=== PATIENT | male | born 1955 | race African-American/Black ===

== ENCOUNTER 2018-08-20 15:08 | Inpatient (IN) | payer OTHER ==
[~2018-08-20] VITALS: Ht 167.6 cm; Wt 71.7 kg
--- NOTE | 2018-08-20 15:10 | NUR ---
BIBRA 860 FROM HOME C/O LEFT HIP PAIN S/P FELL OFF HIS WHEELCHAIR 06/17 [facility] , ATTACHED TO MONITOR , VSS , WILL CONTINUE TO MONITOR
[2018-08-20] MEDS ORDERED: ONDANSETRON 4 MG TAB.RAPDIS ONE (15:22)
[2018-08-20] MEDS ORDERED: HYDROCODONE/APAP 10/325MG 1 EA TABLET ONE (15:22)
[2018-08-20] MEDS ORDERED: ONDANSETRON 4 MG TAB.RAPDIS SL ONE (15:30)
[2018-08-20] MEDS ORDERED: HYDROCODONE/APAP 10/325MG 1 EA TABLET PO ONE (15:30)
--- NOTE | 2018-08-20 16:20 | NUR ---
TRANSFERED PT TO CT DEPARTMENT VIA ACLS PROTOCOL , VSS ,
[2018-08-20] MEDS ORDERED: MORPHINE SULFATE INJ 4 MG/ML DISP.SYRIN ONE (17:15)
[2018-08-20] MEDS ORDERED: CIPR-262 PO (17:26)
[2018-08-20] MEDS ORDERED: FERR325T23 PO (17:26)
[2018-08-20] MEDS ORDERED: METF-440 PO (17:26)
[2018-08-20] MEDS ORDERED: IV NS 0.9% 500 ML BAG IV ONE (17:30)
[2018-08-20] MEDS ORDERED: MORPHINE SULFATE INJ 2 MG/ML DISP.SYRIN IM ONE (17:30)
--- NOTE | 2018-08-20 17:30 | NUR ---
IV STARTED @ RIGHT FA # 18 , BLOOD COLLECTED
--- NOTE | 2018-08-20 17:33 | NUR ---
CALLED NURSING SUP REQUESTED MED SURG BED FOR THIS PT
[2018-08-20 17:38] LABS: BASOPHILS # (AUTO) 0.1 /CMM (0.0-0.2); BASOPHILS % (AUTO) 0.7 % (0.0-2.0); EOSINOPHILS % (AUTO) 0.9 % (0.0-6.0); HEMATOCRIT 32 % (39-51); HEMOGLOBIN 10.4 g/dL (13.5-17.5); LYMPHOCYTES # (AUTO) 1.1 /CMM (0.8-4.8); LYMPHOCYTES % (AUTO) 15.4 % (20.0-44.0); MEAN CORPUSCULAR HGB CONC 33 g/dl (31.0-36.0); MEAN CORPUSCULAR VOLUME 78 fL (80-96); MONOCYTES # (AUTO) 0.2 /CMM (0.1-1.30); MONOCYTES % (AUTO) 3.4 % (2.0-12.0); NEUTROPHILS # (AUTO) 5.8 /CMM (1.8-8.9); NEUTROPHILS % (AUTO) 79.6 % (43.0-81.0); PLATELET COUNT (AUTO) 462 /CMM (150-450); RDW COEFFICIENT OF VARIATION 12.7 (11.5-15.0); RED BLOOD CELL COUNT(AUTO) 4.05 MIL/uL (4.5-6.0); WHITE BLOOD COUNT (AUTO) 7.3 K/uL (4.3-11.0)
[2018-08-20 17:53] LABS: CALCIUM, SERUM 8.7 mg/dL (8.5-10.1); CREATININE 1.2 mg/dL (0.6-1.3); INR 1.09 (0.85-1.15); POTASSIUM 4.1 mmol/L (3.5-5.1)
--- NOTE | 2018-08-20 18:20 | NUR ---
ADMIT 327-2
--- NOTE | 2018-08-20 18:55 | NUR ---
TEXT MESSAGED DR MCCAIN FOR THIS PATIENT
--- NOTE | 2018-08-20 19:26 | NUR ---
REPORT GIVEN TO LESLIE JERNIGAN FOR CONTINUITY OF CARE
--- NOTE | 2018-08-20 19:47 | NUR ---
Patient is resting comfortably in bed with eyes closed. Easily aroused. VSS
--- NOTE | 2018-08-20 21:32 | NUR ---
DR. SEVILLA FROM [facility] SPEAKING TO DR. MONAE REGARDING POC.
--- NOTE | 2018-08-20 22:13 | NUR ---
NO ORTHO ACCEPTING AT [facility] SO PT CAN STAY AT [place] PER [facility] [phone]
--- NOTE | 2018-08-20 22:20 | NUR ---
CALLED DR. BUSH FOR ORTHO CONSULT, PAGED.
--- NOTE | 2018-08-20 22:31 | NUR ---
DR. SMITH SPEAKING TO DR. SMITH REGARDING ORTHO CONSULT.
--- NOTE | 2018-08-20 22:32 | NUR ---
ADMIT TO [facility]-2 MED SURG
--- NOTE | 2018-08-20 22:55 | NUR ---
PT TRANSPORTED TO M/S UNIT STABLE CONDITION. HOLLIE. BENIGNO.
[2018-08-20] MEDS ORDERED: INSULIN REGULAR, HUMAN 100 UNIT/ML 3 ML VIAL SQ PRN (23:00)
[2018-08-20] MEDS ORDERED: HYDROMORPHONE INJ 0.5 MG/0.5 ML SYRINGE IV PRN (23:00)
[2018-08-20] MEDS ORDERED: ONDANSETRON HCL/PF 4 MG/2 ML VIAL IV PRN (23:00)
[2018-08-20] MEDS ORDERED: DEXTROSE 50%-WATER 50 ML DISP.SYRIN IV PRN (23:00)
[2018-08-20 23:20] VITALS: BP 163/91
[2018-08-20 23:30] VITALS: BP 163/91
--- NOTE | 2018-08-20 23:30 | NUR ---
NEW ADMISSION RN NOTES RECEIVED PATIENT FROM ER TO ROOM 327-2 VIA GURNEY ACCOMPANIED BY STAFF, A & O X 4, NO ACUTE DISTRESS NOTED. NO SOB, RESP EVEN & UNLABORED. AT RA, SATTING 97%. PT HAS C/O PAIN TO LEFT HIP WHEN MOVES HIS LEFT LEG. INSTRUCTED HIM TO KEEP HIS LEG STRAIGHT MUCH POSSIBLE, VERBALIZED UNDERSTANDING. SUPPORTED LEFT LEG WITH EXTRA PILLOWS, PT VERBALIZED THAT IT IS COMFORTABLE FOR HIM. HAS MALONE CATH IN PLACE WITH LEG BAG, NOTED WITH CLEAR YELLOW COLOR URINE. PT IS NPO EXCEPT MEDS. VS CHECKED. IV ACCESS TO RIGHT FA, INTACT PATENT. WILL START IVF ORDERED. BODY CHECK DONE, PHOTOS TAKEN, PLACED IN THE CHART. ALL NEW ORDERS VERIFIED WITH MD. ALL BELONGINGS ACCOUNTED FOR & DOCUMENTED BY STEAM CRANE OPERATOR. SAFETY MEASURES IN PLACE. BED ALARM ON. BED IN LOW LOCKED POSITION. CALL LIGHT WITHIN REACH. WILL MONITOR CLOSELY.
[2018-08-21] MEDS: IV 1/2NS 1000 ML 1,000 ML IV PRN ×2 (00:22→11:57)
[2018-08-21] MEDS: BLOOD SUGAR DIAGNOSTIC 1 EACH STRIP IN SCH ×5 (00:22→23:48)
[2018-08-21 00:25] VITALS: BP 145/88
--- NOTE | 2018-08-21 00:45 | NUR ---
HELD SLIDING SCALE INSULIN PATIENT'S BS IS 190MG/DL, PT IS NPO EXCEPT MEDS PER MD ORDER. SLIDING SCALE INSULIN HELD TO PREVENT HYPOGLYCEMIA. WILL RECHECK BS LEVEL IN AM ORDERED BY MD.
--- NOTE | 2018-08-21 02:00 | NUR ---
MS RN NOTE PATIENT NOTED TO BE SLEEPING COMFORTABLY. ASKED THE PATIENT EARLIER IF HE NEEDS PAIN MEDICINE, PT STATED THAT HE ONLY FEELS THE PAIN IF HE MOVES HIS LEG BUT OTHERWISE HE IS OK & DOES NOT NEED ANY MEDICINE AT THIS TIME. WILL MONITOR CLOSELY FOR SAFETY & TO MANAGE PAIN.
[2018-08-21] MEDS ORDERED: HYDROMORPHONE 1 MG/1 ML DISP.SYRIN ONE (05:31)
--- NOTE | 2018-08-21 05:44 | NUR ---
PRN DILAUDID GIVEN PATIENT HAS C/O LEFT HIP PAIN 06/17, 0.5MG DILAUDID IS OUT OF STOCK ON [facility] 3 [facility] & CLOT[facility]DE [facility], 1MG/ML DILAUDID IS ONLY AVAILABLE IN ER AT THIS TIME. DELON SIMS DID OVERRIDE THE ORDER, 0.5MG DOSE WAS WASTED WITH DELON SIMS & DELON COOL & 0.5 MG DOSE WAS ADMINISTERED TO THE PATIENT ORDERED BY MD. WILL REASSESS THE PT FOR EFFECTIVENESS.
--- NOTE | 2018-08-21 06:56 | NUR ---
MS RN CLOSING NOTES PATIENT SLEPT WELL @ NIGHT. A & O X 4, NO ACUTE DISTRESS NOTED. NO SOB, RESP EVEN & UNLABORED. AT RA, SATTING 96%. PT HAD C/O PAIN TO LEFT HIP, PRN DILAUDID GIVEN & WAS EFFECTIVE. SUPPORTED LEFT LEG WITH EXTRA PILLOWS, PT VERBALIZED THAT IT IS COMFORTABLE FOR HIM. HAS MALONE CATH IN PLACE WITH LEG BAG, NOTED WITH CLEAR DARK YELLOW COLOR URINE. PT IS NPO EXCEPT MEDS. IV ACCESS TO RIGHT FA, INTACT PATENT, RUNNING WITH IVF ORDERED. ALL NEEDS MET. SAFETY MEASURES IN PLACE. BED IN LOW LOCKED POSITION. CALL LIGHT WITHIN REACH. WILL ENDORSE TO AM RN FOR CONTINUITY OF CARE.
--- NOTE | 2018-08-21 07:35 | NUR ---
MS RN OPENING NOTES RECEIVED PT FROM NIGHTSHIFT NURSE IN STABLE CONDITION. PT IS A/O X3. NO SOB OR ACUTE SIGNS OF DISTRESS NOTED. BREATHING IS EVEN AND UNLABORED. PT ON RA AND SATING WELL. HE DENIES ANY PAIN AT THIS TIME. IV TO RIGHT FA NOTED TO BE PATENT NAD INTACT. NO REDNESS OR SIGNS OF INFILTRATION NOTED. PT TOLERATING IV INFUSION WELL. MALONE CATHETER NOTED TO BE DRAINING CLEAR, KENYA COLORED URINE INTO PT'S PERSONAL COLLECTION BAG. NPO STATUS MAINTAINED FOR POSSIBLE OR PROCEDURE ONCE PT IS EVALUATED BY ORTHO. PT VERBALIZED UNDERSTANDING OF DIETARY STATUS. BED IN LOW LOCKED POSITION, SIDE RAILS UP X2, CALL LIGHT WITHIN REACH. WILL CONTINUE TO MONITOR
[2018-08-21 08:00] VITALS: BP 137/73
[2018-08-21 08:44] LABS: BASOPHILS % (AUTO) 0.7 % (0.0-2.0); EOSINOPHILS % (AUTO) 2.5 % (0.0-6.0); HEMATOCRIT 28 % (39-51); HEMOGLOBIN 8.8 g/dL (13.5-17.5); LYMPHOCYTES # (AUTO) 0.9 /CMM (0.8-4.8); LYMPHOCYTES % (AUTO) 15.9 % (20.0-44.0); MEAN CORPUSCULAR HGB CONC 32 g/dl (31.0-36.0); MEAN CORPUSCULAR VOLUME 81 fL (80-96); MONOCYTES # (AUTO) 0.4 /CMM (0.1-1.30); MONOCYTES % (AUTO) 6.7 % (2.0-12.0); NEUTROPHILS # (AUTO) 4.4 /CMM (1.8-8.9); NEUTROPHILS % (AUTO) 74.2 % (43.0-81.0); PLATELET COUNT (AUTO) 357 /CMM (150-450); RDW COEFFICIENT OF VARIATION 14.6 (11.5-15.0); RED BLOOD CELL COUNT(AUTO) 3.42 MIL/uL (4.5-6.0); WHITE BLOOD COUNT (AUTO) 5.9 K/uL (4.3-11.0)
[2018-08-21 08:53] LABS: CALCIUM, SERUM 7.9 mg/dL (8.5-10.1); CREATININE 1.1 mg/dL (0.6-1.3); POTASSIUM 3.9 mmol/L (3.5-5.1)
[2018-08-21 09:45] LABS: THYROID STIMULATING HORMONE 1.007 uIU/mL (0.358-3.74)
[2018-08-21] MEDS: CEFAZOLIN 1 GM in IV NS 0.9% 50 ML IV SCH ×2 (09:56→18:08)
[2018-08-21] MEDS ORDERED: CEPHALEXIN MONOHYDRATE 250 MG CAPSULE PO SCH (12:00)
[2018-08-21 16:00] VITALS: BP 164/92
--- NOTE | 2018-08-21 18:58 | NUR ---
MS RN CLOSING NOTES PT REMAIN STABLE ALL NEEDS MET DURING SHIFT AND ORDERS CARRIED OUT ACCORDINGLY. ALL DUE MEDS GIVEN. PRN AND WOUND CARE RENDERED. PT EDUCATED ON NPO STATUS POST MIDNIGHT FOR OR PROCEDURE. CONSENTS SIGNED BY PT. CHECKLIST TO BE COMPLETED BY NIGHTSHIFT AND AM RN. IV REMAINS PATENT AND INTACT. HE WAS REPOSITIONED AND TURNED PER HOSPITAL PROTOCOL. MALONE REMAINS PATENT AND INTACT.
--- NOTE | 2018-08-21 19:34 | NUR ---
MS RN NOTES RECEIVE PT IN BED AWAKE A/OX3, NO COMPLAIN OF PAIN. IN STABLE CONDITION, NOT IN DISTRESS, SAFETY MEASURES IN PLACE WILL CONTINUE TO MONITOR.
[2018-08-21 20:00] VITALS: BP_SYST 154; BP_SYST 164; BP_DIAS 72; BP_DIAS 88
[2018-08-21] MEDS: HYDROMORPHONE 1 MG/1 ML DISP.SYRIN IV PRN (23:45)
[2018-08-22] MEDS: CEFAZOLIN 1 GM in IV NS 0.9% 50 ML IV SCH ×2 (02:53→10:18)
[2018-08-22] MEDS: IV 1/2NS 1000 ML 1,000 ML IV PRN (03:54)
--- NOTE | 2018-08-22 05:23 | NUR ---
MS RN NOTES PATIENT REFUSED PICTURE TO BE RE TAKEN AT HIS WOUNDS PER PATIENT "THEY JUST TOOK IT YESTERDAY AND THEY DON'T DO ANYTHING YET" DESPITE EXPLAINING RISKS AND BENEFITS OFFERED 3 TIMES STRONGLY REFUSAL OF PICTURES TO BE RE TAKEN.
[2018-08-22] MEDS: BLOOD SUGAR DIAGNOSTIC 1 EACH STRIP IN SCH ×4 (05:55→21:52)
[2018-08-22 06:32] LABS: BASOPHILS # (AUTO) 0.1 /CMM (0.0-0.2); BASOPHILS % (AUTO) 0.9 % (0.0-2.0); EOSINOPHILS % (AUTO) 3.2 % (0.0-6.0); HEMATOCRIT 29 % (39-51); HEMOGLOBIN 9.3 g/dL (13.5-17.5); LYMPHOCYTES # (AUTO) 1.1 /CMM (0.8-4.8); LYMPHOCYTES % (AUTO) 15.1 % (20.0-44.0); MEAN CORPUSCULAR HGB CONC 33 g/dl (31.0-36.0); MEAN CORPUSCULAR VOLUME 81 fL (80-96); MONOCYTES # (AUTO) 0.4 /CMM (0.1-1.30); MONOCYTES % (AUTO) 6.1 % (2.0-12.0); NEUTROPHILS # (AUTO) 5.4 /CMM (1.8-8.9); NEUTROPHILS % (AUTO) 74.7 % (43.0-81.0); PLATELET COUNT (AUTO) 319 /CMM (150-450); RDW COEFFICIENT OF VARIATION 14.4 (11.5-15.0); RED BLOOD CELL COUNT(AUTO) 3.55 MIL/uL (4.5-6.0); WHITE BLOOD COUNT (AUTO) 7.2 K/uL (4.3-11.0)
--- NOTE | 2018-08-22 06:33 | NUR ---
MS RN CLOSING NOTES ASLEEP AND EASILY AWAKEN, A/O X 3. MAINTAINS NPO AT MIDNIGHT. NO COMPLAIN OF PAIN AT THIS TIME. TOLERATING ROOM AIR 99%. NOT IN DISTRESS. RESPIRATION EVEN AND UNLABORED. KEPT CLEAN AND DRY AND COMFORTABLE, ALL NURSING CARE RENDERED. NEEDS ATTENDED AND ANTICIPATED. ON LOW BED AT ALL TIMES TO ENSURE SAFETY. SAFE HAZARD FREE ENVIRONMENT PROVIDED. CALL LIGHT WITHIN EASY TO REACH. WILL ENDORSE NEXT SHIFT CONTINUITY OF CARE.
[2018-08-22 06:48] LABS: ALANINE AMINOTRANSFERASE 12 U/L (12-78); ALBUMIN 2.3 g/dL (3.4-5.0); ALKALINE PHOSPHATASE 73 U/L (46-116); ASPARTATE AMINOTRANSFERASE 16 U/L (15-37); BILIRUBIN,TOTAL 0.9 mg/dL (0.2-1.0); CALCIUM, SERUM 8.3 mg/dL (8.5-10.1); CARBON DIOXIDE 23 mmol/L (21-32); CHLORIDE 104 mmol/L (98-107); CREATININE 1.1 mg/dL (0.6-1.3); GLUCOSE 111 mg/dL (74-106); MAGNESIUM 1.6 mg/dL (1.8-2.4); PHOSPHORUS 3.2 mg/dL (2.5-4.9); POTASSIUM 3.5 mmol/L (3.5-5.1); SODIUM SERUM 139 mmol/L (136-145); TOTAL PROTEIN, SERUM 6.5 g/dL (6.4-8.2); UREA NITROGEN, BLOOD 18 mg/dL (7-18)
[2018-08-22 06:51] LABS: TROPONIN I < 0.017 ng/mL (0.00-0.056)
[2018-08-22 08:35] VITALS: BP 166/92
[2018-08-22] MEDS: LISINOPRIL (20MG) 20 MG TABLET PO SCH (09:14)
[2018-08-22] MEDS: HYDROMORPHONE 1 MG/1 ML DISP.SYRIN IV PRN ×2 (09:18→16:06)
--- NOTE | 2018-08-22 09:20 | NUR ---
MS RN INITIAL NOTES Patient in bed, on room air, denies shortness of breath. Was endorsed NPO since midnight, patient reported he had a bite of sandwich this morning but not drink fluids. Instructed patient not to eat or drink for possible surgery this morning, verbalized understanding, place patient on NPO as per prior ordered. Complaint of left hip pain 8, medicated with IV Dilaudid, will reassess. Changed urinary bee bag to drain by gravity, bag off the floor. Call light within reach.
[2018-08-22] MEDS: hydrALAZINE HCL 50 MG TABLET PO SCH ×3 (09:21→16:23)
[2018-08-22] MEDS: ISOSORBIDE DINITRATE (20MG) 20 MG TABLET PO SCH ×2 (09:23→16:23)
[2018-08-22] MEDS: Magnesium 1GM/D5W 100ML PREMIX 100 ML IV SCH ×2 (10:58→12:00)
[2018-08-22] MEDS ORDERED: DEXTROSE 50%-WATER 50 ML DISP.SYRIN IV PRN (11:30)
[2018-08-22] MEDS: INSULIN REGULAR, HUMAN 100 UNIT/ML 3 ML VIAL SQ PRN ×2 (11:32→16:42)
[2018-08-22 13:00] VITALS: BP 150/84
[2018-08-22] MEDS ORDERED: ANESTHESIA TRAY IN PYXIS 1 EA TRAY MC ONE (14:06)
[2018-08-22] MEDS ORDERED: BUPIVACAINE 0.5 % PF 150 MG/30 ML VIAL ONE (14:32)
[2018-08-22] MEDS ORDERED: BUPIVACAINE MPF 0.5% W/EPI INJ 30 ML VIAL ONE (14:32)
[2018-08-22] MEDS ORDERED: BACITRACIN 50000 UNITS/VIAL ONE (14:32)
[2018-08-22] MEDS ORDERED: FENTANYL PF 100MCG/2ML AMPUL ONE (14:50)
[2018-08-22] MEDS ORDERED: MIDAZOLAM HCL 2 MG/2ML VIAL ONE (14:51)
[2018-08-22] MEDS ORDERED: BUPIVACAINE 0.75% DEXT-PF 2 ML AMPUL ONE (14:51)
[2018-08-22] MEDS: SOD FERRIC GLUC 125 MG in IV NS 0.9% 100 ML IV SCH (16:07)
--- NOTE | 2018-08-22 18:29 | NUR ---
MS RN Closing notes Patient off unit, surgery today ORIF Left femoral neck fracture by Dr. Turcios. Will endorse to oncoming RN.
[2018-08-22] MEDS ORDERED: HYDROCODONE/APAP 10/325MG 1 EA TABLET PO PRN (19:00)
[2018-08-22 19:03] VITALS: BP 109/59
--- NOTE | 2018-08-22 19:15 | NUR ---
Patient is back from surgery, s/p ORIF left hip by Dr. Turcios. Left hip dressing intact, clean and dry. Resumed pre op orders per Dr. Turcios. Endorsed to night RN.
--- NOTE | 2018-08-22 19:30 | NUR ---
RN NOTE; RECEIVED PT IN BED AWAKE AND RESPONSIVE, BREATHING EVENLY,. NO SOB. NAD. SKIN WARM AND DRY. DRESSING ON L HIP/ LATERAL THIGH C/D/I . DENIED ANY PAIN OR DISCOMFORT AT THIS TIME. F/C IN PLACE. NEEDS ATTENDED. BED LOW LOCKED. CALL LIGHT WITHIN REACH, WILL CONT TO MONITOR ,
[2018-08-22 20:00] VITALS: BP_SYST 109; BP_DIAS 48; BP_DIAS 49
[2018-08-22] MEDS ORDERED: IV PREMIX D5 1/2NS + KCL 1,000 ML IV PRN (20:00)
[2018-08-23] MEDS: ANCEF 1 GM/50 ML D5W IV SCH ×4 (01:08→08:59)
[2018-08-23] MEDS: MORPHINE SULFATE INJ 4 MG/ML DISP.SYRIN IV PRN ×2 (03:12→07:21)
--- NOTE | 2018-08-23 03:12 | NUR ---
MORPHINE GIVEN ORDERED FOR C/O SEVERE L HIP PAIN .WILL CONT TO MONITOR ,
[2018-08-23] MEDS: BLOOD SUGAR DIAGNOSTIC 1 EACH STRIP IN SCH ×2 (06:34→12:18)
[2018-08-23] MEDS: INSULIN REGULAR, HUMAN 100 UNIT/ML 3 ML VIAL SQ PRN ×2 (06:37→12:33)
--- NOTE | 2018-08-23 06:43 | NUR ---
RN NOTE; PT IN BED AWAKE AND ALERT. BREATHING EVENLY. NO SOB. NO ACUTE EVENT DURING THE NIGHT. L HIP SX DRESSING C/D/I. PAIN MED GIVEN ORDERED PER PT'S REQUEST. NEEDS ATTENDED. BED LOW LOCKED .CALL LIGHT WITHIN REACH. WILL CONT TO MONITOR,
[2018-08-23 07:07] LABS: BASOPHILS % (AUTO) 0.4 % (0.0-2.0); EOSINOPHILS % (AUTO) 2.7 % (0.0-6.0); HEMATOCRIT 25 % (39-51); HEMOGLOBIN 7.9 g/dL (13.5-17.5); LYMPHOCYTES # (AUTO) 0.8 /CMM (0.8-4.8); LYMPHOCYTES % (AUTO) 10.8 % (20.0-44.0); MEAN CORPUSCULAR HGB CONC 32 g/dl (31.0-36.0); MEAN CORPUSCULAR VOLUME 81 fL (80-96); MONOCYTES # (AUTO) 0.6 /CMM (0.1-1.30); MONOCYTES % (AUTO) 8.5 % (2.0-12.0); NEUTROPHILS # (AUTO) 5.7 /CMM (1.8-8.9); NEUTROPHILS % (AUTO) 77.6 % (43.0-81.0); PLATELET COUNT (AUTO) 314 /CMM (150-450); RDW COEFFICIENT OF VARIATION 14.3 (11.5-15.0); RED BLOOD CELL COUNT(AUTO) 3.09 MIL/uL (4.5-6.0); WHITE BLOOD COUNT (AUTO) 7.3 K/uL (4.3-11.0)
--- NOTE | 2018-08-23 07:15 | NUR ---
MS RN OPENING NOTE RECEIVED PATIENT IN BED. ALERT ORIENTED X4. ON ROOM AIR TOLERATING WELL. IN NO APPARENT DISTRESS OR DISCOMFORT AT THIS TIME. RESPIRATION EVEN AND UNLABORED. DENIES PAIN AND SOB AT THIS TIME. PATIENT WITH MALONE CATH DRAINING CLEAR YELLOW URINE. PATIENT WITH BILATERAL LOWER EXTREMITY WOUNDS DRESSING INTACT AND CLEAN. RIGHT FA 18G IVC WITH FLUIDS RUNNING AT 70ML/HR. ALL NEEDS ATTENDED. KEPT CLEAN AND COMFORTABLE. SAFETY MEASURES IN PLACE, BED IN LOW LOCKED POSITION, SIDE RAILS UP X2, CALL LIGHT WITHIN EASY REACH. WILL CONTINUE TO MONITOR.
[2018-08-23 07:19] LABS: CALCIUM, SERUM 7.9 mg/dL (8.5-10.1); CREATININE 1.3 mg/dL (0.6-1.3); POTASSIUM 3.6 mmol/L (3.5-5.1)
--- NOTE | 2018-08-23 07:23 | NUR ---
MORPHINE GIVEN ORDERED FOR C/O SEVERE L HIP PAIN .WILL CONT TO MONITOR ,
[2018-08-23 08:00] VITALS: BP 149/74
[2018-08-23] MEDS ORDERED: ENOX40DI SQ (08:23)
[2018-08-23] MEDS ORDERED: Hydrocodone/Apap 10/325MG PO (08:23)
[2018-08-23] MEDS ORDERED: LISI20TA61 PO (08:23)
[2018-08-23] MEDS ORDERED: CEPH-570 PO (08:23)
[2018-08-23] MEDS: ISOSORBIDE DINITRATE (20MG) 20 MG TABLET PO SCH ×2 (09:00→16:27)
[2018-08-23] MEDS: hydrALAZINE HCL 50 MG TABLET PO SCH ×3 (09:00→16:28)
[2018-08-23] MEDS ORDERED: ENOXAPARIN SODIUM 40 MG/0.4 ML DISP.SYRIN SQ SCH (09:00)
[2018-08-23] MEDS: LISINOPRIL (20MG) 20 MG TABLET PO SCH (09:00)
[2018-08-23] MEDS: FERROUS SULFATE (325 MG) 325 MG/TAB TABLET PO SCH ×2 (09:02→16:27)
--- NOTE | 2018-08-23 14:00 | NUR ---
PATIENT WITH BILATERAL EXTREMITY WOUNDS. DRESSING IS SOILED. CALLED DR. MCCAIN TO OBTAIN SPECIFIC INSTRUCTIONS FOR WOUND CARE. WAS TOLD WOUND CARE CONSULT WILL BE PERFORMED AT THE SNF. CHANGED THE SOILED DRESSING BY CLEANING WITH NS PATTED DRY COVERED WITH MEPILEX AND SECURED WITH KERLIX. WILL CONTINUE TO MONITOR.
--- NOTE | 2018-08-23 14:10 | NUR ---
REQUESTED SCHEDULED FERRLECT FROM PHARMACY. AWAITING DELIVERY TO ADMINISTER. WILL CONTINUE TO MONITOR.
--- NOTE | 2018-08-23 15:00 | NUR ---
REMOVED MALONE CATHETER PER DR. MCCAIN'S ORDER. TIP INTACT. WILL CONTINUE TO MONITOR FOR VOIDING.
[2018-08-23 16:00] VITALS: BP 134/62
[2018-08-23 16:28] VITALS: BP 134/62
[2018-08-23] MEDS: SOD FERRIC GLUC 125 MG in IV NS 0.9% 100 ML IV SCH (16:28)
--- NOTE | 2018-08-23 17:20 | NUR ---
MS AGENCY SERVICE COORDINATOR NOTE. RECEIVED ORDER FOR DISCHARGE PATIENT TO [facility]. REPORT GIVEN TO DELON KENNEY. PATIENT IS STABLE. ALERT ORIENTED X4. VITAL SIGNS STABLE. IN NO APPARENT DISTRESS OR DISCOMFORT. EXITCARE PREPARED AND DISCUSSED WITH PATIENT. SIGNED DISCHARGE PAPERWORK, BELONGINGS CHECKED AND ACCOUNTED FOR. FORM SIGNED ALL COPIES PLACED IN CHART. MEDICATIONS LIST ATTACHED TO PATIENT'S FOLDER. PATIENT REFUSED PICTURES OF SKIN IMPAIRMENTS. REFUSED FLU VACCINE. ALL DUE MEDICATIONS GIVEN. ORDERS CARRIED OUT. IV CATHETER REMOVED TIP INTACT. ID BAND REMOVED. PATIENT LEFT THE UNIT VIA AMBULANCE AT 1720.
== END 2018-08-23 17:45 | DRG 308 ==
LOC: ER 15:10 → MED 22:51
PROVIDERS: ADMIT Internal Medicine; ATTEND Internal Medicine
PROC: 0QS704Z Reposition Left Upper Femur with Internal Fixation Device, Open Approach (ICD-10-PCS; principal; 2018-08-22 15:00)
DX: S72.032A Displaced midcervical fracture of left femur, initial encounter for closed fracture (principal); E11.621 Type 2 diabetes mellitus with foot ulcer; L97.509 Non-pressure chronic ulcer of other part of unspecified foot with unspecified severity; Z99.3 Dependence on wheelchair; Y92.89 Other specified places as the place of occurrence of the external cause; D50.9 Iron deficiency anemia, unspecified; I10 Essential (primary) hypertension; W05.0XXA Fall from non-moving wheelchair, initial encounter; E44.1 Mild protein-calorie malnutrition; Z68.25 Body mass index [BMI] 25.0-25.9, adult
CPT/HCPCS: 36415; 71045-TC; 72192-TC; 73020; 80048-TC; 80053-TC; 80061-TC; 82728-TC; 82962-TC; 83540-TC; 83735-TC; 84100-TC; 84439-TC; 84443-TC; 84484-TC; 85025-TC; 85730-TC; 87081-TC; 93307-TC; A4216; A4606; A6402; C1713; C1769; G0378; J0690; J1170; J1650; J1815; J2250; J2270; J2405; J2704; J2916; J3010; J3475; J3490; J7030; J7040; J7050; J7060; Q0162; Z7610

== ENCOUNTER 2018-11-11 14:41 | Emergency (ER) | payer OTHER ==
[~2018-11-11] VITALS: Ht 172.7 cm; Wt 74.8 kg
[~2018-11-11 14:41] MED LIST: CEPH-570 PO; ENOX40DI SQ; FERR325T23 PO; Hydrocodone/Apap 10/325MG PO; LISI20TA61 PO; METF-440 PO
--- NOTE | 2018-11-11 15:00 | NUR ---
[id number] FROM BOARD AND CARE FOR SOB X LAST NIGHT. 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 PT AAOX4, VSS. DENIES CP, DIZZINESS, N/V @ THIS TIME. RR EVEN & UNLABORED. O2 SAT 99% RA. RENZO BOYD @ BS FOR EVAL & WILL CONT TO MONITOR.
[2018-11-11 15:29] LABS: BASOPHILS # (AUTO) 0.1 /CMM (0.0-0.2); BASOPHILS % (AUTO) 1.2 % (0.0-2.0); EOSINOPHILS % (AUTO) 0.9 % (0.0-6.0); HEMATOCRIT 26 % (39-51); HEMOGLOBIN 8.3 g/dL (13.5-17.5); LYMPHOCYTES # (AUTO) 1.5 /CMM (0.8-4.8); LYMPHOCYTES % (AUTO) 23.7 % (20.0-44.0); MEAN CORPUSCULAR HGB CONC 32 g/dl (31.0-36.0); MEAN CORPUSCULAR VOLUME 79 fL (80-96); MONOCYTES # (AUTO) 0.4 /CMM (0.1-1.30); MONOCYTES % (AUTO) 6.8 % (2.0-12.0); NEUTROPHILS # (AUTO) 4.4 /CMM (1.8-8.9); NEUTROPHILS % (AUTO) 67.4 % (43.0-81.0); PLATELET COUNT (AUTO) 459 /CMM (150-450); RED BLOOD CELL COUNT(AUTO) 3.29 MIL/uL (4.5-6.0); WHITE BLOOD COUNT (AUTO) 6.5 K/uL (4.3-11.0)
[2018-11-11 15:43] LABS: ALBUMIN 2.4 g/dL (3.4-5.0); BILIRUBIN,TOTAL 0.4 mg/dL (0.2-1.0); CALCIUM, SERUM 8.3 mg/dL (8.5-10.1); CREATININE 0.8 mg/dL (0.6-1.3); POTASSIUM 3.4 mmol/L (3.5-5.1); TOTAL PROTEIN, SERUM 6.6 g/dL (6.4-8.2)
[2018-11-11] MEDS ORDERED: HYDROCODONE/APAP 5/325MG 1 EACH TABLET ONE (15:44)
--- NOTE | 2018-11-11 15:47 | NUR ---
PT C/O LT FOOT PAIN, MEDICATED PER RENZO BOYD ORDER, PT AMRIT WELL.
[2018-11-11] MEDS ORDERED: HYDROCODONE/APAP 5/325MG 1 EACH TABLET PO ONE (16:00)
--- NOTE | 2018-11-11 16:54 | NUR ---
PT STABLE, LT FOOT PAIN IS BETTER 5/10 & AMRIT WELL. DENIES SOB, CP, DIZZINESS, N/V, WEAKNESS @ THIS TIME. WILL CONT TO MONITOR.
[2018-11-11] MEDS ORDERED: HYDR-4354 PO (16:55)
[2018-11-11] MEDS ORDERED: LISI-603 PO (16:55)
--- NOTE | 2018-11-11 18:34 | NUR ---
PT RESTING EYES CLOSED, EASILY AWAKEN BY VERBAL STIMULI. DENIES CP, SOB, DIZZINESS, N/V, WEAKNESS OR ANY OTHER DISCOMFORT @ THIS TIME. AWAITING BED ASSIGNMENT & WILL CONT TO MONITOR.
--- NOTE | 2018-11-11 19:19 | NUR ---
RECEIVED REPORT FROM CÉSAR JERNIGAN FOR IVELISSE
--- NOTE | 2018-11-11 19:20 | NUR ---
REPORT GIVEN TO DELON CASTELLANOS FOR CONT OF CARE.
--- NOTE | 2018-11-11 20:35 | NUR ---
PT RESTING COMFORTABLY IN BED. EASILY AROUSABLE. STILL ON CONTINUOUS MONITOR. WILL CONTINUE TO MONITOR
--- NOTE | 2018-11-11 21:57 | NUR ---
Patient does not wish to proceed with medical care recommended by Dr. Schofield. Patient given information related to possible complications, up to and including , which could occur as a result of leaving the hospital at this time. Patient verbalizes understanding of risks involved due to leaving against medical advice. Patient has signed AMA form. PT TRANSFERRED BACK TO FACILITY WITH [facility], GAVE REPORT TO ABDIAZIZ FOR IVELISSE
[2018-11-11 21:58] VITALS: BP 156/83
== END 2018-11-11 21:59 | disposition left against medical advice (07) ==
LOC: ER 14:42
DX: R06.02 Shortness of breath (principal); E11.9 Type 2 diabetes mellitus without complications; I10 Essential (primary) hypertension; G82.20 Paraplegia, unspecified; Z59.0 Homelessness
CPT/HCPCS: 36415; 71045-TC; 80053-TC; 83880; 84484-TC; 85025-TC; 87081-TC

== ENCOUNTER 2019-02-14 11:34 | Inpatient (IN) | payer OTHER ==
[~2019-02-14] VITALS: Ht 172.7 cm; Wt 63.5 kg
[~2019-02-14 11:34] MED LIST changes: -CEPH-570 PO; -ENOX40DI SQ; +HYDR-4354 PO; -Hydrocodone/Apap 10/325MG PO; +LISI-603 PO; -LISI20TA61 PO
[2019-02-14] MEDS ORDERED: PIPERACILLIN /TAZOBACTAM 3.375 G in IV D5W 50 ML IV ONE (12:00)
[2019-02-14] MEDS ORDERED: VANCOMYCIN 1 GM in IV D5W 250 ML IV ONE (12:00)
[2019-02-14 12:09] LABS: BASOPHILS # (AUTO) 0.1 /CMM (0.0-0.2); BASOPHILS % (AUTO) 1.1 % (0.0-2.0); EOSINOPHILS % (AUTO) 0.8 % (0.0-6.0); HEMATOCRIT 28 % (39-51); HEMOGLOBIN 9.2 g/dL (13.5-17.5); LYMPHOCYTES # (AUTO) 1.1 /CMM (0.8-4.8); LYMPHOCYTES % (AUTO) 19.8 % (20.0-44.0); MEAN CORPUSCULAR HGB CONC 33 g/dl (31.0-36.0); MEAN CORPUSCULAR VOLUME 80 fL (80-96); MONOCYTES # (AUTO) 0.4 /CMM (0.1-1.30); MONOCYTES % (AUTO) 7.7 % (2.0-12.0); NEUTROPHILS # (AUTO) 3.9 /CMM (1.8-8.9); NEUTROPHILS % (AUTO) 70.6 % (43.0-81.0); PLATELET COUNT (AUTO) 398 /CMM (150-450); RED BLOOD CELL COUNT(AUTO) 3.49 MIL/uL (4.5-6.0); WHITE BLOOD COUNT (AUTO) 5.6 K/uL (4.3-11.0)
[2019-02-14 12:19] LABS: CALCIUM, SERUM 8.9 mg/dL (8.5-10.1); CARBON DIOXIDE 25 mmol/L (21-32); CHLORIDE 103 mmol/L (98-107); CREATININE 1.2 mg/dL (0.6-1.3); GLUCOSE 135 mg/dL (74-106); POTASSIUM 3.4 mmol/L (3.5-5.1); SODIUM SERUM 140 mmol/L (136-145); UREA NITROGEN, BLOOD 28 mg/dL (7-18)
[2019-02-14] MEDS ORDERED: HYDROCODONE/APAP 10/325MG 1 EA TABLET ONE (12:22)
[2019-02-14 12:25] LABS: ALANINE AMINOTRANSFERASE 14 U/L (12-78); ALBUMIN 2.7 g/dL (3.4-5.0); ALKALINE PHOSPHATASE 109 U/L (46-116); ASPARTATE AMINOTRANSFERASE 13 U/L (15-37); BILIRUBIN,DIRECT 0.1 mg/dL (0.0-0.2); BILIRUBIN,TOTAL 0.5 mg/dL (0.2-1.0); TOTAL PROTEIN, SERUM 7.7 g/dL (6.4-8.2)
[2019-02-14] MEDS ORDERED: HYDROCODONE/APAP 10/325MG 1 EA TABLET PO ONE (12:30)
--- NOTE | 2019-02-14 13:00 | NUR ---
report given to nabil figueroa. pt awaiting transfer to floor.
--- NOTE | 2019-02-14 13:01 | NUR ---
[facility] [id number]
--- NOTE | 2019-02-14 13:05 | NUR ---
called [facility] x 2
[2019-02-14] MEDS ORDERED: HYDROCODONE/APAP 5/325MG 1 EACH TABLET PO PRN (13:30)
[2019-02-14] MEDS ORDERED: ZOLPIDEM TARTRATE 5 MG TABLET PO PRN (13:30)
[2019-02-14] MEDS ORDERED: ACETAMINOPHEN 325 MG TABLET PO PRN (13:30)
[2019-02-14] MEDS ORDERED: MAG HYDROX/AL HYDROX/SIMETH 30 ML UDC PO PRN (13:30)
[2019-02-14] MEDS ORDERED: MAGNESIUM HYDROXIDE 30 ML UDC PO PRN (13:30)
[2019-02-14] MEDS ORDERED: ONDANSETRON HCL/PF 4 MG/2 ML VIAL IVP PRN (13:30)
[2019-02-14] MEDS ORDERED: Z GUARD REMEDY 2 OZ OINT TP PRN (13:30)
--- NOTE | 2019-02-14 13:30 | NUR ---
ADMISSION NOTE PT WAS BROUGHT UP AT THIS TIME FROM THE ER. NOTED TO BE A/OX4, BREATHING EVEN AND UNLABORED ON RA, NO CURRENT COMPLAINTS OF ANY PAIN OR DISTRESS, IV IS PATENT AND INTACT, SAFETY PRECAUTIONS IN PLACE, CALL LIGHT WITHIN REACH, WILL MONITOR ACCORDINGLY.
[2019-02-14] MEDS ORDERED: FEE PK DOSING 1 MIN EA MC ONE (13:46)
[2019-02-14] MEDS: METFORMIN 500 MG TABLET PO SCH (16:58)
[2019-02-14] MEDS ORDERED: PIPERACILLIN /TAZOBACTAM 3.375 G in IV D5W 50 ML IV SCH (18:00)
[2019-02-14] MEDS: PIPERACILLIN /TAZOBACTAM 3.375 G in IV D5W 100 ML IV SCH (18:03)
--- NOTE | 2019-02-14 18:19 | NUR ---
RN CLOSING NOTE PT RESTING COMFORTABLY IN BED AT THIS TIME, A/O X4 BREATHING EVEN AND UNLABORED WITH NO COMPLAINTS OF ANY PAIN OR DISTRESS, IV ARE PATENT AND INTACT WITH ANTIBIOTIC CURRENTLY INFUSING, SAFETY PRECAUTIONS IN PLACE, CALL LIGHT WITHIN REACH, ALL NEEDS ATTENDED TO, WILL ENDORSE TO ONCOMING GUNCOTTON PACKER RN FOR IVELISSE.
--- NOTE | 2019-02-14 19:20 | NUR ---
MS/RN OPENING NOTES PT RECEIVED RESTING COMFORTABLY IN BED. OPENS EYES TO NAME. ON ROOM AIR, BREATHING EVEN AND UNLABORED. DENIES SOB AND PAIN AT THIS TIME. IV TO LFA PATENT AND INTACT AND SALINE LOCKED. IV TO RFA PATENT AND INTACT IV ABX. DRESSINGS TO BLE C/D/I. BED IN LOW/LOCKED POSITION WITH CALL LIGHT IN REACH. BILATERAL UPPER SIDE RAILS IN PLACE. HOB ELEVATED. WILL CONTINUE TO MONITOR
[2019-02-14 20:00] VITALS: BP 156/81
[2019-02-14] MEDS: HYDROCODONE/APAP 10/325MG 1 EA TABLET PO PRN (21:42)
--- NOTE | 2019-02-15 | NUR ---
MS/RN NOTES PT ROUNDING PERFORMED. PT ASLEEP, IN NO ACUTE DISTRESS.
[2019-02-15] MEDS: VANCOMYCIN 1 GM in IV D5W 250 ML IV SCH ×2 (01:36→13:29)
[2019-02-15 02:04] LABS: APPEARANCE,URINE CLEAR (CLEAR); BILIRUBIN,URINE NEGATIVE (NEGATIVE); BLOOD, URINE TRACE-INTA Ery/uL (NEGATIVE); COLOR,URINE YELLOW (YELLOW); KETONES,URINE NEGATIVE (NEGATIVE); LEUKOCYTE ESTERASE ,URINE NEGATIVE (NEGATIVE); NITRITE, URINE NEGATIVE (NEGATIVE); PROTEIN,URINE 2+ mg/dl (NEGATIVE); UGLUCOSE NEGATIVE (NEGATIVE)
--- NOTE | 2019-02-15 02:30 | NUR ---
MS/RN NOTES ROUNDING COMPLETED. PT ASLEEP, BREATHING EVEN AND UNLABORED. IN NO ACUTE DISTRESS. WILL CONTINUE TO MONITOR
[2019-02-15] MEDS: PIPERACILLIN /TAZOBACTAM 3.375 G in IV D5W 100 ML IV SCH ×3 (02:48→18:00)
[2019-02-15 03:07] LABS: BACTERIA,URINE Rare /HPF (None Seen); SQUAMOUS EPITHELIAL CELL,UR Rare /HPF (None Seen); WBC,URINE 0-2 /HPF (0-3)
--- NOTE | 2019-02-15 04:00 | NUR ---
MS/RN NOTES PT ROUNDING PERFORMED. PT SLEEPING, IN NO ACUTE DSITRESS
[2019-02-15] MEDS: HYDROCODONE/APAP 10/325MG 1 EA TABLET PO PRN ×3 (06:51→23:45)
--- NOTE | 2019-02-15 07:20 | NUR ---
MS/RN CLOSING NOTES PT AWAKE, RESTING COMFORTABLY IN BED. WATCHING TV. ON ROOM AIR, BREATHING EVEN AND UNLABORED. DENIES SOB, NOTES PAIN TO BLE, ADMINISTERED NORCO 10/325 ORDERED. IV TO RFA AND LFA PATENT AND INTACT. NO SIGNIFICANT CHANGES OVERNIGHT. ALL NEEDS MET. SLEPT WELL. BED IN LOW/LOCKED POSITION WITH CALL LIGHT IN REACH, BILAT. UPPER SIDE RAILS IN PLACE. WILL ENDORSE TO DAY SHIFT RN IVELISSE.
--- NOTE | 2019-02-15 07:30 | NUR ---
MS RN INITIAL NOTES Report received at bedside. Patient received in bed, sleeping, easily aroused. Denies any pain at the moment. Not in any type of distress. Safety measures in place. Will continue to monitor and assess patient
[2019-02-15 07:32] LABS: BASOPHILS % (AUTO) 0.8 % (0.0-2.0); EOSINOPHILS % (AUTO) 1.8 % (0.0-6.0); HEMATOCRIT 27 % (39-51); HEMOGLOBIN 8.8 g/dL (13.5-17.5); LYMPHOCYTES # (AUTO) 1.2 /CMM (0.8-4.8); LYMPHOCYTES % (AUTO) 25.5 % (20.0-44.0); MEAN CORPUSCULAR HGB CONC 33 g/dl (31.0-36.0); MEAN CORPUSCULAR VOLUME 80 fL (80-96); MONOCYTES # (AUTO) 0.4 /CMM (0.1-1.30); MONOCYTES % (AUTO) 8.1 % (2.0-12.0); NEUTROPHILS % (AUTO) 63.8 % (43.0-81.0); PLATELET COUNT (AUTO) 411 /CMM (150-450); RED BLOOD CELL COUNT(AUTO) 3.34 MIL/uL (4.5-6.0); WHITE BLOOD COUNT (AUTO) 4.7 K/uL (4.3-11.0)
[2019-02-15 07:41] LABS: CALCIUM, SERUM 8.7 mg/dL (8.5-10.1); MAGNESIUM 1.7 mg/dL (1.8-2.4); PHOSPHORUS 3.7 mg/dL (2.5-4.9); POTASSIUM 3.8 mmol/L (3.5-5.1)
[2019-02-15 08:00] VITALS: BP 144/81
--- NOTE | 2019-02-15 09:31 | NUR ---
WOUND CARE CONSULT: PT BEING SEEN BY PODIATRY AND PLASTIC SURGERY TEAM FOR MULTIPLE WOUNDS, PRESENT ON ADMISSION. DEFER TO SURGICAL TEAM FOR WOUND TREATMENT PLAN. ALL SKIN PROTECTION RECOMMENDATIONS DISCUSSED WITH NURSING STAFF. WILL SEE PRN.
[2019-02-15] MEDS: LISINOPRIL (20MG) 20 MG TABLET PO SCH (09:42)
[2019-02-15] MEDS: METFORMIN 500 MG TABLET PO SCH ×2 (09:42→16:31)
[2019-02-15] MEDS: FERROUS SULFATE (325 MG) 325 MG/TAB TABLET PO SCH (09:42)
[2019-02-15] MEDS: Magnesium 1GM/D5W 100ML PREMIX 100 ML IV SCH ×2 (10:06→11:36)
--- NOTE | 2019-02-15 11:45 | NUR ---
MS RN POST-DEBRIDEMENT NOTES Patient refused to have post-debridement photos taken including DTI on upper back and ulcer on both left and right buttocks. Witnessed by TEAM CDL DRIVER (NAEEM). Made Sylvia WOOD aware of refusal.
--- NOTE | 2019-02-15 14:12 | NUR ---
Social service consult requested by Dr. Richards for homelessness. Pt. is a 63 year old -[place] male who was admitted to [facility] for foot ulcer. SW met with pt. bedside. Pt's wheelchair and belongings were bedside. Pt. is alert and oriented x 4. Pt. was cooperative with SW during the entire assessment. Pt. is wheelchair bound. Pt. states he has been homeless for the past 19 years. SW inquired with pt. if he has worked with any caseworkers in the community. Pt. stated, " Yes, but they didn't do anything for me." Pt. states, he lives in a tent in the [place] area. Pt. receives [employer] and food stamps monthly. Pt. denies drug use and states he has a beer three months ago. Pt. occasionally smokes cigarettes. SW inquired with pt. if he has been linked to [facility] agency. Pt. stated, " I did go there but they referred me to [facility]." SW offered pt. homeless [facility] placement, however pt. declined. SW to offer pt. homeless resources upon discharge and TAP card. Pt. denies any psychiatric diagnoses. No other social service needs are requested at this time. SW is available when/ if needed.
[2019-02-15 16:00] VITALS: BP 159/83
[2019-02-15] MEDS: LACTOBACILLUS RHAMNOSUS GG 1 EACH CAP.SPRINK PO SCH (16:31)
--- NOTE | 2019-02-15 17:55 | NUR ---
MS RN CLOSING NOTES Patient remained in bed, awake, and comfortable. Alert and oriented x4, verbally responsive. All due meds given and tolerated. Complained of pain with help of pain mgmt. Wound consult done with new orders. Debridement done by Dr. Pierre and Sylvia WOOD. No SOB/labored breathing noted. Not in any type of distress. Safety measures in place. Bed in locked and lowest position with call light within reach. Patient kept clean, dry and comfortable. All anticipated needs provided and met. Continue hospitalization to continue empiric antibiotic treatment. Will endorse to oncoming shift nurse.
[2019-02-15] MEDS: GLUCERNA SHAKE 237 ML CAN PO SCH (18:00)
[2019-02-15 20:00] VITALS: BP 159/72
[2019-02-16] MEDS: VANCOMYCIN 1 GM in IV D5W 250 ML IV SCH ×2 (01:03→13:28)
[2019-02-16] MEDS: PIPERACILLIN /TAZOBACTAM 3.375 G in IV D5W 100 ML IV SCH ×3 (02:05→17:45)
--- NOTE | 2019-02-16 06:26 | NUR ---
MS RN NOTES AWAKE & RESPONSIVE. NOT IN ANY DISTRESS. NO SOB NOTED. DENIES ANY PAIN OR DISCOMFORT AT THIS TIME. WITH IV-HL PATENT & INTACT. AM CARE DONE. MONITORED ACCORDINGLY. CALL LIGHT WITHIN REACH. BED IN LOWEST POSITION. SR UP X 3 WITH BED ALARM ON FOR SAFETY. WILL ENDORSE TO NEXT SHIFT.
[2019-02-16 08:00] VITALS: BP 166/85
[2019-02-16 08:12] LABS: BASOPHILS % (AUTO) 0.8 % (0.0-2.0); CALCIUM, SERUM 8.5 mg/dL (8.5-10.1); CREATININE 1.1 mg/dL (0.6-1.3); EOSINOPHILS % (AUTO) 1.9 % (0.0-6.0); HEMATOCRIT 27 % (39-51); LYMPHOCYTES % (AUTO) 23.7 % (20.0-44.0); MEAN CORPUSCULAR HGB CONC 33 g/dl (31.0-36.0); MEAN CORPUSCULAR VOLUME 80 fL (80-96); MONOCYTES # (AUTO) 0.3 /CMM (0.1-1.30); MONOCYTES % (AUTO) 7.6 % (2.0-12.0); NEUTROPHILS # (AUTO) 2.9 /CMM (1.8-8.9); PLATELET COUNT (AUTO) 425 /CMM (150-450); POTASSIUM 3.7 mmol/L (3.5-5.1); RED BLOOD CELL COUNT(AUTO) 3.42 MIL/uL (4.5-6.0); WHITE BLOOD COUNT (AUTO) 4.4 K/uL (4.3-11.0)
[2019-02-16] MEDS: METFORMIN 500 MG TABLET PO SCH ×2 (08:51→16:38)
[2019-02-16] MEDS: FERROUS SULFATE (325 MG) 325 MG/TAB TABLET PO SCH (08:51)
[2019-02-16] MEDS: LACTOBACILLUS RHAMNOSUS GG 1 EACH CAP.SPRINK PO SCH ×2 (08:51→16:38)
[2019-02-16] MEDS: LISINOPRIL (20MG) 20 MG TABLET PO SCH (08:52)
[2019-02-16] MEDS: GLUCERNA SHAKE 237 ML CAN PO SCH ×3 (08:54→16:38)
--- NOTE | 2019-02-16 09:48 | NUR ---
RN NOTES RECEIVED REPORT FROM NURSE FROM ANTOLIN SERRANO FOR CONTINUITY OF CARE. PT IN BED AWAKE AND IN NO ACUTE SIGNS OF DISTRESS. WILL CONTINUE TO MONITOR ACCORDINGLY
[2019-02-16 16:00] VITALS: BP 162/89
[2019-02-16] MEDS: HYDROCODONE/APAP 10/325MG 1 EA TABLET PO PRN (16:20)
--- NOTE | 2019-02-16 16:21 | NUR ---
RN NOTES/PAIN MANAGEMENT PT COMPLAINED OF PAIN TO BOTH FEET WITH SCALE OF 10/10. PRN NORCO 10/325 GIVEN AT 1620. WILL CONTINUE TO MONITOR AND REASSESS PT.
--- NOTE | 2019-02-16 18:51 | NUR ---
MS RN CLOSING NOTES PT AWAKE AND RESTING COMFORTABLY IN BED. A/O X4. ABLE TO MAKE NEEDS KNOWN. ON ROOM AIR, BREATHING EVEN AND UNLABORED, NO ACUTE RESPIRATORY DISTRESS NOTED. PIV'S ON RFA AND LFA PATENT AND INTACT, BOTH FLUSHES WELL WITH NS. ALL NEEDS NAD CARE ATTENDED WELL. MAINTAINED BED IN LOW/LOCKED POSITION WITH CALL LIGHT IN REACH. BILATERAL UPPER SIDE RAILS IN PLACE. WILL ENDORSE TO DIRECTOR PAYMENT NURSE FOR IVELISSE.
[2019-02-16 20:00] VITALS: BP 146/76
[2019-02-17] MEDS: VANCOMYCIN 1 GM in IV D5W 250 ML IV SCH (01:00)
[2019-02-17] MEDS: PIPERACILLIN /TAZOBACTAM 3.375 G in IV D5W 100 ML IV SCH ×3 (02:00→17:44)
--- NOTE | 2019-02-17 07:35 | NUR ---
RN MS OPENING NOTES Received patient on room air with no sob noted. Patient has 2 IV lines, RFA 18 gauge, and LFA 22 gauge, both flushing with saline at this time. bed at the lowest setting, call light within reach. Patient's vanco trough was 29.
[2019-02-17 07:39] LABS: BASOPHILS % (AUTO) 0.8 % (0.0-2.0); HEMATOCRIT 27 % (39-51); LYMPHOCYTES # (AUTO) 1.2 /CMM (0.8-4.8); LYMPHOCYTES % (AUTO) 22.8 % (20.0-44.0); MEAN CORPUSCULAR HGB CONC 33 g/dl (31.0-36.0); MEAN CORPUSCULAR VOLUME 80 fL (80-96); MONOCYTES # (AUTO) 0.4 /CMM (0.1-1.30); MONOCYTES % (AUTO) 7.6 % (2.0-12.0); NEUTROPHILS # (AUTO) 3.4 /CMM (1.8-8.9); NEUTROPHILS % (AUTO) 66.8 % (43.0-81.0); PLATELET COUNT (AUTO) 457 /CMM (150-450); WHITE BLOOD COUNT (AUTO) 5.1 K/uL (4.3-11.0)
[2019-02-17 07:47] LABS: POTASSIUM 4.3 mmol/L (3.5-5.1)
[2019-02-17 08:00] VITALS: BP 167/79
[2019-02-17] MEDS: GLUCERNA SHAKE 237 ML CAN PO SCH ×3 (08:00→17:00)
[2019-02-17] MEDS: METFORMIN 500 MG TABLET PO SCH ×2 (08:21→17:00)
[2019-02-17] MEDS: LACTOBACILLUS RHAMNOSUS GG 1 EACH CAP.SPRINK PO SCH ×2 (08:21→17:00)
[2019-02-17] MEDS: FERROUS SULFATE (325 MG) 325 MG/TAB TABLET PO SCH (08:21)
[2019-02-17] MEDS: LISINOPRIL (20MG) 20 MG TABLET PO SCH (08:21)
[2019-02-17] MEDS: HYDROCODONE/APAP 10/325MG 1 EA TABLET PO PRN ×3 (08:29→22:02)
[2019-02-17 16:00] VITALS: BP 169/91
--- NOTE | 2019-02-17 17:23 | NUR ---
RN MS NOTES Patient refused lactobacillus, ensure, and his metformin. patient is adamant that he takes his metformin around 0711-0647.
--- NOTE | 2019-02-17 17:54 | NUR ---
RN CLOSING NOTES Patient remains on room air, no sob noted. patient is a/o x4 blind. Patient refused to have his wounds cleaned today. Olar 10/325 given twice. Patient prefers the metformin to be given at [id number]. Patient's bed at the lowest setting, call light within reach.
--- NOTE | 2019-02-17 19:25 | NUR ---
MS RN NOTES Patient in bed, awake. Stable oxygen saturation on RA, denies shortness of breath. Both foot wound, per report patient refused wound dressing today. Education provided, risk and benefits explained to patient, verbalized understanding, patient still declined treatment, denies pain. Maintained safety, will cont to monitor.
[2019-02-17 20:00] VITALS: BP 166/82
--- NOTE | 2019-02-17 21:30 | NUR ---
Elevated BP 166/82 notified . Spoke with ISRAEL Badillo, order place.
[2019-02-17] MEDS: VANCOMYCIN 0.75 GM in IV D5W 250 ML IV SCH (21:37)
[2019-02-17] MEDS: LOSARTAN POTASSIUM 25 MG TABLET PO SCH (21:41)
--- NOTE | 2019-02-17 22:06 | NUR ---
Wound dressing changed done to both feet, buttocks area.
[2019-02-18] MEDS: PIPERACILLIN /TAZOBACTAM 3.375 G in IV D5W 100 ML IV SCH ×3 (01:01→17:06)
--- NOTE | 2019-02-18 06:26 | NUR ---
MS RN CLOSING NOTES Patient in bed, A/O X2 irritable behavior. Stable oxygen saturation on RA. On IV antibiotic as scheduled, afebrile. PRN [place] given for bilateral foot pain with relief. No BM this shift, voiding diaper and urinal, adequate urine output. Repositioned every 2 hours. Planned discharge to SNF, for placement. Maintained safety, will endorse to oncoming RN.
[2019-02-18 07:16] LABS: EOSINOPHILS % (AUTO) 1.4 % (0.0-6.0); HEMATOCRIT 26 % (39-51); HEMOGLOBIN 8.7 g/dL (13.5-17.5); LYMPHOCYTES # (AUTO) 1.3 /CMM (0.8-4.8); LYMPHOCYTES % (AUTO) 27.9 % (20.0-44.0); MEAN CORPUSCULAR HGB CONC 33 g/dl (31.0-36.0); MEAN CORPUSCULAR VOLUME 79 fL (80-96); MONOCYTES # (AUTO) 0.4 /CMM (0.1-1.30); NEUTROPHILS # (AUTO) 2.9 /CMM (1.8-8.9); NEUTROPHILS % (AUTO) 61.7 % (43.0-81.0); PLATELET COUNT (AUTO) 456 /CMM (150-450); WHITE BLOOD COUNT (AUTO) 4.7 K/uL (4.3-11.0)
[2019-02-18 07:24] LABS: CALCIUM, SERUM 8.6 mg/dL (8.5-10.1); CREATININE 1.1 mg/dL (0.6-1.3); POTASSIUM 4.9 mmol/L (3.5-5.1)
--- NOTE | 2019-02-18 07:42 | NUR ---
MS RN OPENING NOTE RECEIVED PT IN BED, ALERT AND ORIENTED X2 AND BLIND IN BOTH EYES PER PT REPORT. PT DENIES CHEST PAIN, SOB, N/V. BREATHING IS EVEN AND UNLABORED ON ROOM AIR. NO ACUTE DISTRESS NOTED AT THIS TIME. RIGHT FA #18G AND LEFT FA #18G ARE SALINE LOCKED WITHOUT REDNESS OR SWELLING. ALL NEEDS ATTENDED TO. BED IS LOCKED AND IN LOWEST POSITION, SIDE RAILS UP X2, BED ALARM ON, CALL LIGHT AND POSSESSIONS WITHIN REACH.
[2019-02-18 08:00] VITALS: BP 140/85
[2019-02-18] MEDS: LISINOPRIL (20MG) 20 MG TABLET PO SCH (08:56)
[2019-02-18] MEDS: VANCOMYCIN 0.75 GM in IV D5W 250 ML IV SCH ×2 (08:56→20:56)
[2019-02-18] MEDS: FERROUS SULFATE (325 MG) 325 MG/TAB TABLET PO SCH (08:56)
[2019-02-18] MEDS: LACTOBACILLUS RHAMNOSUS GG 1 EACH CAP.SPRINK PO SCH ×2 (08:56→17:06)
[2019-02-18] MEDS: LOSARTAN POTASSIUM 25 MG TABLET PO SCH (08:57)
[2019-02-18] MEDS: METFORMIN 500 MG TABLET PO SCH ×2 (08:57→17:06)
[2019-02-18] MEDS: GLUCERNA SHAKE 237 ML CAN PO SCH ×3 (08:57→17:06)
[2019-02-18 10:05] VITALS: BP 184/93
[2019-02-18] MEDS: HYDROCODONE/APAP 10/325MG 1 EA TABLET PO PRN ×2 (10:05→15:49)
--- NOTE | 2019-02-18 10:05 | NUR ---
MS RN NOTE NORCO 10-325MG ADMINISTERED ORDERED FOR PAIN, BP: 184/93, HR 81, SP02 95% ON ROOM AIR.
[2019-02-18 16:00] VITALS: BP 160/93
--- NOTE | 2019-02-18 18:45 | NUR ---
MS RN CLOSING NOTE PT IN BED, ALERT AND ORIENTED X2 AND BLIND IN BOTH EYES. PT DENIES CHEST PAIN, SOB, N/V. BREATHING IS EVEN AND UNLABORED ON ROOM AIR. NO ACUTE DISTRESS NOTED AT THIS TIME. RIGHT FA #18G IS INFUSING ORDERED AND LEFT FA #18G IS SALINE LOCKED WITHOUT REDNESS OR SWELLING. ADLS AND WOUND CARE PROVIDED ORDERED. PT ASSISTED TO TURN AND REPOSITIONED Q2H FOR THE DURATION OF THE SHIFT. ALL NEEDS ATTENDED TO. BED IS LOCKED AND IN LOWEST POSITION, SIDE RAILS UP X2, BED ALARM ON, CALL LIGHT AND POSSESSIONS WITHIN REACH. WILL ENDORSE TO THE IN STORE REPRESENTATIVE NURSE FOR CONTINUITY OF CARE.
--- NOTE | 2019-02-18 19:20 | NUR ---
MS RN OPENING NOTES Received patient sleeping in bed, easily arousable. Breathing even and unlabored. Not in any distress. IV access on RFA infusing IV Zosyn @ 25mL/hr. No complaints as of this time. Patient stable as endorsed by the AM RN. Will continue to monitor accordingly
[2019-02-18 20:00] VITALS: BP 158/84
--- NOTE | 2019-02-18 20:58 | NUR ---
RN NOTES Vancomycin IV not given, trough level is 25
--- NOTE | 2019-02-19 05:00 | NUR ---
RN NOTES Wound dressing changed done to both feet and buttocks area.
--- NOTE | 2019-02-19 06:38 | NUR ---
MS RN CLOSING NOTES Patient still sleeping in bed, but easily arousable. Breathing even and unlabored. Not in any distress. Stable oxygen saturation on RA. No BM this shift, voiding diaper and urinal with adequate urine output. Repositioned every 2 hours. All needs attended to. Maintained safety, call light within easy reach, bed in low, locked position. Will endorse IVELISSE to oncoming RN.
--- NOTE | 2019-02-19 07:14 | NUR ---
MS RN OPENING NOTE RECEIVED PT IN BED, ALERT AND ORIENTED X2 AND BLIND IN BOTH EYES. PT DENIES CHEST PAIN, SOB, N/V. BREATHING IS EVEN AND UNLABORED ON ROOM AIR. NO ACUTE DISTRESS NOTED AT THIS TIME. RIGHT FA #18G AND LEFT FA #18G ARE SALINE LOCKED WITHOUT REDNESS OR SWELLING. ALL NEEDS ATTENDED TO. BED IS LOCKED AND IN LOWEST POSITION, SIDE RAILS UP X2, BED ALARM ON, CALL LIGHT AND POSSESSIONS WITHIN REACH.
[2019-02-19 08:00] VITALS: BP 175/85
--- NOTE | 2019-02-19 08:00 | NUR ---
MS RN NOTE PT STILL REFUSING AM LABS AT THIS TIME. STATES HE IS "SICK OF BEING POKED" AND "THIS IS WHY I NEED A BLOOD TRANSFUSION". INFORMED THE PT THAT THERE IS NO ORDER FOR BLOOD TRANSFUSION AT THIS TIME AND PROVIDED EDUCATION REGARDING RISKS AND BENEFITS OF LABS. PT STILL DECLINED AT THIS TIME.
[2019-02-19] MEDS: FERROUS SULFATE (325 MG) 325 MG/TAB TABLET PO SCH (08:17)
[2019-02-19] MEDS: LACTOBACILLUS RHAMNOSUS GG 1 EACH CAP.SPRINK PO SCH ×2 (08:17→16:07)
[2019-02-19] MEDS: METFORMIN 500 MG TABLET PO SCH ×2 (08:17→16:07)
[2019-02-19] MEDS: GLUCERNA SHAKE 237 ML CAN PO SCH ×3 (08:17→16:06)
[2019-02-19] MEDS: LISINOPRIL (20MG) 20 MG TABLET PO SCH (08:17)
[2019-02-19] MEDS: LOSARTAN POTASSIUM 25 MG TABLET PO SCH (08:18)
--- NOTE | 2019-02-19 08:55 | NUR ---
MS RN NOTE AT THE BEDSIDE FOR ASSESSMENT. PER DR. SIMON PT IS MEDICALLY CLEARED TO D/C TO SNF WITHOUT ABX. PER CASE MANAGEMENT PT IS STILL PENDING PLACEMENT.
[2019-02-19] MEDS: HYDROCODONE/APAP 10/325MG 1 EA TABLET PO PRN ×3 (08:58→20:42)
[2019-02-19 13:30] LABS: CALCIUM, SERUM 8.4 mg/dL (8.5-10.1); POTASSIUM 3.9 mmol/L (3.5-5.1)
[2019-02-19 16:00] VITALS: BP 177/88
--- NOTE | 2019-02-19 18:13 | NUR ---
MS RN CLOSING NOTE PT IN BED, ALERT AND ORIENTED X2 AND BLIND IN BOTH EYES. PT DENIES CHEST PAIN, SOB, N/V. BREATHING IS EVEN AND UNLABORED ON ROOM AIR. NO ACUTE DISTRESS NOTED AT THIS TIME. RIGHT FA #18G AND LEFT FA #18G ARE SALINE LOCKED WITHOUT REDNESS OR SWELLING. ADLS AND WOUND CARE PROVIDED ORDERED. PT ASSISTED TO TURN AND REPOSITIONED Q2H FOR THE DURATION OF THE SHIFT. ALL NEEDS ATTENDED TO. BED IS LOCKED AND IN LOWEST POSITION, SIDE RAILS UP X2, BED ALARM ON, CALL LIGHT AND POSSESSIONS WITHIN REACH. WILL ENDORSE TO THE BOTTLING LINE ATTENDANT NURSE FOR CONTINUITY OF CARE.
--- NOTE | 2019-02-19 19:20 | NUR ---
MS RN RECEIVE PT IN BED A/O X 3 BLIND, IRRITABLE. RESPIRATIONS EVEN AND UNLABORED, NO SOB NOTED, NO DISTRESS, SAFETY MEASURES IN PLACE. WILL CONTINUE TO MONITOR.
[2019-02-19 20:00] VITALS: BP 158/80
--- NOTE | 2019-02-20 06:04 | NUR ---
MS RN CLOSING PT ASLEEP AND EASILY AWAKEN, RESPIRATION EVEN AND UNLABORED, STABLE AND NOT IN DISTRESS, AM CARE RENDERED, AFEBRILE. NEEDS ATTENDED AND ANTICIPATED, KEPT CLEAN AND DRY AND COMFORTABLE. TREATMENT ORDERED, GOOD SKIN CARE. REPOSITION EVERY 2 HOURS. NO COMPLAIN OF PAIN. SAFETY MEASURES AT ALL TIMES. ENDORSE TO THE NEXT SHIFT POC.
--- NOTE | 2019-02-20 06:55 | NUR ---
PT REFUSED BLOOD LAB DRAW PER PT LATER MORNING WILL ENDORSE NEXT SHIFT.
--- NOTE | 2019-02-20 07:40 | NUR ---
MS RN NOTES PATIENT RECEIVED RESTING INSIDE ROOM. AWAKE, ALERT AND ORIENTED X 3, VERBALLY RESPONSIVE AND RESPONDS TO VERBAL AND TACTILE STIMULI. BREATHING EVEN AND UNLABORED. NO ACUTE DISTRESS AT THIS TIME. IV INTACT AND FLUSHING WELL. PATIENT BLIND. SAFETY PRECAUTIONS IN PLACE. WILL CONTINUE TO MONITOR. BED LOCKED AND IN LOW POSITION. BILATERAL UPPER SIDE RAILS UP AND LOCKED. CALL LIGHT WITHIN EASY REACH
[2019-02-20 08:00] VITALS: BP 161/81
[2019-02-20] MEDS: LISINOPRIL (20MG) 20 MG TABLET PO SCH (08:57)
[2019-02-20] MEDS: METFORMIN 500 MG TABLET PO SCH ×2 (08:57→17:11)
[2019-02-20] MEDS: LACTOBACILLUS RHAMNOSUS GG 1 EACH CAP.SPRINK PO SCH ×2 (08:57→16:16)
[2019-02-20] MEDS: GLUCERNA SHAKE 237 ML CAN PO SCH ×3 (08:57→16:17)
[2019-02-20] MEDS: FERROUS SULFATE (325 MG) 325 MG/TAB TABLET PO SCH (08:57)
[2019-02-20] MEDS: LOSARTAN POTASSIUM 25 MG TABLET PO SCH (08:58)
[2019-02-20] MEDS: HYDROCODONE/APAP 10/325MG 1 EA TABLET PO PRN (12:03)
[2019-02-20 12:59] LABS: CALCIUM, SERUM 8.8 mg/dL (8.5-10.1); POTASSIUM 4.6 mmol/L (3.5-5.1)
[2019-02-20 16:00] VITALS: BP 166/90
[2019-02-20] MEDS ORDERED: DEXTROSE 50%-WATER 50 ML DISP.SYRIN IV PRN (16:30)
--- NOTE | 2019-02-20 16:45 | NUR ---
MS RN NOTES PLACED CALL TO DR. SIMON REGARDING METFORMIN AND REQUESTED FOR FSBS MONITORING. WITH NEW ORDER FOR FSBS ACHS, NO INSULIN PER SLIDING SCALE AT THIS TIME. MD TO RE-EVAL FSBS RESULTS. PATIENT MADE AWARE AND VERBALIZED UNDERSTANDING. WILL CONTINUE TO MONITOR
[2019-02-20] MEDS: BLOOD SUGAR DIAGNOSTIC 1 EACH STRIP IN SCH ×2 (17:10→22:19)
--- NOTE | 2019-02-20 18:29 | NUR ---
MS RN NOTES PATIENT RESTING INSIDE ROOM. AWAKE, ALERT AND ORIENTED, VERBALLY RESPONSIVE AND RESPONDS TO VERBAL AND TACTILE STIMULI. BREATHING EVEN AND UNLABORED. NO ACUTE DISTRESS AT THIS TIME. PATIENT KEPT CLEAN, DRY AND COMFORTABLE. WILL ENDORSE TO INCOMING SHIFT FOR IVELISSE. BED LOCKED AND IN LOW POSITION. BILATERAL UPPER SIDE RAILS UP AND LOCKED. CALL LIGHT WITHIN EASY REACH
--- NOTE | 2019-02-20 19:20 | NUR ---
MS/RN NOTES RECEIVED PT. LYING IN BED. PT. IS AWAKE, ALERT AND ORIENTED X2-3. BREATHING EVEN AND UNLABORED ON ROOM AIR. NO SOB, RESPIRATORY DISTRESS OR COMPLAINTS OF PAIN NOTED AT THIS TIME. PT. WITH RIGHT FOREARM 18 GAUGE IV SALINE LOCK PRESENT, PATENT AND INTACT. PT. WITH LEFT FOREARM 18 GAUGE IV SALINE LOCK PRESENT, PATENT AND INTACT. BED LOCKED AND IN LOWEST POSITION, SIDE RAILS UP X2, CALL LIGHT WITHIN REACH, WILL CONTINUE TO MONITOR.
[2019-02-20 20:00] VITALS: BP 168/82
[2019-02-21] MEDS: BLOOD SUGAR DIAGNOSTIC 1 EACH STRIP IN SCH ×4 (06:33→21:45)
--- NOTE | 2019-02-21 06:40 | NUR ---
MS/RN NOTES PT. IS LYING IN BED RESTING. BREATHING EVEN AND UNLABORED ON ROOM AIR. NO SOB, RESPIRATORY DISTRESS OR COMPLAINTS OF PAIN NOTED AT THIS TIME. PT. WITH RIGHT FOREARM 18 GAUGE IV SALINE LOCK PRESENT, PATENT AND INTACT. PT. WITH LEFT FOREARM 18 GAUGE IV SALINE LOCK PRESENT, PATENT AND INTACT. ALL PT. NEEDS MET. BED LOCKED AND IN LOWEST POSITION, SIDE RAILS UP X2, CALL LIGHT WITHIN REACH, WILL ENDORSE TO DAYSHIFT NURSE FOR CONTINUITY OF CARE.
[2019-02-21 08:00] VITALS: BP 168/82
[2019-02-21] MEDS: GLUCERNA SHAKE 237 ML CAN PO SCH ×3 (08:00→17:00)
--- NOTE | 2019-02-21 08:00 | NUR ---
MS RN OPENING NOTES Received Patient comfortable in bed, eating breakfast and watching TV. A/O x 3. VS stable with acute distress. Breathing even and unlabored on room air with no signs and symptoms of respiratory distress. Patient stated pain level of 8/10 on BILATERAL FEET AND LEGS. Will intervene as ordered. 18g PIV on RFA and LFA saline lock. No redness, swelling, nor pain on IV sites. IV sites flushes well. Urinal at bedside. Dressings intact. Bed locked and in lowest position with side rails x 2 up. Call light within reach. Will continue to monitor.
[2019-02-21] MEDS: LISINOPRIL (20MG) 20 MG TABLET PO SCH (09:15)
[2019-02-21] MEDS: LACTOBACILLUS RHAMNOSUS GG 1 EACH CAP.SPRINK PO SCH ×2 (09:15→18:29)
[2019-02-21] MEDS: LOSARTAN POTASSIUM 25 MG TABLET PO SCH (09:15)
[2019-02-21] MEDS: METFORMIN 500 MG TABLET PO SCH ×2 (09:16→21:45)
[2019-02-21] MEDS: FERROUS SULFATE (325 MG) 325 MG/TAB TABLET PO SCH (09:16)
[2019-02-21] MEDS: HYDROCODONE/APAP 10/325MG 1 EA TABLET PO PRN ×2 (09:22→15:20)
--- NOTE | 2019-02-21 16:30 | NUR ---
MS RN NOTES PATIENT WITH NEW ORDER FROM DR ZAMARRIPA TO INCREASE METFORMIN TO 1000MG PO Q12. ORDER NOTED AND CARRIED OUT. PATIENT MADE AWARE AND VERBALIZED UNDERSTANDING.
--- NOTE | 2019-02-21 16:45 | NUR ---
MS RN NOTES WOUND TX DONE ORDERED. PATIENT TOLERATED WELL. WILL CONTINUE TO MONITOR
--- NOTE | 2019-02-21 18:55 | NUR ---
MS RN CLOSING NOTES Patient comfortable in bed, and watching TV. A/O x 3. VS stable with acute distress. Breathing even and unlabored on room air with no signs and symptoms of respiratory distress. Denies pain. 18g PIV on RFA and LFA saline lock. No redness, swelling, nor pain on IV sites. IV sites flushes well. Urinal at bedside. Patient kept, clean and dry. Wound dressing on BILATERAL HEELS and SACRAL AREA clean, dry and intact. All needs rendered. Bed locked and in lowest position with side rails x 2 up. Call light within reach. Will endorse plan of care to oncoming shift.
--- NOTE | 2019-02-21 19:10 | NUR ---
MS RN NOTES RECEIVED PT IN BED AWAKE AND ABLE TO MAKE NEEDS KNOWN. PT A/O X3. BREATHING EVEN AND UNLABORED WITH NO S/S OF ACUTE DISTRESS OR SOB NOTED. PT DENIES PAIN AT THIS TIME. PT WITH WITH RFA AND LFA #18G SL, PATENT AND INTACT. SAFETY MEASURES IN PLACE WITH BED IN LOWEST LOCK POSITION WITH SIDE RAILS UP X2. CALL LIGHT WITHIN REACH. WILL CONTINUE TO MONITOR.
[2019-02-21 20:00] VITALS: BP 154/83
[2019-02-22] MEDS: BLOOD SUGAR DIAGNOSTIC 1 EACH STRIP IN SCH ×4 (06:42→21:12)
--- NOTE | 2019-02-22 07:28 | NUR ---
MS RN NOTES PT IN BED SLEEPING BUT EASILY AWOKEN VERBALLY OR BY TOUCH, AND ABLE TO MAKE NEEDS KNOWN. PT A/O X3. BREATHING EVEN AND UNLABORED WITH NO S/S OF ACUTE DISTRESS OR SOB NOTED THROUGHOUT SHIFT. PT DENIES PAIN AT THIS TIME. PT WITH WITH RFA AND LFA #18G SL, PATENT AND INTACT. SAFETY MEASURES IN PLACE WITH BED IN LOWEST LOCK POSITION WITH SIDE RAILS UP X2. PT STILL AWAITING PLACEMENT. CALL LIGHT WITHIN REACH. WILL ENDORSE TO ONCOMING NURSE FOR IVELISSE.
--- NOTE | 2019-02-22 07:53 | NUR ---
MS RN OPENING NOTES RECEIVED PT IN BED. AWAKE. A/O X 3-4. TOLERATING RA, WITH NO ACUTE RESPIRATORY DISTRESS NOTED. PT DENIES PAIN AT THIS MOMENT. PT DENIES ANY CONCERNS OR QUESTIONS AT THIS TIME WELL. PIV TO RFA AND LFA G18 SL, FLUSHED WITH NS, INTACT AND OPERATIONAL. PT KEPT COMFORTABLE. PT'S BED IN LOWEST, LOCKED POSITION WITH SR X2. CALL LIGHT KEPT WITHIN REACH. WILL CONTINUE PLAN OF CARE.
[2019-02-22 08:00] VITALS: BP 168/85
[2019-02-22] MEDS: GLUCERNA SHAKE 237 ML CAN PO SCH ×3 (08:00→16:54)
[2019-02-22] MEDS: FERROUS SULFATE (325 MG) 325 MG/TAB TABLET PO SCH (08:23)
[2019-02-22] MEDS: LISINOPRIL (20MG) 20 MG TABLET PO SCH (08:24)
[2019-02-22] MEDS: LACTOBACILLUS RHAMNOSUS GG 1 EACH CAP.SPRINK PO SCH ×2 (08:24→16:54)
[2019-02-22] MEDS: METFORMIN 500 MG TABLET PO SCH ×2 (08:24→21:07)
[2019-02-22] MEDS: LOSARTAN POTASSIUM 25 MG TABLET PO SCH (08:27)
[2019-02-22 10:00] VITALS: BP 149/69
[2019-02-22 16:00] VITALS: BP 160/79
--- NOTE | 2019-02-22 16:07 | NUR ---
MS RN NOTES ALL DRESSINGS FOR WOUND WERE CHANGED. PT AWARE. WILL CONTINUE TO MONITOR.
[2019-02-22] MEDS: HYDROCODONE/APAP 10/325MG 1 EA TABLET PO PRN (18:17)
--- NOTE | 2019-02-22 18:50 | NUR ---
MS RN CLOSING NOTES PT REMAINS IN BED. AWAKE. A/O X 3-4. TOLERATING RA, WITH NO ACUTE RESPIRATORY DISTRESS NOTED. PT DENIES PAIN AT THIS MOMENT. PIV TO RFA AND LFA G18 SL, FLUSHED WITH NS, INTACT AND OPERATIONAL. ALL NEEDS AND CARE PROVIDED. DISCHARGE ON HOLD PER CM, WILL NOTIFY MD ED. PT KEPT COMFORTABLE. PT'S BED IN LOWEST, LOCKED POSITION WITH SR X2. CALL LIGHT KEPT WITHIN REACH. WILL ENDORSE TO AGRONOMY PROFESSOR NURSE FOR IVELISSE.
--- NOTE | 2019-02-22 19:10 | NUR ---
MS RN NOTES RECEIVED PT IN BED AWAKE AND ABLE TO MAKE NEEDS KNOWN. PT A/O X3. BREATHING EVEN AND UNLABORED WITH NO S/S OF ACUTE DISTRESS OR SOB NOTED. PT DENIES PAIN AT THIS TIME. PT WITH WITH RFA AND LFA #18G SL, PATENT AND INTACT. SNACKS GIVEN TO PT. CLEAN PT AND CHANGED LINEN. SAFETY MEASURES IN PLACE WITH BED IN LOWEST LOCK POSITION WITH SIDE RAILS UP X2. CALL LIGHT WITHIN REACH. WILL CONTINUE TO MONITOR.
[2019-02-22 20:27] VITALS: BP 165/86
[2019-02-23] MEDS: BLOOD SUGAR DIAGNOSTIC 1 EACH STRIP IN SCH ×4 (07:35→21:30)
--- NOTE | 2019-02-23 07:42 | NUR ---
MS RN NOTES RECEIVED PT IN BED AWAKE AND ABLE TO MAKE NEEDS KNOWN. PT A/O X3. BREATHING EVEN AND UNLABORED WITH NO S/S OF ACUTE DISTRESS OR SOB NOTED THROUGHOUT SHIFT. PT KEPT CLEAN, DRY, AND COMFORTABLE. PT DENIES PAIN AT THIS TIME. PT WITH WITH RFA AND LFA #18G SL, PATENT AND INTACT. CLEAN PT AND CHANGED LINEN. SAFETY MEASURES IN PLACE WITH BED IN LOWEST LOCK POSITION WITH SIDE RAILS UP X2. CALL LIGHT WITHIN REACH. WILL ENDORSE TO ONCOMING NURSE FOR IVELISSE.
--- NOTE | 2019-02-23 07:48 | NUR ---
MS RN OPENING NOTES RECEIVED PT IN BED, ASLEEP, EASILY AROUSED. A/O X 3-4. TOLERATING RA, WITH NO ACUTE RESPIRATORY DISTRESS NOTED. PT DENIES PAIN AT THIS MOMENT. PT DENIES ANY CONCERNS OR QUESTIONS AT THIS TIME WELL. PIV TO RFA 18G AND LFA G22 SL, FLUSHED WITH NS, INTACT AND OPERATIONAL. PT KEPT COMFORTABLE. PT'S BED IN LOWEST, LOCKED POSITION WITH SR X2. CALL LIGHT KEPT WITHIN REACH. WILL CONTINUE PLAN OF CARE.
[2019-02-23 08:00] VITALS: BP 162/92
[2019-02-23] MEDS: GLUCERNA SHAKE 237 ML CAN PO SCH ×3 (08:00→17:00)
[2019-02-23] MEDS: METFORMIN 500 MG TABLET PO SCH ×2 (08:31→21:23)
[2019-02-23] MEDS: LACTOBACILLUS RHAMNOSUS GG 1 EACH CAP.SPRINK PO SCH ×2 (08:31→16:05)
[2019-02-23] MEDS: FERROUS SULFATE (325 MG) 325 MG/TAB TABLET PO SCH (08:31)
[2019-02-23] MEDS: LISINOPRIL (20MG) 20 MG TABLET PO SCH (08:32)
[2019-02-23] MEDS: LOSARTAN POTASSIUM 25 MG TABLET PO SCH (08:32)
[2019-02-23] MEDS: HYDROCODONE/APAP 10/325MG 1 EA TABLET PO PRN ×2 (11:47→18:58)
[2019-02-23 16:00] VITALS: BP_SYST 174; BP_DIAS 77; BP_DIAS 87
[2019-02-23] MEDS: CLONIDINE HCL 0.1 MG TABLET PO PRN (16:06)
--- NOTE | 2019-02-23 16:51 | NUR ---
MS RN NOTES PT AGREED TO HAVE WOUND CARE DONE. STILL ON GOING PLAN FOR DISCHARGE, JUST WAITING FOR CM. PT REFUSED FOR PICTURES OF WOUND TO BE TAKEN AT THIS MOMENT. RN EXPLAINED FACILITY PROTOCOL, PT STILL REFUSED. WILL ENDORSE TO SENIOR SALES COMPENSATION ANALYST NURSE.
[2019-02-23 18:02] VITALS: BP 159/85
--- NOTE | 2019-02-23 19:02 | NUR ---
MS RN CLOSING NOTES PT REMAINS IN BED, ASLEEP, EASILY AROUSED. A/O X 3-4. TOLERATING RA, WITH NO ACUTE RESPIRATORY DISTRESS NOTED. PT DENIES PAIN AT THIS MOMENT. PT DENIES ANY CONCERNS OR QUESTIONS AT THIS TIME WELL. PIV TO RFA 18G AND LFA G22 SL, BOTH FLUSHED WITH NS, INTACT AND OPERATIONAL. PT KEPT COMFORTABLE. PT'S BED IN LOWEST, LOCKED POSITION WITH SR X2. CALL LIGHT KEPT WITHIN REACH. WILL CONTINUE PLAN OF CARE.
--- NOTE | 2019-02-23 19:30 | NUR ---
MS RN RECEIVE PT IN BED A/O X 3 LEGALLY BLIND, NO PAIN, RESPIRATIONS EVEN AND UNLABORED, NO SOB NOTED, NO DISTRESS, SAFETY MEASURES IN PLACE. WILL CONTINUE TO MONITOR.
[2019-02-23 20:00] VITALS: BP 154/82
[2019-02-24] MEDS: BLOOD SUGAR DIAGNOSTIC 1 EACH STRIP IN SCH ×4 (05:57→21:08)
--- NOTE | 2019-02-24 06:09 | NUR ---
MS RN CLOSING ASLEEP AND EASILY AWAKEN, TOLERATING ROOM AIR 98%. RESPIRATION EVEN AND UNLABORED, NOT IN DISTRESS, KEPT CLEAN AND DRY AND COMFORTABLE. NEEDS ATTENDED AND ANTICIPATED, GOOD SKIN CARE. SLEPT WELL DURING THE NIGHT 10 HOURS. NO COMPLAIN OF PAIN. SAFETY MEASURES AT ALL TIMES. ENDORSE TO THE NEXT SHIFT POC.
--- NOTE | 2019-02-24 07:24 | NUR ---
MS RN OPENING NOTES RECEIVED PT ASLEEP IN BED, EASILY AROUSABLE. A/O X 3-4. ABLE TO MAKE NEEDS KNOWN. TOLERATING ROOM AIR, WITH NO ACUTE RESPIRATORY DISTRESS NOTED. PIV'S TO RFA 18G AND LFA G22 BOTH INTACT AND PATENT, FLUSHED WITH NS. PT'S BED IN LOWEST, LOCKED POSITION WITH SR X2. CALL LIGHT WITHIN REACH. WILL CONTINUE PLAN OF CARE.
[2019-02-24] MEDS: GLUCERNA SHAKE 237 ML CAN PO SCH ×3 (08:00→17:30)
[2019-02-24 08:08] VITALS: BP 155/82
[2019-02-24] MEDS: METFORMIN 500 MG TABLET PO SCH ×2 (09:15→21:07)
[2019-02-24] MEDS: FERROUS SULFATE (325 MG) 325 MG/TAB TABLET PO SCH (09:15)
[2019-02-24] MEDS: LACTOBACILLUS RHAMNOSUS GG 1 EACH CAP.SPRINK PO SCH ×2 (09:15→17:34)
[2019-02-24] MEDS: LOSARTAN POTASSIUM 50 MG TABLET PO SCH (09:16)
[2019-02-24] MEDS: LISINOPRIL (20MG) 20 MG TABLET PO SCH ×2 (09:17→17:35)
--- NOTE | 2019-02-24 12:53 | NUR ---
RN NOTES WOUND TREATMENTS AND DRESSINGS CHANGED DONE ORDERED. WILL CONTINUE TO MONITOR.
[2019-02-24] MEDS: HYDROCODONE/APAP 10/325MG 1 EA TABLET PO PRN (14:58)
[2019-02-24 16:30] VITALS: BP 169/85
--- NOTE | 2019-02-24 18:57 | NUR ---
MS RN CLOSING NOTES: PATIENT'S DRESSINGS ARE CLEAN, DRY AND INTACT. RESTING COMFORTABLY IN BED. CALL LIGHT WITHIN REACH. NO ACUTE EVENTS DURING THE SHIFT.
--- NOTE | 2019-02-24 19:45 | NUR ---
MS RN OPENING NOTES: RECEIVED PT ON ROOM AIR AND IS TOLERATING WELL. PT WATCHING TELEVISION AT THIS TIME. NO SOB NOTED. NO S/S OF DISTRESS. PT HAS IV ON R FOREARM#18G AND IS PATENT AND INTACT. PT ALSO HAS ANOTHER IV ON L FOREARM #22G AND IS PATENT AND INTACT. BOTH CURRENTLY H/L. BED ALARM ACTIVATED. BED KEPT IN LOW, LOCKED POSITION, AND SIDE RAILS X 2UP. WILL CONTINUE TO MONITOR PT.
[2019-02-24 20:00] VITALS: BP 161/88
[2019-02-24] MEDS: CLONIDINE HCL 0.1 MG TABLET PO PRN ×2 (21:42→21:45)
--- NOTE | 2019-02-24 21:46 | NUR ---
RN NOTES: BP ELEVATED SHOWN ON VITALS. CLONIDINE 0.1MG PO WAS ADMINISTERED. WILL CONTINUE TO REASSESS BP.
--- NOTE | 2019-02-25 03:22 | NUR ---
MS RN NOTES: PT REFUSING TO HAVE BLOOD PRESSURE RECHECKED. EXPLAINED TO PT RISKS OF NOT HAVING IT RECHECKED HIS BP WAS ELEVATED EARLIER AND PT GOT ANGRY. "JUST LEAVE IT ALONE." INFORMED HIM THAT WILL TRY AGAIN LATER AND RECHECK IN THE MORNING.
[2019-02-25 06:10] VITALS: BP 150/77
[2019-02-25] MEDS: BLOOD SUGAR DIAGNOSTIC 1 EACH STRIP IN SCH ×4 (06:36→21:02)
--- NOTE | 2019-02-25 06:46 | NUR ---
MS RN CLOSING NOTES: ALL NEEDS WERE ATTENDED AND ANTICIPATED FOR. DRESSINGS REMAINS INTACT AND ARE KEPT CLEAN AND DRY. PT ON ROOM AIR AND TOLERATING WELL. NO SOB NOTED. NO S/S OF DISTRESS. IVS REMAIN INTACT. BOTH ARE CURRENTLY H/L. BLOOD SUGAR THIS AM WAS 104. BED ALARM ACTIVATED. BED KEPT IN LOW, LOCKED POSITION, AND SIDE RAILS X 2UP. WILL ENDORSE TO AM NURSE FOR IVELISSE. Addendum: 02/25/19 at 0711 by CEDRICK MARTIN RN ENDORSED TO AM NURSE FOR IVELISSE.
[2019-02-25 08:00] VITALS: BP 136/71
--- NOTE | 2019-02-25 08:02 | NUR ---
MS RN NOTES PATIENT RECEIVED RESTING INSIDE ROOM. AWAKE, ALERT AND ORIENTED X 4, VERBALLY RESPONSIVE AND RESPONDS TO VERBAL AND TACTILE STIMULI. BREATHING EVEN AND UNLABORED. NO ACUTE DISTRESS AT THIS TIME. DENIES ANY PAIN OR DISCOMFORT. PATIENT REFUSED TO HAVE BLOOD PRESSURE CHECKED AT THIS TIME. VERBALIZING, "I'M OKAY, LEAVE ME ALONE" RISKS AND BENEFITS EXPLAINED BUT TO NO AVAIL. PATIENT STRONGLY REFUSED AND REPEATED, "LEAVE ME ALONE". WILL CONTINUE TO MONITOR. BED LOCKED AND IN LOW POSITION. BILATERAL UPPER SIDE RAILS UP AND LOCKED. CALL LIGHT WITHIN EASY REACH
[2019-02-25] MEDS ORDERED: AMLODIPINE BESYLATE 10 MG TABLET PO SCH (09:00)
[2019-02-25] MEDS: LISINOPRIL (20MG) 20 MG TABLET PO SCH ×2 (09:37→16:40)
[2019-02-25] MEDS: LOSARTAN POTASSIUM 50 MG TABLET PO SCH (09:37)
[2019-02-25] MEDS: GLUCERNA SHAKE 237 ML CAN PO SCH ×3 (09:37→16:40)
[2019-02-25] MEDS: FERROUS SULFATE (325 MG) 325 MG/TAB TABLET PO SCH (09:38)
[2019-02-25] MEDS: METFORMIN 500 MG TABLET PO SCH ×2 (09:38→21:02)
[2019-02-25] MEDS: LACTOBACILLUS RHAMNOSUS GG 1 EACH CAP.SPRINK PO SCH ×2 (09:38→16:40)
[2019-02-25] MEDS: HYDROCODONE/APAP 10/325MG 1 EA TABLET PO PRN (09:38)
[2019-02-25] MEDS: AMLODIPINE BESYLATE 5 MG TABLET PO SCH (09:40)
--- NOTE | 2019-02-25 18:35 | NUR ---
MS RN NOTES PATIENT RESTING INSIDE ROOM. AWAKE, ALERT AND ORIENTED X 3, VERBALLY RESPONSIVE AND RESPONDS TO VERBAL AND TACTILE STIMULI. BREATHING EVEN AND UNLABORED. NO CHANGES IN LOC NOTED AT THIS TIME. PATIENT CALM AND RELAXED. WOUND TX DONE ORDERED AND PATIENT TOLERATED WELL. PATIENT KEPT CLEAR, DRY AND COMFORTABLE. WILL ENDORSE TO INCOMING SHIFT FOR IVELISSE. BED LOCKED AND IN LOW POSITION. BILATERAL UPPER SIDE RAILS UP AND LOCKED. CALL LIGHT WITHIN EASY REACH
--- NOTE | 2019-02-25 19:38 | NUR ---
MS RN OPENING NOTES: RECEIVED PT ON ROOM AIR AND IS TOLERATING WELL. PT IS IN BED AND LISTENING TO MUSIC. PT APPEARS TO BE LEGALLY BLIND. PT IS A/OX3. NO SOB NOTED. NO S/S OF DISTRESS. IVS ON R AND L FOREARM REMAIN INTACT. BOTH HAVE BEEN FLUSHED AND ARE H/L. INSTRUCTED PT TO USE CALL LIGHT FOR ASSISTANCE. BED KEPT IN LOW, LOCKED POSITION, AND SIDE RAILS X 2UP. BED ALARM ACTIVATED. WILL CONTINUE TO MONITOR PT.
[2019-02-25 20:00] VITALS: BP 168/75
[2019-02-25] MEDS: CLONIDINE HCL 0.1 MG TABLET PO PRN (21:02)
--- NOTE | 2019-02-25 21:07 | NUR ---
MS RN NOTES: NOTED ELEVATED BP OF 168/75. PT WAS ADMINISTERED CLONIDINE 0.1 MG PO. WILL CONTINUE TO MONITOR.
--- NOTE | 2019-02-25 22:30 | NUR ---
MS RN NOTES: OFFERED PT TO DO WOUND CARE BUT PT REFUSED. "THE OTHER NURSE JUST DID IT AWHILE AGO. HOW MANY TIMES DO YOU GUYS HAVE TO DO IT?" INFORMED PT THAT WILL CHECK AT A LATER TIME AND SEE IF IT IS SOILED AND CHANGE PRN. WILL TRY AGAIN AT ANOTHER TIME.
[2019-02-26 05:10] VITALS: BP 154/86
--- NOTE | 2019-02-26 05:57 | NUR ---
MS RN NOTES: WOUND TX PERFORMED ORDERED.
--- NOTE | 2019-02-26 06:19 | NUR ---
MS RN CLOSING NOTES: ALL NEEDS WERE ATTENDED AND ANTICIPATED FOR. PT KEPT CLEAN, DRY, AND COMFORTABLE. NO SOB NOTED. NO S/S OF DISTRESS. IVS REMAIN INTACT AND ARE STILL H/L. WOUND TX PERFORMED ORDERED. BLOOD SUGAR THIS AM WAS 95. BED KEPT IN LOW, LOCKED POSITION, AND SIDE RAILS X 2UP. WILL ENDORSE TO AM NURSE FOR IVELISSE.
[2019-02-26] MEDS: BLOOD SUGAR DIAGNOSTIC 1 EACH STRIP IN SCH ×4 (06:30→21:08)
--- NOTE | 2019-02-26 07:48 | NUR ---
MS RN NOTES PATIENT RECEIVED RESTING INSIDE ROOM. SLEEPING, EASILY AROUSABLE THROUGH VERBAL AND TACTILE STIMULI. BREATHING EVEN AND UNLABORED. DENIES ANY PAIN OR DISCOMFORT AT THIS TIME. NO CHANGES IN LOC NOTED AT THIS TIME. WILL CONTINUE TO MONITOR. BED LOCKED AND IN LOW POSITION. BILATERAL UPPER SIDE RAILS UP AND LOCKED. CALL LIGHT WITHIN EASY REACGH
[2019-02-26 08:00] VITALS: BP 164/74
[2019-02-26 08:56] LABS: BASOPHILS # (AUTO) 0.1 /CMM (0.0-0.2); BASOPHILS % (AUTO) 1.4 % (0.0-2.0); EOSINOPHILS % (AUTO) 1.8 % (0.0-6.0); HEMATOCRIT 32 % (39-51); HEMOGLOBIN 10.3 g/dL (13.5-17.5); LYMPHOCYTES # (AUTO) 1.3 /CMM (0.8-4.8); LYMPHOCYTES % (AUTO) 25.9 % (20.0-44.0); MEAN CORPUSCULAR HGB CONC 33 g/dl (31.0-36.0); MEAN CORPUSCULAR VOLUME 80 fL (80-96); MONOCYTES # (AUTO) 0.3 /CMM (0.1-1.30); MONOCYTES % (AUTO) 5.3 % (2.0-12.0); NEUTROPHILS # (AUTO) 3.2 /CMM (1.8-8.9); NEUTROPHILS % (AUTO) 65.6 % (43.0-81.0); PLATELET COUNT (AUTO) 464 /CMM (150-450); RED BLOOD CELL COUNT(AUTO) 3.93 MIL/uL (4.5-6.0); WHITE BLOOD COUNT (AUTO) 4.8 K/uL (4.3-11.0)
[2019-02-26] MEDS: LISINOPRIL (20MG) 20 MG TABLET PO SCH ×2 (08:59→17:34)
[2019-02-26] MEDS: FERROUS SULFATE (325 MG) 325 MG/TAB TABLET PO SCH (08:59)
[2019-02-26] MEDS: LOSARTAN POTASSIUM 50 MG TABLET PO SCH (08:59)
[2019-02-26] MEDS: GLUCERNA SHAKE 237 ML CAN PO SCH ×3 (08:59→17:34)
[2019-02-26] MEDS: LACTOBACILLUS RHAMNOSUS GG 1 EACH CAP.SPRINK PO SCH ×2 (08:59→17:34)
[2019-02-26] MEDS: AMLODIPINE BESYLATE 5 MG TABLET PO SCH (09:00)
[2019-02-26] MEDS: METFORMIN 500 MG TABLET PO SCH ×2 (09:00→21:08)
[2019-02-26] MEDS: HYDROCODONE/APAP 10/325MG 1 EA TABLET PO PRN ×2 (09:00→20:22)
[2019-02-26 09:03] LABS: CALCIUM, SERUM 9.1 mg/dL (8.5-10.1); CREATININE 0.8 mg/dL (0.6-1.3); POTASSIUM 4.3 mmol/L (3.5-5.1)
--- NOTE | 2019-02-26 11:00 | NUR ---
MS RN NOTES WOUND TX DONE ORDERED. PATIENT TOLERATED PROCEDURE WELL. WILL CONTINUE TO MONITOR
[2019-02-26 16:00] VITALS: BP 153/80
--- NOTE | 2019-02-26 18:42 | NUR ---
MS RN NOTES PATIENT RESTING INSIDE ROOM. AWAKE, ALERT AND ORIENTED, VERBALLY RESPONSIVE AND RESPONDS TO VERBAL AND TACTILE STIMULI. NO ACUTE DISTRESS NOTED AT THIS TIME. NO C/O PAIN OR DISCOMFORT. PATIENT KEPT CLEAN, DRY AND COMFORTABLE. WILL ENDORSE TO INCOMING SHIFT FOR IVELISSE. BED LOCKED AND IN LOW POSITION. BILATERAL UPPER SIDE RAILS UP AND LOCKED. CALL LIGHT WITHIN EASY REACH
--- NOTE | 2019-02-26 19:20 | NUR ---
RN Initial Notes: Received report from Jeffrey JERNIGAN. Pt resting in bed, awake, a/o x3, pleasant, on ra, denies sob, iv access patent and flushing well, on hl. pt s/p wound debridement (ble) on 02/15/19, dressing c/d/i, no active bleeding noted, contractures noted on ble. Discussed plan of care to the pt, agree, but refused to take pictures of skin issues, per pt "he does not want to take photos because he wants doctor to take a look at his wound themselves/in person", however pt agree for dressing change. urinal within reach. ble offloaded on pillows. safety precautions for fall initiated, call light in reach, will continue monitoring pt.
[2019-02-26 20:00] VITALS: BP 180/107
--- NOTE | 2019-02-26 20:22 | NUR ---
prn norco: pt c/o 08/17 pain in his bilateral legs and sacral area, requesting for norco, prn norco 10/325 mg tab po administered at this time, will continue to monitor and reassess pt
[2019-02-26 21:06] VITALS: BP 175/88
[2019-02-26] MEDS: CLONIDINE HCL 0.1 MG TABLET PO PRN (21:08)
--- NOTE | 2019-02-26 21:09 | NUR ---
accu check: blood sugar 171, no insulin coverage per md,metformin administered as ordered, prn catapres 0.1 mg tab administered for 175/88 blood pressure. will continue to monitor.
[2019-02-26 22:00] VITALS: BP 150/67
--- NOTE | 2019-02-27 04:00 | NUR ---
rn notes: pt been refusing to be reposition since midnight, education provided to pt, distance learning program coordinator made aware
--- NOTE | 2019-02-27 04:58 | NUR ---
rn notes: offered to do dressing change at this time, but pt refused, stated its too early, informed pt now is the best time to clean his wound, as later will be start of passing meds, pt refused, stated to do it later, education provided to the pt
[2019-02-27] MEDS: BLOOD SUGAR DIAGNOSTIC 1 EACH STRIP IN SCH ×4 (05:46→21:07)
--- NOTE | 2019-02-27 05:46 | NUR ---
accu check 105: no insulin coverage per md
--- NOTE | 2019-02-27 06:00 | NUR ---
rn notes: pt refused bed bath according to bed teacher, refused to be reposition, refused wound dressing, pt became irritated, education provided to pt, will offer again after breakfast
--- NOTE | 2019-02-27 06:53 | NUR ---
rn closing notes: Pt remains a/o x3 on ra denies any sob, iv access remains patent and flushing well, on hl, pt refused photos, despite providing education. dressing on ble remains c/d/i, offloaded on pillows. vs remains stable, needs attended. safety precautions for fall remains engaged, call light in reach, will endorse to day rn for continuity of care.
[2019-02-27 08:00] VITALS: BP 153/69
--- NOTE | 2019-02-27 08:00 | NUR ---
m/s certified home health aide: initial assessment received pt in bed awake, a/ox4. no c/o pain or any discomfort at this time. pt still wants the doctor see his wounds and refusing tx and photos. pt easily irritated. instructed to call for assistance. will continue to monitor.
[2019-02-27] MEDS: LISINOPRIL (20MG) 20 MG TABLET PO SCH ×2 (08:25→17:26)
[2019-02-27] MEDS: LACTOBACILLUS RHAMNOSUS GG 1 EACH CAP.SPRINK PO SCH ×2 (08:25→17:26)
[2019-02-27] MEDS: FERROUS SULFATE (325 MG) 325 MG/TAB TABLET PO SCH (08:25)
[2019-02-27] MEDS: LOSARTAN POTASSIUM 50 MG TABLET PO SCH (08:26)
[2019-02-27] MEDS: GLUCERNA SHAKE 237 ML CAN PO SCH ×3 (08:26→17:27)
[2019-02-27] MEDS: AMLODIPINE BESYLATE 5 MG TABLET PO SCH (08:26)
[2019-02-27] MEDS: METFORMIN 500 MG TABLET PO SCH ×2 (08:26→21:03)
[2019-02-27] MEDS: HYDROCODONE/APAP 10/325MG 1 EA TABLET PO PRN (08:28)
--- NOTE | 2019-02-27 09:45 | NUR ---
m/s escalator operator: plastic surgeon f/u ask pt if we can take a photo on his wound and have plastic surgeon look at them, but pt refused photos, stated, "you guys are not taking pictures again, but i want the doctor to see my wounds." tx done to right ischium wound by melvin (plastic surgeon) and left ischium healed per melvin and no need for wound tx, stated, "i will change the treatment orders."
--- NOTE | 2019-02-27 12:00 | NUR ---
m/s datastage developer: notes lunch served. instructed to call for assistance. will continue to monitor.
--- NOTE | 2019-02-27 14:00 | NUR ---
m/s commercial print salesman: notes in bed resting comfortable. pt still non-compliant with wound tx, still refusing photos, pt just wants md to see and change his dressing after the doctor sees the wound, stated, "you guys are just basing my wounds on photos, otherwise i won't get to see the doctor and see my wounds." instructed to call for assistance. will monitor.
--- NOTE | 2019-02-27 16:00 | NUR ---
m/s night shift supervisor: notes pt easily gets irritated and yelled at television news video editor not to take his blood pressure again, you guys need a new machine, this blood pressure machine is not working as stated. approach pt calmly, but pt still insisting that we are not doing our job correctly. pt refused vital signs to be taken at this time. will continue to monitor.
[2019-02-27] MEDS: CLONIDINE HCL 0.1 MG TABLET PO PRN (17:26)
--- NOTE | 2019-02-27 18:25 | NUR ---
m/s farm operations manager: notes resting quietly in bed. pt remains easily irritated. pt still refusing wound tx, wants md to look at it. instructed to call for assistance. will continue to monitor.
--- NOTE | 2019-02-27 19:15 | NUR ---
m/s burner hand: notes report given to lianet (rn) for continuity of care.
--- NOTE | 2019-02-27 19:30 | NUR ---
RN MS OPENING NOTES RECEIVED PATIENT IN BED, ALERT AND ORIENTED X3, VERBALLY RESPONSIVE, ABLE TO MAKE NEEDS KNOWN. BREATHING EVEN AND UNLABORED. NO SOB NOTED. TOLERATING ROOM AIR. CURRENTLY WITH NO COMPLAINTS OF PAIN OR DISCOMFORT. NO FACIAL GRIMACING. IV ON RIGHT AND LEFT FOREARM INTACT AND PATENT. SKIN DRY AND WARM TO TOUCH. DRESSINGS IN PLACE - CLEAN DRY AND INTACT. PATIENT STILL REFUSING TO HAVE PICTURES TAKEN OF WOUND. ALL OTHER NEEDS MET. SAFETY MEASURES IN PLACE. CALL LIGHT WITHIN REACH. WILL CONTINUE TO MONITOR.
[2019-02-27 20:00] VITALS: BP 159/82
--- NOTE | 2019-02-28 | NUR ---
RN MS NOTES PATIENT REFUSED TO BE REPOSITIONED. ALSO REFUSED TO HAVE SKIN ASSESSED. EDUCATION PROVIDED INCLUDING RISKS AND BENEFITS BUT STILL REFUSED.
--- NOTE | 2019-02-28 02:00 | NUR ---
RN MS NOTES PATIENT REFUSED TO BE REPOSITIONED. EXPLAINED RISKS AND BENEFITS. WILL CONTINUE TO MONITOR.
--- NOTE | 2019-02-28 05:00 | NUR ---
RN MS NOTES PATIENT REFUSED TO BE REPOSITIONED. EXPLAINED RISKS AND BENEFITS. WILL CONTINUE TO MONITOR.
--- NOTE | 2019-02-28 06:01 | NUR ---
RN MS NOTES PATIENT REFUSED TO HAVE GOWN AND LINEN CHANGED. PATIENT REFUSED TO BE TOUCHED AT ALL. EXPLAINED RISKS AND BENEFITS. ENCOURAGED MULTIPLE TIMES, BUT STILL REFUSED.
[2019-02-28] MEDS: BLOOD SUGAR DIAGNOSTIC 1 EACH STRIP IN SCH ×4 (06:38→21:29)
--- NOTE | 2019-02-28 06:56 | NUR ---
RN MS CLOSING NOTES PATIENT RESTING IN BED. NO ACUTE CHANGES. NO DISTRESS. BREATHING EVEN AND UNLABORED. NO SOB NOTED. TOLERATING ROOM AIR. CURRENTLY WITH NO COMPLAINTS OF PAIN OR DISCOMFORT. NO FACIAL GRIMACING. IV ON RIGHT AND LEFT FOREARM INTACT AND PATENT. PATIENT STILL REFUSING TO HAVE PICTURES TAKEN OF WOUND. PATIENT ALSO REFUSED TO BE REPOSITIONED OR HAVE SKIN ASSESSED MULTIPLE TIMES. SAFETY MEASURES IN PLACE. CALL LIGHT WITHIN REACH. WILL ENDORSE TO ONCOMING NURSE FOR IVELISSE.
[2019-02-28 08:00] VITALS: BP 155/79
[2019-02-28] MEDS: GLUCERNA SHAKE 237 ML CAN PO SCH ×3 (08:00→17:00)
--- NOTE | 2019-02-28 08:00 | NUR ---
m/s roll icer: initial assessment received pt in bed awake, a/ox4. no c/o pain or any discomfort at this time. pt remains easily irritated. at times, pt gets verbally abusive when discuss his wound care. instructed to call for assistance. will continue to monitor.
[2019-02-28] MEDS: AMLODIPINE BESYLATE 5 MG TABLET PO SCH (08:12)
[2019-02-28] MEDS: FERROUS SULFATE (325 MG) 325 MG/TAB TABLET PO SCH (08:12)
[2019-02-28] MEDS: METFORMIN 500 MG TABLET PO SCH ×2 (08:12→21:30)
[2019-02-28] MEDS: LISINOPRIL (20MG) 20 MG TABLET PO SCH ×2 (08:12→16:41)
[2019-02-28] MEDS: LACTOBACILLUS RHAMNOSUS GG 1 EACH CAP.SPRINK PO SCH ×2 (08:12→16:39)
[2019-02-28] MEDS: LOSARTAN POTASSIUM 50 MG TABLET PO SCH (08:12)
--- NOTE | 2019-02-28 10:00 | NUR ---
m/s scuba diving instructor: notes pt refusing staff to assess his all his wounds. pt easily gets irritable despite teaching provided on wound care. will continue to monitor. instructed to call for assistance.
--- NOTE | 2019-02-28 10:45 | NUR ---
m/s senior maintenance machinist: md visit seen and examined by broderick (kenrick) with order to d'c to snf. order acknowledged.
--- NOTE | 2019-02-28 11:00 | NUR ---
m/s taxi dancer: notes case management making arrangement, just awaiting for medicare per jose. pt made aware re: d'c to snf today, but pt became verbally abusive, started yelling and cursing at staff, stated, "you are not going to send me to any convalescent home, i'm done with all of you, you are fucking..." jose (case management) notified and made aware that pt is refusing to go to snf. case management will talk to pt as stated.
[2019-02-28] MEDS: HYDROCODONE/APAP 10/325MG 1 EA TABLET PO PRN ×2 (15:03→19:29)
--- NOTE | 2019-02-28 15:03 | NUR ---
m/s manufacturing planner: notes medicated with norco 10/325 1 tab po prior to wound care. tx done to kalina foot wounds, right ischium, left shoulder, and mepilex applied to sacral area for skin management, but pt still refuses photos on wounds. instructed to call for assistance. will continue to monitor.
[2019-02-28 16:00] VITALS: BP 171/84
--- NOTE | 2019-02-28 16:03 | NUR ---
m/s vascular ultrasound technologist: notes in bed awake, voiced no discomfort. instructed to call for assistance. will continue to monitor.
--- NOTE | 2019-02-28 18:12 | NUR ---
m/s relocation counselor: notes in bed awake, no c/o pain or any discomfort. needs attended. will continue to monitor. call light within reach.
--- NOTE | 2019-02-28 19:00 | NUR ---
m/s telecommunicator supervisor: notes bedside report given to giovana (rn) for continuity of care.
--- NOTE | 2019-02-28 19:10 | NUR ---
MS RN NOTE RECEIVED PT IN STABLE CONDITION A&O X3, ABLE TO MAKE NEEDS KNOWN. CURRENTLY WATCHING TV IN BED. NO SIGNS OF SOB OR DISTRESS. ALL CURRENT NEEDS ATTENDED TO. SAFETY PRECAUTIONS IN PLACE: BED LOW, LOCKED, UPPER RAILS UP, AND CALL LIGHT WITHIN REACH. WILL CONT. TO MONITOR.
--- NOTE | 2019-02-28 19:29 | NUR ---
MS RN NOTE PRN NORCO 10-325 MG GIVEN FOR PAIN IN R LOWER HIP. WILL CONT TO MONITOR.
[2019-02-28 20:00] VITALS: BP 142/70
[2019-02-28 20:03] VITALS: BP 142/70
--- NOTE | 2019-02-28 22:32 | NUR ---
MS JERNIGAN NOTE PT MOVED TO ROOM 325-1. REMAINS IN STABLE CONDITION, ALL BELONGINGS ALSO MOVED. Addendum: 03/01/19 at 0613 by FORD MAJOR RN CHARTING MADE FOR WRONG PT. PLEASE DISREGARD
--- NOTE | 2019-03-01 05:30 | NUR ---
MS RN NOTE PT REFUSED WOUND TX. STATED THAT IT WAS DONE DURING THE DAY AND WOULD RATHER SLEEP. RISKS AND BENEFITS EXPLAINED. PT VERBALIZES UNDERSTANDING.
--- NOTE | 2019-03-01 06:14 | NUR ---
MS RN NOTE PT IN STABLE CONDITION A&O X3, ABLE TO MAKE NEEDS KNOWN. CURRENTLY RESTING IN BED. NO SIGNS OF SOB OR DISTRESS. ALL CURRENT NEEDS ATTENDED TO. SAFETY PRECAUTIONS IN PLACE: BED LOW, LOCKED, UPPER RAILS UP, AND CALL LIGHT WITHIN REACH. WILL CONT. TO MONITOR AND ENDORSE TO NEXT SHIFT FOR IVELISSE.
[2019-03-01] MEDS: BLOOD SUGAR DIAGNOSTIC 1 EACH STRIP IN SCH ×2 (06:30→12:03)
--- NOTE | 2019-03-01 07:35 | NUR ---
MS RN OPENING NOTES RECEIVED PT LAYING IN BED, SLEEPING COMFORTABLY BUT EASILY AROUSABLE. PT IS A/O X4, AFEBRILE. RESPIRATIONS ARE EVEN AND UNLABORED, NOT IN ANY ACUTE DISTRESS NOTED. PT DENIES ANY PAIN AT THIS TIME, NO C/O SOB, N/V. IV SITE TO RFA/LFA INTACT, NO INFILTRATION NOTED. DRESSING KEPT CLEAN AND DRY. SAFETY MEASURES ARE IN PLACE. INSTRUCTED PT TO USE CALL LIGHT WHEN ASSISTANCE IS NEEDED, CALL LIGHT IS LEFT WITHIN REACH. WILL MONITOR THROUGHOUT SHIFT FOR CONTINUITY OF CARE.
[2019-03-01 08:00] VITALS: BP 147/78
[2019-03-01] MEDS: LISINOPRIL (20MG) 20 MG TABLET PO SCH (08:47)
[2019-03-01] MEDS: GLUCERNA SHAKE 237 ML CAN PO SCH ×2 (08:47→12:00)
[2019-03-01] MEDS: AMLODIPINE BESYLATE 5 MG TABLET PO SCH (08:48)
[2019-03-01 08:49] VITALS: BP 147/78
[2019-03-01] MEDS: FERROUS SULFATE (325 MG) 325 MG/TAB TABLET PO SCH (08:49)
[2019-03-01] MEDS: LACTOBACILLUS RHAMNOSUS GG 1 EACH CAP.SPRINK PO SCH (08:49)
[2019-03-01] MEDS: METFORMIN 500 MG TABLET PO SCH (08:49)
[2019-03-01] MEDS: LOSARTAN POTASSIUM 50 MG TABLET PO SCH (08:49)
[2019-03-01] MEDS: HYDROCODONE/APAP 10/325MG 1 EA TABLET PO PRN (08:55)
--- NOTE | 2019-03-01 09:00 | NUR ---
MS RN NOTES-- PT SEEN AND EXAMINED BY ISRAEL GONZALEZ. WOUND DRESSING CHANGE DONE.
--- NOTE | 2019-03-01 15:00 | NUR ---
MS RN NOTES-- CM NOTIFIED PT WITH RN AT BEDSIDE THAT HE GOT ACCE[facility] AT [facility] CHOICE. PER PT, HE DOESNT WANT TO GO TO [facility]. PT HAD DISCHARGE ORDER SINCE YESTERDAY. PT NOW STATES HE JUST NEEDS A BUS TOKEN.
--- NOTE | 2019-03-01 15:10 | NUR ---
MS RN NOTES-- RN AND OVERHAULER HELPER AT BEDSIDE. INFORMED PT REGARDING AMA/DISCHARGE PAPERWORK, UPON TRYING TO EXPLAIN, PT STATED THAT HE NEVER WANTED TO GO AMA AND WANTS TO GO TO [facility]. NOTIFIED CM AND STATED TRANSPORTATION WILL BE HERE AT 4PM. NOTIFIED PT AND NOW STATED "FORGET [facility], I AM NOT GOING ANYWHERE. YOU CANT TELL ME WHAT TO DO." NOTIFIED CHARGE NURSE. CHARGE NURSE EXPLAINED THE REASON WHY HE IS HERE AND THAT THE DOCTOR EXPLAINED TO HIM THAT HE WILL BE DISCHARGE TO A SNF TO CARE FOR HIM AND HIS WOUNDS. PT CONTINUES TO REFUSE. SECURITY WAS CALLED.
--- NOTE | 2019-03-01 15:15 | NUR ---
MS RN NOTES-- SECURITY CAME AND PT STATED "I DONT WANT TO GO TO THAT STUPID REHAB, JUST GIVE ME A DAMN BUS TOKEN." RN AND PROGRAMMER NUMERICAL CONTROL HELPED PT GET DRESSED. CM PROVIDED CLOTHES. IV ACCESS REMOVED, APPLIED PRESSURE AND TOLERATED WELL. ID BAND REMOVED. PT THEN STARTED TO GET AGITATED AND STATED "I AM NOT GOING ANYWHERE." SECURITY THEN REPEATED TO THE PATIENT THAT HE NEEDS TO GO TO THE REHAB CENTER SO HIM AND HIS WOUNDS CAN BE TAKEN CARED OF. PT CONTINUES TO REFUSE TO GO TO THE REHAB CENTER RECOMMENDED BY OFELIA AND BOY.
--- NOTE | 2019-03-01 15:30 | NUR ---
MS JERNIGAN NOTES-- PT REFUSES TO SIGN AMA FORM AND BELONGINGS LIST. EXPLAINED THE RISKSX3 AND PT STILL NOTED WITH REFUSAL. OFFERED SHOES TO WEAR, PT REFUSED. OFFERED SNACKS, DRINKS AND SANDWICHES WHICH PT AGREED TO TAKE. PT LEFT WITH ALL HIS BELONGINGS AND NEW CLOTHING TO WEAR, ESCORTED BY [employer]TER AND SECURITY WITH BUS TOKEN. Addendum: 03/01/19 at 1809 by IZABELLA CANALES RN PT WAS SAFELY ESCORTED DOWN WITH OWN WHEELCHAIR ACCOMPANIED BY [employer] SORTER AND SECURITY. Addendum: 03/07/19 at 1040 by IZABELLA CANALES RN LATE ENTRY-- PT REFUSED DISCHARGE PHOTOS TO HIS SKIN/WOUNDS PT WAS ADAMANT ABOUT LEAVING AMA.
== END 2019-03-01 15:30 | disposition home or self-care (01) | DRG 380 ==
LOC: ER 11:36 → MED 13:18
PROVIDERS: ADMIT Family Medicine; ATTEND Nurse Practitioner Acute Care
PROC: 0JBQ0ZZ Excision of Right Foot Subcutaneous Tissue and Fascia, Open Approach (ICD-10-PCS; principal; 2019-02-15)
PROC: 0JB90ZZ Excision of Buttock Subcutaneous Tissue and Fascia, Open Approach (ICD-10-PCS; principal; 2019-02-15)
DX: E11.621 Type 2 diabetes mellitus with foot ulcer (principal); L89.323 Pressure ulcer of left buttock, stage 3; L89.120 Pressure ulcer of left upper back, unstageable; N17.0 Acute kidney failure with tubular necrosis; E44.0 Moderate protein-calorie malnutrition; R53.2 Functional quadriplegia; D68.59 Other primary thrombophilia; E11.42 Type 2 diabetes mellitus with diabetic polyneuropathy; L89.313 Pressure ulcer of right buttock, stage 3; E11.65 Type 2 diabetes mellitus with hyperglycemia; Z99.3 Dependence on wheelchair; L97.529 Non-pressure chronic ulcer of other part of left foot with unspecified severity; L97.419 Non-pressure chronic ulcer of right heel and midfoot with unspecified severity; I10 Essential (primary) hypertension; Z59.0 Homelessness; Z79.84 Long term (current) use of oral hypoglycemic drugs; Z79.899 Other long term (current) drug therapy; D63.8 Anemia in other chronic diseases classified elsewhere; E87.6 Hypokalemia; Z83.3 Family history of diabetes mellitus
CPT/HCPCS: 36415; 80048-TC; 80061-TC; 80076-TC; 80202-TC; 81000-TC; 82962-TC; 83605-TC; 83735-TC; 84100-TC; 84484-TC; 85025-TC; 85730-TC; 87040-TC; 87081-TC; 87086-TC; A4349; A6253; A6402; A6403; G0378; J2543; J3370; J3475; J7030; J7060

== ENCOUNTER 2019-03-07 12:59 | Emergency (ER) | payer OTHER ==
[~2019-03-07] VITALS: Ht 175.3 cm; Wt 54.4 kg
--- NOTE | 2019-03-07 13:08 | NUR ---
PT [facility]IB[id number] the ground c/o generalized weakness, PT IS AAOX4, NOT IN RESPIRATORY DISTRESS, HOOKED TO MONITOR, NOTED ELEVATED BP, KEPT RESTED AND COMFORTABLE, WILL CONTINUE TO MONITOR.
--- NOTE | 2019-03-07 13:15 | NUR ---
SEEN AND EXAMINED BY ANTON WHITT NP.
[2019-03-07] MEDS ORDERED: IV NS 0.9% 1,000 ML BAG IV ONE (13:30)
--- NOTE | 2019-03-07 13:30 | NUR ---
IV LINE ESTABLISHED, LABS DRAWNED AND SENT TO LAB.
[2019-03-07] MEDS ORDERED: PIPERACILLIN /TAZOBACTAM 3.375 G in IV D5W 50 ML IV ONE (14:00)
[2019-03-07] MEDS ORDERED: VANCOMYCIN 1 GM in IV D5W 250 ML IV ONE (14:00)
[2019-03-07 14:02] LABS: BASOPHILS # (AUTO) 0.1 /CMM (0.0-0.2); EOSINOPHILS % (AUTO) 1.7 % (0.0-6.0); HEMATOCRIT 29 % (39-51); HEMOGLOBIN 9.3 g/dL (13.5-17.5); LYMPHOCYTES # (AUTO) 1.2 /CMM (0.8-4.8); LYMPHOCYTES % (AUTO) 19.8 % (20.0-44.0); MEAN CORPUSCULAR HGB CONC 32 g/dl (31.0-36.0); MEAN CORPUSCULAR VOLUME 84 fL (80-96); MONOCYTES # (AUTO) 0.5 /CMM (0.1-1.30); NEUTROPHILS # (AUTO) 4.1 /CMM (1.8-8.9); NEUTROPHILS % (AUTO) 68.5 % (43.0-81.0); PLATELET COUNT (AUTO) 308 /CMM (150-450)
[2019-03-07 14:09] LABS: CALCIUM, SERUM 8.9 mg/dL (8.5-10.1); CARBON DIOXIDE 26 mmol/L (21-32); CHLORIDE 105 mmol/L (98-107); GLUCOSE 128 mg/dL (74-106); POTASSIUM 3.8 mmol/L (3.5-5.1); SODIUM SERUM 140 mmol/L (136-145); UREA NITROGEN, BLOOD 22 mg/dL (7-18)
[2019-03-07 14:14] LABS: ALANINE AMINOTRANSFERASE 19 U/L (12-78); ALBUMIN 2.7 g/dL (3.4-5.0); ALKALINE PHOSPHATASE 97 U/L (46-116); ASPARTATE AMINOTRANSFERASE 20 U/L (15-37); BILIRUBIN,DIRECT 0.1 mg/dL (0.0-0.2); BILIRUBIN,TOTAL 0.5 mg/dL (0.2-1.0); TOTAL PROTEIN, SERUM 7.3 g/dL (6.4-8.2)
--- NOTE | 2019-03-07 15:24 | NUR ---
URINE SPECIMEN COLLECTED AND SENT TO LAB.
[2019-03-07] MEDS ORDERED: ENALAPRILAT INJ (1.25 MG/ML) 1.25 MG/ML VIAL IV ONE ×2 (15:26→15:30)
[2019-03-07 15:30] LABS: APPEARANCE,URINE Clear (CLEAR); BILIRUBIN,URINE Negative (NEGATIVE); BLOOD, URINE Moderate Ery/uL (NEGATIVE); COLOR,URINE Yellow (YELLOW); KETONES,URINE Negative (NEGATIVE); LEUKOCYTE ESTERASE ,URINE Negative (NEGATIVE); NITRITE, URINE Negative (NEGATIVE); PH,URINE 5.5 (5.0-8.0); PROTEIN,URINE >=300 mg/dl (NEGATIVE); UGLUCOSE 100 MG/DL mg/dL (NEGATIVE); UROBILINOGEN,URINE 0.2 EU/dL (0.2)
[2019-03-07 15:50] LABS: BACTERIA,URINE Rare /HPF (None Seen)
[2019-03-07 15:51] LABS: SQUAMOUS EPITHELIAL CELL,UR Few /HPF (None Seen)
--- NOTE | 2019-03-07 16:16 | NUR ---
110-TELE DIABETIC ULCER
[2019-03-07] MEDS ORDERED: HYDROCODONE/APAP 10/325MG 1 EA TABLET ONE (16:23)
--- NOTE | 2019-03-07 16:25 | NUR ---
NORCO 10/325 PO GIVEN VERBAL ORDERED BY ANTON WHITT NP.
[2019-03-07] MEDS ORDERED: HYDROCODONE/APAP 10/325MG 1 EA TABLET PO ONE (16:30)
--- NOTE | 2019-03-07 18:36 | NUR ---
RAJESH TREVINO TO [facility] [address] [facility] [address] ETA [id number] HOURS TRIP #[id number]
--- NOTE | 2019-03-07 18:44 | NUR ---
FOOD TRAY PROVIDED.
--- NOTE | 2019-03-07 19:20 | NUR ---
REPORT GIVEN TO DELON TRIVEDI FOR IVELISSE.
[2019-03-07 20:27] VITALS: BP 176/89
--- NOTE | 2019-03-07 20:55 | NUR ---
SPOKE TO ROSA FROM [facility]. PER HER REPORT HAS ALREADY BEEN GIVEN,TRANSPORTATION IS HERE FOR [facility], REPORT GIVEN TO THE gas prover.
== END 2019-03-07 21:00 | disposition home or self-care (01) ==
LOC: ER 13:02
DX: E11.621 Type 2 diabetes mellitus with foot ulcer (principal); I10 Essential (primary) hypertension; Z59.0 Homelessness; Z79.84 Long term (current) use of oral hypoglycemic drugs; Z79.899 Other long term (current) drug therapy
CPT/HCPCS: 36415; 71045; 73600 ×2; 80048; 80076; 81001; 83605; 84484; 85025; 85730; 87040 ×2; 87081; 87086; 93005; 96365; 96368; 96375; 99284; J2543; J3370; J3490; J7030; J7060 ×2; 81000-TC

== ENCOUNTER 2019-07-05 01:43 | Inpatient (IN) | payer OTHER ==
[~2019-07-05] VITALS: Ht 172.7 cm; Wt 68.5 kg
[2019-07-05] MEDS ORDERED: HYDR-4076 PO (04:56)
[2019-07-05] MEDS ORDERED: GABA600T12 PO (04:56)
--- NOTE | 2019-07-05 05:58 | NUR ---
RN MS ADMITTING NOTES RECEIVED PT FROM [facility]. PT AWAKE ALERT ORIENTED X4, BREATHING EVEN AND UNLABORED ON ROOM AIR .NO COMPLAINT OF PAIN OR DISCOMFORT AT THIS TIME.IV ACCESS ON THE R AC20G, RFA 20G PATENT AND FLUSHING. PICTURES TAKES, MALONE IN PLACE, RECTAL TUBE IN PLACE. BED IN LOWEST LOCKED POSITION, CALL LIGHT WITHIN REACH AT ALL TIME, WILL ENDORSE TO DAY NURSE FOR IVELISSE
[2019-07-05 06:10] VITALS: BP 153/89
[2019-07-05] MEDS ORDERED: ZOLPIDEM TARTRATE 5 MG TABLET PO PRN (06:30)
[2019-07-05] MEDS ORDERED: MAG HYDROX/AL HYDROX/SIMETH 30 ML UDC PO PRN (06:30)
[2019-07-05] MEDS ORDERED: ONDANSETRON HCL/PF 4 MG/2 ML VIAL IVP PRN (06:30)
[2019-07-05] MEDS ORDERED: Z GUARD REMEDY 2 OZ OINT TP PRN (06:30)
[2019-07-05] MEDS ORDERED: ACETAMINOPHEN 325 MG TABLET PO PRN (06:30)
[2019-07-05] MEDS: IV NS 0.9% 1,000 ML IV SCH ×2 (06:43→15:31)
[2019-07-05 06:44] VITALS: BP 153/89
[2019-07-05] MEDS ORDERED: METFORMIN 500 MG TABLET PO SCH (08:00)
--- NOTE | 2019-07-05 08:00 | NUR ---
RECEIVED PATIENT IN SLEEPING AROUSES TO VERBAL , VITAL SIGNS TAKEN AND RECORDED , PT REFUSED FULL ASSESSMENT AND BLOOD DRAW FROM FORM BLOCK MAKER , THIS AM , IV FLUID OF NS INFUSING AT 150CC/HR , PT HAS RECTAL TUBE NO STOOL OBSERVED MALONE BAG WITH SCANT URINE , SR X2 UP CALL LIGHT WITHIN REACH
[2019-07-05] MEDS: LISINOPRIL (20MG) 20 MG TABLET PO SCH (09:07)
[2019-07-05] MEDS: GABAPENTIN 300 MG CAPSULE PO SCH ×3 (09:07→18:45)
[2019-07-05] MEDS: FERROUS SULFATE (325 MG) 325 MG/TAB TABLET PO SCH (09:08)
[2019-07-05] MEDS: hydrALAZINE HCL 25 MG TABLET PO SCH ×3 (09:08→18:45)
[2019-07-05] MEDS: METRONIDAZOLE 500MG/ NS 100ML 500 MG in PREMIX 1 EA IV SCH ×3 (09:22→20:06)
[2019-07-05] MEDS: VANCOMYCIN HCL 125 MG/2.5 ML ORAL.SUSP PO SCH ×4 (09:23→23:14)
[2019-07-05] MEDS ORDERED: DEXTROSE 50%-WATER 50 ML DISP.SYRIN IV PRN (11:00)
[2019-07-05 11:28] LABS: BASOPHILS % (AUTO) 0.5 % (0.0-2.0); EOSINOPHILS % (AUTO) 3.4 % (0.0-6.0); HEMATOCRIT 25 % (39-51); LYMPHOCYTES # (AUTO) 1.1 /CMM (0.8-4.8); LYMPHOCYTES % (AUTO) 19.7 % (20.0-44.0); MEAN CORPUSCULAR HGB CONC 32 g/dl (31.0-36.0); MEAN CORPUSCULAR VOLUME 83 fL (80-96); MONOCYTES # (AUTO) 0.4 /CMM (0.1-1.30); MONOCYTES % (AUTO) 7.2 % (2.0-12.0); NEUTROPHILS # (AUTO) 3.9 /CMM (1.8-8.9); NEUTROPHILS % (AUTO) 69.2 % (43.0-81.0); PLATELET COUNT (AUTO) 356 /CMM (150-450); RED BLOOD CELL COUNT(AUTO) 3.03 MIL/uL (4.5-6.0); WHITE BLOOD COUNT (AUTO) 5.7 K/uL (4.3-11.0)
[2019-07-05 11:41] LABS: CALCIUM, SERUM 8.4 mg/dL (8.5-10.1); CREATININE 1.2 mg/dL (0.6-1.3); MAGNESIUM 1.7 mg/dL (1.8-2.4); PHOSPHORUS 3.5 mg/dL (2.5-4.9); POTASSIUM 4.1 mmol/L (3.5-5.1)
[2019-07-05] MEDS: BLOOD SUGAR DIAGNOSTIC 1 EACH STRIP IN SCH ×3 (12:00→22:14)
--- NOTE | 2019-07-05 12:19 | NUR ---
PATIENT REFUSED ACCU CHECK , TO AWARE
--- NOTE | 2019-07-05 12:24 | NUR ---
MONICA IVPB NOT GIVEN AT 1300 PT GOT FIRST DOSE 2HOURS AGO DUE MEDICATIONS NOT AVAIABLE FROM PHARMACY
--- NOTE | 2019-07-05 12:44 | NUR ---
Social service consult requested by Dr. Richards for homelessness. Pt. is a 64 year old male who was a direct admit from [facility]. Pt. was admitted to [facility] for possible CDIFF. SW met with pt. bedside. Pt. is alert and oriented x 3. Pt. is hostile and defensive toward SW when SW entered the room. Pt. initially stated, " why did they bring him here?" SW informed pt. he was a direct admit from [facility]. SW then asked pt. if he is homeless? Pt. refused to answer and did not participate any further with the assessment. SW to try again at a later time.
[2019-07-05 16:00] VITALS: BP 155/78
[2019-07-05] MEDS: HYDROCODONE/APAP 10/325MG 1 EA TABLET PO PRN (18:51)
--- NOTE | 2019-07-05 19:17 | NUR ---
RN MS OPENING NOTES RECEIVED PT IN BED AWAKE ALERT ORIENTED X4, BREATHING EVEN AND UNLABORED ON ROOM AIR .NO COMPLAINT OF PAIN OR DISCOMFORT AT THIS TIME.IV ACCESS ON THE R AC20G, RFA 20G, R UPPER ARM MIDLINE IN PLACE, NS @150ML/HR . PICTURES TAKES, MALONE IN PLACE, RECTAL TUBE IN PLACE. BED IN LOWEST LOCKED POSITION, CALL LIGHT WITHIN REACH AT ALL TIME, WILL CONTINUE TO MONITOR FREQUENTLY.
[2019-07-05 20:26] VITALS: BP 161/82
[2019-07-05 20:48] VITALS: BP 161/82
[2019-07-05] MEDS: HYDROGEL DRESSING 90 GM TUBE TP SCH (22:15)
[2019-07-06] MEDS: IV NS 0.9% 1,000 ML IV SCH (01:45)
--- NOTE | 2019-07-06 06:06 | NUR ---
RN MS CLOSING NOTES PT REMAINS IN BED AWAKE ALERT ORIENTED X4, BREATHING EVEN AND UNLABORED ON ROOM AIR .NO COMPLAINT OF PAIN OR DISCOMFORT AT THIS TIME.IV ACCESS ON THE R AC20G, RFA 20G, R UPPER ARM MIDLINE IN PLACE, NS @150ML/HR . PICTURES TAKES, MALONE IN PLACE, RECTAL TUBE IN PLACE. BED IN LOWEST LOCKED POSITION, CALL LIGHT WITHIN REACH AT ALL TIME, ENDORSE TO DAY NURSE FOR IVELISSE
[2019-07-06] MEDS: BLOOD SUGAR DIAGNOSTIC 1 EACH STRIP IN SCH ×5 (06:31→22:10)
[2019-07-06 07:12] LABS: BASOPHILS % (AUTO) 1.1 % (0.0-2.0); HEMATOCRIT 22 % (39-51); LYMPHOCYTES % (AUTO) 31.9 % (20.0-44.0); MEAN CORPUSCULAR HGB CONC 32 g/dl (31.0-36.0); MEAN CORPUSCULAR VOLUME 83 fL (80-96); MONOCYTES # (AUTO) 0.3 /CMM (0.1-1.30); MONOCYTES % (AUTO) 8.6 % (2.0-12.0); NEUTROPHILS # (AUTO) 1.8 /CMM (1.8-8.9); NEUTROPHILS % (AUTO) 53.4 % (43.0-81.0); PLATELET COUNT (AUTO) 312 /CMM (150-450); RED BLOOD CELL COUNT(AUTO) 2.61 MIL/uL (4.5-6.0); WHITE BLOOD COUNT (AUTO) 3.3 K/uL (4.3-11.0)
--- NOTE | 2019-07-06 07:15 | NUR ---
MS RN NOTES RECEIVED PATIENT IN BED, ALERT AND AWAKE, ORIENTED X4 HOB ELEVATED. NO SOB. DENIES ANY C/O PAIN NOR DISCOMFORT. RISA MIDLINE INTACT AND PATENT INFUSING NS @ 100ML/HR AMRIT WELL. BED IN LOWEST POSITION, LOCKED. BED SIDERAILS UP X2. CALL LIGHT WITHIN REACH.
[2019-07-06 07:21] LABS: CALCIUM, SERUM 8.3 mg/dL (8.5-10.1); CREATININE 1.2 mg/dL (0.6-1.3); POTASSIUM 4.2 mmol/L (3.5-5.1)
[2019-07-06 07:36] LABS: HEMOGLOBIN 6.9 g/dL (13.5-17.5)
--- NOTE | 2019-07-06 07:37 | NUR ---
WOUND CARE CONSULT WOUND CARE RECEIVED CONSULT FOR MULTIPLE WOUNDS POA. WOUND CARE WILL DEFER CONSULT AND ALL TREATMENT PLANS TO PLASTIC SURGICAL TEAM WHO ARE CURRENTLY FOLLOWING THIS PATIENT. PATIENT WITH ADRIANNA AT 11, ALL PRESSURE ULCER PREVENTION MEASURES ARE NOTED TO BE IN PLACE AT THIS TIME. WILL SEE PRN.
--- NOTE | 2019-07-06 07:40 | NUR ---
MS RN NOTES RELAYED TO DR. LYNN RE: HGB 6.9
[2019-07-06 08:00] VITALS: BP 173/89
--- NOTE | 2019-07-06 08:33 | NUR ---
MS RN NOTES PATIENT REFUSED BLOOD TRANSFUSION DESPITE OF RISKS AND BENEFITS EXPLAINED. DR. LYNN AT BEDSIDE AWARE, DESPITE EXPLANATIONS AND EDUCATION OF DR. LYNN GIVEN TO PATIENT
[2019-07-06] MEDS: FERROUS SULFATE (325 MG) 325 MG/TAB TABLET PO SCH (09:53)
[2019-07-06] MEDS: GABAPENTIN 300 MG CAPSULE PO SCH ×3 (09:53→17:44)
[2019-07-06] MEDS: hydrALAZINE HCL 25 MG TABLET PO SCH ×3 (09:53→17:45)
[2019-07-06] MEDS: LISINOPRIL (20MG) 20 MG TABLET PO SCH (09:54)
[2019-07-06] MEDS: HYDROGEL DRESSING 90 GM TUBE TP SCH (09:54)
[2019-07-06] MEDS: METRONIDAZOLE 500MG/ NS 100ML 500 MG in PREMIX 1 EA IV SCH ×2 (12:40→20:58)
[2019-07-06] MEDS: VANCOMYCIN HCL 125 MG/2.5 ML ORAL.SUSP PO SCH ×3 (12:43→23:09)
[2019-07-06] MEDS: INSULIN REGULAR, HUMAN 100 UNIT/ML 3 ML VIAL SQ PRN ×2 (12:52→22:10)
--- NOTE | 2019-07-06 12:53 | NUR ---
MS RN NOTES PATIENT REFUSED INSULIN, BS 134MG/DL DESPITE OF RISKS AND BENEFITS EXPLAINED.
[2019-07-06] MEDS: IV NS 0.9% 1,000 ML IV PRN (12:58)
[2019-07-06 16:00] VITALS: BP 165/90
--- NOTE | 2019-07-06 16:03 | NUR ---
SW attempted to meet with pt. again for a social service consult. However, pt. declined again and told [facility] Card, " It's not going to returned case inspector right, if I speak to the SW."
--- NOTE | 2019-07-06 17:30 | NUR ---
MS RN NOTE PATIENT ASLEEP, TRIED TO WAKE UP FOR DINNER BUT REMAINED ASLEEP.
[2019-07-06] MEDS: HYDROCODONE/APAP 5/325MG 1 EACH TABLET PO PRN (17:45)
--- NOTE | 2019-07-06 17:45 | NUR ---
MS RN NOTE PATIENT REFUSED BS CHECK PRIOR TO DINNER. PATIENT CHANGED HIS MIND AND WANTED NORCO 10/325 MG INSTEAD OF NORCO 5/325MG.
[2019-07-06] MEDS: HYDROCODONE/APAP 10/325MG 1 EA TABLET PO PRN (18:26)
--- NOTE | 2019-07-06 19:06 | NUR ---
MS RN CLOSING NOTES PATIENT IN BED, ALERT AND AWAKE, ORIENTED X4. HOB ELEVATED. NO SOB. DENIES ANY C/O PAIN NOR DISCOMFORT. RISA MIDLINE INTACT AND PATENT INFUSING NS @ 100ML/HR AMRIT WELL. PATIENT NON-COMPLIANT WITH CARE ALL THROUGHOUT THE SHIFT DESPITE OF EXPLANATIONS OF RISKS AND BENEFITS. PATIENT REFUSED WOUND CARE DURING THE SHIFT. BED IN LOWEST POSITION, LOCKED. BED SIDERAILS UP X2. CALL LIGHT WITHIN REACH.
--- NOTE | 2019-07-06 19:28 | NUR ---
MS RN NOTES RELAYED TO DR. LYNN REGARDING BP 178/85 WITH N.O. NOTED AND CARRIED OUT FOR CLONIDINE 0.1 MG FOR SBP > 160 PRN Q HR. ENDORSED TO NIGHT NURSECUONG.
[2019-07-06 20:00] VITALS: BP 170/88
[2019-07-06 20:23] VITALS: BP 170/88
[2019-07-06] MEDS: CLONIDINE HCL 0.1 MG TABLET PO PRN (20:58)
--- NOTE | 2019-07-06 21:07 | NUR ---
MS/RN NOTES PT NOTED WITH ELEVATED BP 170/88, HR 81. AGREED TO TAKE CLONIDINE 0.1MG PO PRN ORDERED PER PARAMETERS. DOES NOT WANT BLOOD SUGAR CHECKED AT THIS TIME. ASKED THAT I COME BACK AT 2200.
--- NOTE | 2019-07-07 01:06 | NUR ---
MS/RN NOTES PT ROUNDING PERFORMED. PT ASLEEP, BREATHING EVEN AND UNLABORED. IN NO ACUTE DISTRESS. WILL CONTINUE TO MONITOR
[2019-07-07] MEDS: IV NS 0.9% 1,000 ML IV PRN (04:15)
[2019-07-07] MEDS: METRONIDAZOLE 500MG/ NS 100ML 500 MG in PREMIX 1 EA IV SCH ×2 (04:16→13:33)
--- NOTE | 2019-07-07 06:25 | NUR ---
MS/RN NOTES PT REFUSED ACCUCHECK AND VANCOCIN THIS MORNING. HE TOLD ME "LATER". WHEN ASKING IF I COULD COME BACK AROUND 0700 PT RAISED HIS VOICE AND SAID "LATER!". PT PROCEEDED TO IGNORE ME WHEN ASKING WHAT TIME HE WANTED ME TO COME BACK.
--- NOTE | 2019-07-07 06:42 | NUR ---
MS/RN CLOSING NOTES PT ASLEEP, RESPONSIVE TO NAME. A/OX3. ON ROOM AIR, BREATHING EVEN AND UNLABORED. DENIES SOB AND PAIN AT THIS TIME. RISA MIDLINE PATENT AND INTACT RUNNING IVF ORDERED. REFUSED TURNING/REPOSITIONING Q2H, WOUND CARE, CHECKING PATENCY OF RECTAL TUBE, AM ACCUCHECK AND VANCOCIN. SLEPT WELL DURING SHIFT. NO SIGNIFICANT CHANGES OVERNIGHT. BED IN LOW/LOCKED POSITION WITH CALL LIGHT IN REACH. HOB ELEVATED. BILAT. UPPER SIDE RAILS IN PLACE. ISOLATION PRECAUTIONS IMPLEMENTED. WILL ENDORSE TO ONCOMING SHIFT IVELISSE.
--- NOTE | 2019-07-07 07:10 | NUR ---
MS RN OPENING NOTES RECEIVED PATIENT IN BED ALERT AND AWAKE ORIENTED X4. HOB ELEVATED. DENIES ANY C/O PAIN NOR DISCOMFORT AT THIS TIME. RECTAL TUBE IN PLACE. F/C INTACT DRAINING YELLOW COLORED URINE. ON CONTACT ISOLATION. RISA MIDLINE INTACT AND PATENT INFUSING NS @ 100M/HR AMRIT WELL. BED IN LOWEST POSITION, LOCKED. CALL LIGHT WITHIN REACH.
[2019-07-07] MEDS: VANCOMYCIN HCL 125 MG/2.5 ML ORAL.SUSP PO SCH ×4 (07:15→23:16)
[2019-07-07] MEDS: BLOOD SUGAR DIAGNOSTIC 1 EACH STRIP IN SCH ×4 (07:36→22:24)
[2019-07-07 08:00] VITALS: BP 179/96
[2019-07-07] MEDS: GABAPENTIN 300 MG CAPSULE PO SCH ×3 (08:15→16:29)
[2019-07-07] MEDS: HYDROCODONE/APAP 10/325MG 1 EA TABLET PO PRN ×2 (08:17→14:43)
[2019-07-07] MEDS: LISINOPRIL (20MG) 20 MG TABLET PO SCH (08:20)
[2019-07-07] MEDS: hydrALAZINE HCL 25 MG TABLET PO SCH ×3 (08:20→16:29)
[2019-07-07] MEDS: FERROUS SULFATE (325 MG) 325 MG/TAB TABLET PO SCH (08:20)
--- NOTE | 2019-07-07 08:20 | NUR ---
MS RN NOTES PATIENT WITH BP 179/76. DR. LYNN AWARE. AM BP MEDS GIVEN.
[2019-07-07] MEDS: INSULIN REGULAR, HUMAN 100 UNIT/ML 3 ML VIAL SQ PRN (08:21)
[2019-07-07] MEDS: HYDROGEL DRESSING 90 GM TUBE TP SCH (09:00)
--- NOTE | 2019-07-07 09:20 | NUR ---
MS RN NOTES BP RECHECKED, 159/90. RESTING COMFORTABLY IN BED.
--- NOTE | 2019-07-07 10:15 | NUR ---
MS RN NOTES PATIENT YELLED FOR NURSE, WENT INTO PATIENT'S ROOM. PATIENT WANTED BASIN OF WATER TO BE THROWN AWAY. OBSERVED PATIENT OPENING PLASTIC BAG WITH PATIENT'S CLOTHING INSIDE BAG. PER PATIENT IT WAS HIS PANTS/SHORTS THAT [employer] HAD CUT BECAUSE IT WAS SOILED WITH BM. INFORMED PATIENT THAT GOWN AND BED SHEETS ARE SOILED AND DIRTY FROM THE CLOTHING HE HAD TAKEN OUT OF THE BAG AND RECOMMENDING PUTTING NEW LINENS. PATIENT REFUSED DESPITE OF EDUCATION, RISKS AND BENEFITS EXPLAINED. WILL ENCOURAGE PATIENT AGAIN.
--- NOTE | 2019-07-07 10:40 | NUR ---
MS RN NOTES CECILY MINOR CHANGED BED LINENS AND ASSISTED WITH PATIENT'S ADL'S.
[2019-07-07 12:00] VITALS: BP 163/100
--- NOTE | 2019-07-07 15:30 | NUR ---
MS RN NOTES REQUESTED MEDICAL RECORD FROM [employer] [facility] FOR RESULTS OF C-DIFF VUA FAX.
[2019-07-07 15:59] VITALS: BP 167/109
[2019-07-07] MEDS: CLONIDINE HCL 0.1 MG TABLET PO PRN ×2 (16:28→20:43)
--- NOTE | 2019-07-07 16:28 | NUR ---
MS RN NOTES NOTED B/P OF 167/109, DISCUSSED WITH PATIENT REGARDING MANUAL BP CHECKED PATIENT REFUSED AND STARTED YELLING. PATIENT SCHEDULED FOR APRESOLINE AND CLONIDINE PRN, PATIENT REFUSED TO TAKE MEDICATION AND WANTED IV MEDICATION FOR BLOOD PRESSURE INSTEAD AND YELLED, "THOSE DON'T WORK. I WANT IV." EDUCATION PROVIDED TO PATIENT BUT REFUSED MEDICATION DESPITE OF EDUCATION AND EXPLANATION OF RISKS AND BENEFITS EXPLAINED. MARISA AWARE.
--- NOTE | 2019-07-07 16:45 | NUR ---
MS RN NOTES SPOJE TO PATIENT AGAIN AND REQUESTED TO TAKE MANUAL BP CUFF, PATIENT REFUSED AND TOOK APRESOLINE AND CLONIDINE INSTEAD.
--- NOTE | 2019-07-07 17:15 | NUR ---
MS RN NOTES SPOKE TO PATIENT REGARDING BLOOD PRESSURE MONITORING. PATIENT REFUSED. PATIENT IN NO APPARENT DISTRESS AT THIS TIME.
--- NOTE | 2019-07-07 17:45 | NUR ---
MS RN NOTES PATIENR REFUSED BP CHECK AND DOES NOT WANT IT TO BE CHECKED AT ALL.
--- NOTE | 2019-07-07 18:50 | NUR ---
MS RN CLOSING NOTES PATIENT IN BED ALERT AND AWAKE ORIENTED X4. RESTING COMFORTABLY IN BED. HOB ELEVATED. DENIES ANY C/O PAIN NOR DISCOMFORT AT THIS TIME. RECTAL TUBE IN PLACE, NO BM OBSERVED. F/C INTACT DRAINING YELLOW COLORED URINE VIA BEDSIDE VIA GRAVITY. ON CONTACT ISOLATION PRECAUTIONS. IRSA MIDLINE INTACT AND PATENT INFUSING NS @ 100ML/HR AMRIT WELL. PATIENT NON-COMPLIANT WITH CARE DESPITE OF EXPLANATIONS OF RISKS AND BENEFITS AND EDUCATION GIVEN. MARISA, INTELLIGENCE SUPPORT OFFICER, CHARGE NURSE AND ASSIGNED NURSE WAS AT BEDSIDE WHEN MARISA SPOKE TO PATIENT ABOUT SNF PLACEMENT AND PATIENT AGREED.MARISA AWARE OF PATIENT'S NON COMPLIANCE WITH CARE AND TREATMENT REGIMEN. WOUND CARE DONE BY RENZO SANTIAGO, PATIENT AMRIT WELL. PATIENT STILL REFUSED TO HAVE BP CHECK AND WITH EPISODE OF REFUSAL OF BS CHECK AND INSULIN ORDERED. BED IN LOWEST POSITION, LOCKED. CALL LIGHT WITHIN REACH. IN NO APPARENT DISTRESS. ENDORSED TO ONCOMING NURSE.
--- NOTE | 2019-07-07 19:15 | NUR ---
RN OPEN NOTES RECEIVED PATIENT AWAKE IN BED. A/OX4. NO SIGNS OF DISTRESS OR DISCOMFORT. BREATHING EVEN AND UNLABORED. DENIES ANY PAIN AT THIS TIME. HAS RISA MIDLINE WITH NS INFUSING, PATENT AND INTACT, NO SIGNS OF REDNESS OR INFILTRATION. HAS RECTAL TUBE INTACT WITH NO STOOL NOTED AT THIS TIME. HAS F/C INTACT DRAINING CLEAR YELLOW FLUID. BED IN LOW LOCKED POSITION WITH SIDE RAILS X2. CALL LIGHT WITHIN REACH. WILL CONTINUE TO MONITOR.
[2019-07-07 20:03] VITALS: BP 188/93
--- NOTE | 2019-07-07 20:30 | NUR ---
RN NOTES NOTIFIED AURORA MITCHELL THAT PATIENT PRESENTS WITH BP 188/93 P 81. NEW ORDER GIVEN FOR CLONIDINE .2MG Q6H PO PRN FOR SBP >160, WITH OK TO GIVE FIRST DOSE NOW. WILL CARRYOUT ORDERS AND CONTINUE TO MONITOR.
[2019-07-08] MEDS: VANCOMYCIN HCL 125 MG/2.5 ML ORAL.SUSP PO SCH ×5 (06:00→23:39)
[2019-07-08] MEDS: BLOOD SUGAR DIAGNOSTIC 1 EACH STRIP IN SCH ×4 (06:35→22:33)
--- NOTE | 2019-07-08 06:35 | NUR ---
RN NOTES PATIENT REFUSED VANCOCIN X3. RISK AND BENEFITS EXPLAINED AND PATIENT VERBALIZED UNDERSTANDING. WILL CONTINUE TO MONITOR.
--- NOTE | 2019-07-08 06:47 | NUR ---
RN CLOSING NOTES PATIENT RESTING IN BED, EASILY AROUSABLE. A/OX4. NO SIGNS OF DISTRESS OR DISCOMFORT. BREATHING EVEN AND UNLABORED. DENIES ANY PAIN AT THIS TIME. HAS RISA MIDLINE WITH NS INFUSING, PATENT AND INTACT, NO SIGNS OF REDNESS OR INFILTRATION. HAS RECTAL TUBE INTACT WITH NO STOOL NOTED THROUGH OUT SHIFT. HAS F/C INTACT DRAINING CLEAR YELLOW FLUID. ALL NEEDS MET. NO SIGNIFICANT CHANGES THROUGH THE NIGHT. BED IN LOW LOCKED POSITION WITH SIDE RAILS X2. CALL LIGHT WITHIN REACH. WILL ENDORSE TO AM SHIFT FOR IVELISSE.
--- NOTE | 2019-07-08 07:15 | NUR ---
MS RN NOTES PATIENT IN BED ALERT ORIENTED X 4. NO ACUTE DISTRESS NOTED. BREATHING UNLABORED. NO SOB NOTED. IV ACCESS PATENT AND INTACT, NO REDNESS OR SWELLING NOTED. SAFETY MEASURES IN PLACE. CALL LIGHT WITH IN REACH. WILL CONTINUE TO MONITOR ACCORDINGLY.
[2019-07-08 07:55] VITALS: BP 187/91
[2019-07-08] MEDS: LISINOPRIL (20MG) 20 MG TABLET PO SCH (08:29)
[2019-07-08] MEDS: hydrALAZINE HCL 25 MG TABLET PO SCH ×3 (08:29→16:51)
[2019-07-08] MEDS: GABAPENTIN 300 MG CAPSULE PO SCH ×3 (08:29→16:50)
[2019-07-08] MEDS: FERROUS SULFATE (325 MG) 325 MG/TAB TABLET PO SCH (08:29)
[2019-07-08] MEDS: HYDROGEL DRESSING 90 GM TUBE TP SCH (08:31)
--- NOTE | 2019-07-08 09:30 | NUR ---
MS RN NOTES PATIENT SEEN AND EVALUATED BY DR MARISA LYNN. AWARE OF ELEVATED BLOOD PRESSURE.
[2019-07-08] MEDS: IV NS 0.9% 1,000 ML IV PRN ×2 (10:14→20:26)
[2019-07-08 12:00] VITALS: BP 187/98
[2019-07-08] MEDS: INSULIN REGULAR, HUMAN 100 UNIT/ML 3 ML VIAL SQ PRN (12:13)
--- NOTE | 2019-07-08 12:14 | NUR ---
MS RN NOTES PATIENT REFUSED VANCOMYCIN PO AND INSULIN DESPITE OF EXPLANATION OF RISK AND BENEFITS.
[2019-07-08 16:00] VITALS: BP 161/79
--- NOTE | 2019-07-08 16:36 | NUR ---
MS RN NOTES RECEIVED NEW ORDER FROM DR MARISA LYNN TO DISCONTINUE RECTAL TUBE, NOTED AND CARRIED OUT.
--- NOTE | 2019-07-08 18:52 | NUR ---
MS RN NOTES PATIENT IN BED ALERT ORIENTED X 4. NO ACUTE DISTRESS NOTED. BREATHING UNLABORED. IV ACCESS PATENT AND INTACT, NO REDNESS OR SWELLING NOTED. MOST DUE MEDICATIONS GIVEN, NO ASE NOTED. REFUSED SOME MEDICATIONS DESPITE OF EXPLANATION OF RISKS AND BENEFITS. NEEDS ATTENDED AND ANTICIPATED. KEPT CLEAN, DRY AND COMFORTABLE. ASSISTED IN TURNING AND REPOSITIONING PER PROTOCOL. SAFETY MEASURES IN PLACE. CALL LIGHT WITH IN REACH. WILL ENDORSE TO NIGHT NURSE FOR CONTINUITY OF CARE.
--- NOTE | 2019-07-08 19:00 | NUR ---
MS RN NOTE RECEIVED PT IN STABLE CONDITION A/O, CURRENT IN BED WATCHING TV. NO SIGNS OF SOB OR DISTRESS, NO C/O PAIN. MALONE IN PLACE WITH ADEQUATE URINE DRAINING. RISA PICC LINE IN PLACE WITH IVF INFUSING, TOLERATING WELL. ALL CURRENT NEEDS MET. BED LOW, LOCKED, UPPER RAILS UP, ISOLATION PRECAUTIONS IN PLACE, AND CALL LIGHT WITHIN REACH. WILL CONT. TO MONITOR.
--- NOTE | 2019-07-08 19:30 | NUR ---
MS RN NOTE RECTAL TUBE REMOVED, PT TOLERATING WELL.
[2019-07-08 20:00] VITALS: BP 181/97
--- NOTE | 2019-07-08 21:21 | NUR ---
MS RN NOTE PRN CATAPRES 0.2 MG GIVEN FOR BP OF 181/73. WILL CONT TO MONITOR.
--- NOTE | 2019-07-08 23:41 | NUR ---
MS RN NOTE 0000 DOSE OF PO VANOMYCIN REFUSED BY PT. RISKS AND BENEFITS MADE AWARE WITH VERBALIZATION OF UNDERSTANDING. WILL CONTINUE TO MONITOR.
[2019-07-09] MEDS: IV NS 0.9% 1,000 ML IV PRN ×2 (05:25→15:40)
[2019-07-09] MEDS: VANCOMYCIN HCL 125 MG/2.5 ML ORAL.SUSP PO SCH ×4 (05:25→23:43)
--- NOTE | 2019-07-09 06:13 | NUR ---
MS RN NOTE PT REFUSING TO HAVE WOUND TX DONE. REFUSING TO BE CLEANED AND REFUSING FOR BEDDING TO BE CHANGED. NE (CHARGE NURSE) AWARE, SPOKE WITH PT. PT STILL REFUSING. RISKS AND BENEFITS MADE AWARE. PT ANSWER: I DON'T CARE, LEAVE THE ALONE.
--- NOTE | 2019-07-09 06:16 | NUR ---
MS RN NOTE PT IN STABLE CONDITION A/O X4, CURRENTLY RESTING IN BED. NO SIGNS OF SOB OR DISTRESS, NO C/O PAIN. MALONE IN PLACE WITH ADEQUATE URINE DRAINING. RISA PICC LINE IN PLACE WITH IVF INFUSING, TOLERATING WELL. ALL CURRENT NEEDS MET. BED LOW, LOCKED, UPPER RAILS UP, ISOLATION PRECAUTIONS IN PLACE, AND CALL LIGHT WITHIN REACH. WILL CONT. TO MONITOR AND ENDORSE TO NEXT SHIFT FOR IVELISSE.
[2019-07-09] MEDS: BLOOD SUGAR DIAGNOSTIC 1 EACH STRIP IN SCH ×4 (06:34→22:15)
--- NOTE | 2019-07-09 07:23 | NUR ---
RN MS OPENING NOTES Patient received on room air, no sob noted, patient denies pain at this time. Patient remains a/o x4. Bed at the lowest setting, call light within reach, side rails up x2. Patient refused AM labs per report.
[2019-07-09 08:00] VITALS: BP 190/98
[2019-07-09] MEDS: FERROUS SULFATE (325 MG) 325 MG/TAB TABLET PO SCH (09:17)
[2019-07-09] MEDS: LISINOPRIL (20MG) 20 MG TABLET PO SCH (09:17)
[2019-07-09] MEDS: GABAPENTIN 300 MG CAPSULE PO SCH ×3 (09:17→16:27)
[2019-07-09] MEDS: hydrALAZINE HCL 25 MG TABLET PO SCH ×3 (09:17→16:21)
[2019-07-09] MEDS: HYDROCODONE/APAP 10/325MG 1 EA TABLET PO PRN ×2 (09:18→16:27)
[2019-07-09] MEDS: HYDROGEL DRESSING 90 GM TUBE TP SCH (09:18)
--- NOTE | 2019-07-09 13:08 | NUR ---
RN MS NOTES Patient refused a manual blood pressure check after a BP reading of187/100 with a heart rate of 89. Patient refused BP x3. Patient refused BP meds at this time as well x3. Explained to the patient the benefits of keeping the blood pressure low. Charge nurse aware of patients refusal.
[2019-07-09 16:00] VITALS: BP 178/98
--- NOTE | 2019-07-09 16:00 | NUR ---
RN MS NOTES Patient's BP was around 178/98, Offered patient his BP meds but he refused x3. Explained to him the benefits of keeping his blood pressure under control. Patient stated he does not want any blood pressure medications.
--- NOTE | 2019-07-09 16:51 | NUR ---
RN MS NOTES Patient asked for 4 rails to be up. Told him it might be difficult for him to leave in case he wanted to. He stated he was okay with this and it is his choice.
--- NOTE | 2019-07-09 18:18 | NUR ---
RN MS CLOSING NOTES Patient remains on room air, no sob noted, patient refused his blood pressure medications even though his BP was high. Explained to the patient the benefits of taking his blood pressure medications and he stated that he does not want any blood pressure medications. Side rails up x4 per patient request, told the patient it might not be safe for him if it's 4 side rails up, he stated that this is what he wanted. Right upper arm midline NS @ 100 mL per hour patent. Patient refused AM labs. BS has been stable and in normal range, no insulin given. Patient refused vanco PO. Bed at the lowest setting, call light within reach, side rails up x4 per patient request. Will give report to DELON MARR for IVELISSE bedside.
--- NOTE | 2019-07-09 19:10 | NUR ---
MS RN NOTE RECEIVED PT IN STABLE CONDITION A/O X4, CURRENTLY SLEEPING IN BED. NO SIGNS OF SOB OR DISTRESS, NO INDICATIONS OF PAIN. R UA MIDLINE IN PLACE. MALONE IN PLACE WITH ADEQUATE URINE DRAINING. ALL CURRENT NEEDS ATTENDED TO. BED LOW, LOCKED, RAILS UP, AND CALL LIGHT WITHIN REACH. WILL CONT. TO MONITOR.
[2019-07-09 20:00] VITALS: BP 191/104
[2019-07-09] MEDS: CLONIDINE HCL 0.1 MG TABLET PO PRN (20:17)
--- NOTE | 2019-07-09 20:20 | NUR ---
MS RN NOTE PRN CATAPRES 0.2 MG GIVEN FOR BP 191/104. PT REMAINS IN STABLE CONDITION, WILL CONT. TO MONITOR.
--- NOTE | 2019-07-09 22:16 | NUR ---
MS RN NOTE PT REFUSING RECHECK OF BLOOD PRESSURE AFTER CATAPRES ADMINISTRATION. PT NOTED WITH BLOOD SUGAR OF 145 REFUSING INSULIN COVERAGE. PT NOTIFIED OF HOSPITAL POLICY FOR WOUND DOCUMENTATION, REFUSING TO HAVE DOCUMENTATION DONE. RISKS AND BENEFIT MADE AWARE WITH VERBALIZATION OF UNDERSTANDING. WILL CONTINUE TO MONITOR.
--- NOTE | 2019-07-09 23:43 | NUR ---
MS RN NOTE PT REFUSED PO VANCOCIN 125 MG. RISKS AND BENEFITS MADE AWARE.
[2019-07-10] MEDS: VANCOMYCIN HCL 125 MG/2.5 ML ORAL.SUSP PO SCH ×3 (06:00→17:24)
--- NOTE | 2019-07-10 06:03 | NUR ---
MS RN NOTE PT REFUSED 0600 DOSE OF PO VANCOCIN 125 MG. RISKS AND BENEFITS MADE AWARE.
--- NOTE | 2019-07-10 06:12 | NUR ---
MS RN NOTE PT IN STABLE CONDITION A/O X4, CURRENTLY AWAKE. NO SIGNS OF SOB OR DISTRESS, NO INDICATIONS OF PAIN. R UA MIDLINE IN PLACE. MALONE IN PLACE WITH ADEQUATE URINE DRAINING. ALL CURRENT NEEDS ATTENDED TO. BED LOW, LOCKED, RAILS UP, AND CALL LIGHT WITHIN REACH. WILL CONT. TO MONITOR AND ENDORSE TO NEXT SHIFT FOR IVELISSE.
[2019-07-10] MEDS: BLOOD SUGAR DIAGNOSTIC 1 EACH STRIP IN SCH ×4 (06:38→22:22)
--- NOTE | 2019-07-10 07:36 | NUR ---
RN MS OPENING NOTES Patient received on room air, no sob noted, patient denies pain at this time. Patient remains with Cramer and is draining. Right upper arm midline NS @ 100 mL per hour. Bed at the lowest setting, call light within reach.
[2019-07-10 08:00] VITALS: BP 185/96
[2019-07-10] MEDS: FERROUS SULFATE (325 MG) 325 MG/TAB TABLET PO SCH (08:24)
[2019-07-10] MEDS: LISINOPRIL (20MG) 20 MG TABLET PO SCH (08:24)
[2019-07-10] MEDS: GABAPENTIN 300 MG CAPSULE PO SCH ×3 (08:24→16:18)
[2019-07-10] MEDS: HYDROCODONE/APAP 10/325MG 1 EA TABLET PO PRN ×2 (08:25→16:17)
[2019-07-10] MEDS: HYDROGEL DRESSING 90 GM TUBE TP SCH (08:25)
[2019-07-10] MEDS: hydrALAZINE HCL 25 MG TABLET PO SCH ×3 (08:25→16:18)
--- NOTE | 2019-07-10 17:57 | NUR ---
RN MS NOTES CLOSING Patient remains on room air, no sob noted, patient denies pain at this time. Patient's Right upper arm midline remains patent at this time. Cramer remains draining. Patient's blood sugar stable all shift without the need for insulin. Patient refused vancomycin PO today. Bed at the lowest setting, call light within reach. Will give report to NOC RN for IVELISSE bedside.
--- NOTE | 2019-07-10 18:06 | NUR ---
RN NOTES Patient requests the side rails to be up x4. Explained to the patient the safety of having side rails up x3 but patient still wants all 4 to be raised.
--- NOTE | 2019-07-10 19:58 | NUR ---
RN MS OPENING NOTES RECEIVED PATIENT IN BED AWAKE, ALERT AND ORIENTED X4, VERBALLY RESPONSIVE, ABLE TO MAKE NEEDS KNOWN. WHEELCHAIR BOUND. BREATHING EVEN AND UNLABORED. NO SOB NOTED. TOLERATING ROOM AIR. DENIES PAIN OR DISCOMFORT. MIDLINE ON RIGHT UPPER ARM INTACT AND PATENT. SKIN DRY AND WARM TO TOUCH. AGREEABLE TO WOUND CARE ON BILATERAL BUTTOCKS, BUT DOES NOT WANT ANY CREAM/OINTMENT ON IT. JUST NS AND MEPILEX. ALL OTHER NEEDS ATTENDED TO. SAFETY MEASURES IN PLACE. REMAINS ON CONTACT ISOLATION FOR CDIFF. WILL CONTINUE TO MONITOR .
[2019-07-10 20:00] VITALS: BP 196/115
[2019-07-10] MEDS: CLONIDINE HCL 0.1 MG TABLET PO PRN (20:06)
--- NOTE | 2019-07-10 20:08 | NUR ---
RN MS NOTES PATIENT AGREED TO TAKE CLONIDINE FOR ELEVATED BLOOD PRESSURE 196/115. WILL CONTINUE TO MONITOR.
[2019-07-10] MEDS: INSULIN REGULAR, HUMAN 100 UNIT/ML 3 ML VIAL SQ PRN (22:22)
--- NOTE | 2019-07-10 22:27 | NUR ---
RN MS NOTES PATIENT AGREED TO HAVE BED BATH, AND WOUND CARE DONE (WITHOUT ANY CREAMS/OINTMENT).
--- NOTE | 2019-07-11 00:14 | NUR ---
RN MS NOTES PATIENT REFUSED 0000 SCHEDULED PO VANCOCIN. RISKS AND BENEFITS EXPLAINED BUT STILL REFUSED. PATIENT GETS AGITATED WHEN I CONTINUE TO INSIST. PATIENT ALSO REFUSED TO HAVE HIS BP TAKEN. JUST WANTS TO BE LEFT ALONE TO SLEEP. WILL CONTINUE TO MONITOR.
--- NOTE | 2019-07-11 04:00 | NUR ---
RN MS NOTES PATIENT REFUSED BP CHECK DUE TO CLONIDINE USE. EXPLAINED RISKS AND BENEFITS BUT STILL REFUSED. WANTS TO SLEEP.
[2019-07-11] MEDS: VANCOMYCIN HCL 125 MG/2.5 ML ORAL.SUSP PO SCH ×3 (06:00→12:00)
--- NOTE | 2019-07-11 06:00 | NUR ---
RN MS NOTES PATIENT REFUSED TO HAVE DRESSINGS CHECKED THIS AM. EXPLAINED TO PATIENT THE IMPORTANCE OF CHANGING SOILED DRESSINGS BUT STILL REFUSED.
--- NOTE | 2019-07-11 06:30 | NUR ---
RN MS NOTES BS 142. PATIENT REFUSED INSULIN. EXPLAINED RISKS AND BENEFITS BUT STILL REFUSED. WILL CONTINUE TO MONITOR.
--- NOTE | 2019-07-11 06:31 | NUR ---
RN MS NOTES PATIENT REFUSED BLOOD DRAW THIS AM. ATTEMPTED TO GET BLOOD FROM MIDLINE BUT THERE WAS NO BLOOD RETURN. ASKED IF PUMP MACHINE OPERATOR CAN TRY TO POKE HIM TO GET BLOOD BUT PATIENT REFUSED. ENCOURAGED MULTIPLE TIMES AND EXPLAINED RISKS AND BENEFITS BUT STILL REFUSED.
--- NOTE | 2019-07-11 06:31 | NUR ---
RN MS NOTES PATIENT REFUSED 0600 SCHEDULED PO VANCOCIN. RISKS AND BENEFITS EXPLAINED BUT STILL REFUSED. PATIENT ONLY SAYS "NO" AFTER BEING ASKED WHY. WILL CONTINUE TO MONITOR.
[2019-07-11] MEDS: INSULIN REGULAR, HUMAN 100 UNIT/ML 3 ML VIAL SQ PRN (06:35)
[2019-07-11] MEDS: BLOOD SUGAR DIAGNOSTIC 1 EACH STRIP IN SCH ×2 (06:35→12:00)
--- NOTE | 2019-07-11 07:39 | NUR ---
RN MS CLOSING NOTES PATIENT RESTING IN BED. NO ACUTE CHANGES THROUGHOUT SHIFT. BREATHING EVEN AND UNLABORED. NO SOB NOTED. TOLERATING ROOM AIR. DENIES PAIN OR DISCOMFORT. MIDLINE ON RIGHT UPPER ARM INTACT AND PATENT. ALL OTHER NEEDS ATTENDED TO. REFUSED TO HAVE DRESSINGS ASSESSED THIS AM. SAFETY MEASURES IN PLACE. REMAINS ON CONTACT ISOLATION FOR CDIFF. SIDERAILS X4 UP PER PATIENT'S REQUEST. WILL ENDORSE TO ONCOMING NURSE FOR IVELISSE..
--- NOTE | 2019-07-11 07:41 | NUR ---
MS RN OPENING NOTES Received Patient resting and asleep in bed. A/O x 4. VS stable with no acute distress. Breathing even and unlabored on room air with no respiratory distress. No signs and symptoms of pain at this time. RISA Midline clean, dry, intact and flushing well with NS running at 100ml/hr. Cramer in place and patent with clear yellow output noted. Isolation precautions in place. Safety precautions in place. Bed locked and set to lowest position with side rails x 4 up, per Patients request. Will continue to monitor.
[2019-07-11 08:13] VITALS: BP 200/100
[2019-07-11] MEDS: hydrALAZINE HCL 25 MG TABLET PO SCH ×2 (08:32→12:20)
[2019-07-11 08:33] VITALS: BP 200/100
[2019-07-11] MEDS: FERROUS SULFATE (325 MG) 325 MG/TAB TABLET PO SCH (08:33)
[2019-07-11] MEDS: LISINOPRIL (20MG) 20 MG TABLET PO SCH (08:33)
[2019-07-11] MEDS: GABAPENTIN 300 MG CAPSULE PO SCH ×2 (08:33→12:20)
[2019-07-11] MEDS: HYDROCODONE/APAP 10/325MG 1 EA TABLET PO PRN (08:38)
[2019-07-11] MEDS: HYDROGEL DRESSING 90 GM TUBE TP SCH (09:00)
--- NOTE | 2019-07-11 10:00 | NUR ---
MS RN NOTES Patient refused wound treatment. Patient stated, "I had it changed already!! I do not want you touching me!!" Explained risks of refusal. Patient verbalized understanding and restated that he did not want to be touched. Will continue to monitor.
--- NOTE | 2019-07-11 12:09 | NUR ---
MS RN NOTES Patient refusing all care. Patient refused medications, vital signs check, wound treatment, wound assessment pictures, lunch, accucheck, and help with transfers from bed to wheelchair. Patient asked for help with bed to wheelchair to transfer. Two CNAs came in to assist Patient but then Patient started yelling at CNAs and stated, "I do not need help!!" Patient stated that he wants to go AMA. Explained to Patient that he is to be discharged today and Case Management was preparing for SNF transfer. Patient still refused and yelled, "I WANT TO GO NOW!" Preparing AMA and discharge paperwork at this time. Will continue to monitor.
--- NOTE | 2019-07-11 13:44 | NUR ---
MS RN NOTES Patient refuses Bee Cath to be removed. Per Patient, "This is my bee! I keep this! Don't touch it!!!" Notified Garret ROUSTABOUT CREW LEADER. May discharge AMA with Bee, per Patients request.
[2019-07-11] MEDS: HYDROCODONE/APAP 5/325MG 1 EACH TABLET PO PRN (13:46)
--- NOTE | 2019-07-11 14:00 | NUR ---
MS RN AMA DISCHARGE NOTES Patient AMA discharge at this time. Patient strongly refused for SNF placement and stated, "I want to leave now!" Patient in stable condition. Patient refused vital signs to be taken. Patient refused wound tx. Patient stated 6/10 pain. Administered [place]field 5-325mg x 1 tab PO per Patients request. Medication reconciliation and discharge orders reviewed and explained to Patient. Patient verbalized understanding. All belongings with Patient. Patient strongly refused Bee Cath to be removed. Explained risks of refusal. Patient stated, "This is my bee! I keep this!!" Notified Garret CONTRACT SPECIALIST. Removed RISA Midline intact. Patient tolerated well. All belongings with Patient. Escorted Patient to the lobby for safety. Patient motivated for self-care. Addendum: 07/11/19 at 1938 by LUZ ELENA GONZALEZ RN Patient refused skin assessment wound pictures. Patient stated, "I already had the dressing changed! I don't need you to check it!! Don't touch me!!!"
== END 2019-07-11 14:45 | disposition left against medical advice (07) | DRG 248 ==
LOC: MED 04:37
PROVIDERS: ADMIT Nurse Practitioner Acute Care; ATTEND Nurse Practitioner Acute Care
PROC: 0JB90ZZ Excision of Buttock Subcutaneous Tissue and Fascia, Open Approach (ICD-10-PCS; principal; 2019-07-05)
PROC: 05H933Z Insertion of Infusion Device into Right Brachial Vein, Percutaneous Approach (ICD-10-PCS; principal; 2019-07-05)
DX: A04.72 Enterocolitis due to Clostridium difficile, not specified as recurrent (principal); N17.0 Acute kidney failure with tubular necrosis; L89.153 Pressure ulcer of sacral region, stage 3; E44.0 Moderate protein-calorie malnutrition; E11.40 Type 2 diabetes mellitus with diabetic neuropathy, unspecified; D68.59 Other primary thrombophilia; E11.621 Type 2 diabetes mellitus with foot ulcer; L89.323 Pressure ulcer of left buttock, stage 3; L89.313 Pressure ulcer of right buttock, stage 3; E11.622 Type 2 diabetes mellitus with other skin ulcer; E11.649 Type 2 diabetes mellitus with hypoglycemia without coma; G82.20 Paraplegia, unspecified; I10 Essential (primary) hypertension; Z74.09 Other reduced mobility; Z59.0 Homelessness; Z99.3 Dependence on wheelchair; Z91.19 Patient's noncompliance with other medical treatment and regimen; Z83.3 Family history of diabetes mellitus; L97.509 Non-pressure chronic ulcer of other part of unspecified foot with unspecified severity; D64.9 Anemia, unspecified; Z96.642 Presence of left artificial hip joint; Z79.84 Long term (current) use of oral hypoglycemic drugs; Z79.899 Other long term (current) drug therapy
CPT/HCPCS: 36415; 36569; 80048-TC; 80061-TC; 82962-TC; 83735-TC; 84100-TC; 85025-TC; 87081-TC; 97112-TC; 97530-TC; A4216; A6248; A6253; G0378; J1815; J3490; J7030

== ENCOUNTER 2019-07-12 12:33 | Emergency (ER) | payer OTHER ==
[~2019-07-12] VITALS: Ht 175.3 cm; Wt 65.8 kg
[~2019-07-12 12:33] MED LIST changes: +GABA600T12 PO; +HYDR-4076 PO
--- NOTE | 2019-07-12 12:55 | NUR ---
PATIENT [id number], DUE TO UNABLE TO TAKE CARE OF HIMSELF, LEFT AMA YESTERDAY. PATIENT NOTED WITH MALONE CATHETER IN PLACE. RESTING ON ER BED. WILL CONTINUE TO MONITOR
[2019-07-12] MEDS ORDERED: HYDROCODONE/APAP 5/325MG 1 EACH TABLET ONE (13:26)
[2019-07-12] MEDS ORDERED: VANCOMYCIN HCL 125 MG/2.5 ML ORAL.SUSP PO SCH (13:30)
[2019-07-12] MEDS ORDERED: HYDROCODONE/APAP 5/325MG 1 EACH TABLET PO ONE (13:30)
--- NOTE | 2019-07-12 13:35 | NUR ---
PATIENT REFUSED TO TAKE VANCOMYCIN PO. RISKS AND BENEFITS EXPLAINED BUT TO NO AVAIL. PATIENT STRONGLY REFUSED X 3. SREEDHAR MULLER MADE AWARE
--- NOTE | 2019-07-12 15:53 | NUR ---
Social service consult requested by Dr. Hall for homelessness and possible placement. Pt. is a 64 year old male who was was brought in to [facility] by rescue ambulance for unable to care for self. SW is familiar with pt. from previous admission. Pt. was uncooperative with SW during last admisison as well. Pt. went AMA from [facility] yesterday 07/11/19 and had refused placement. SW and rehabilitation case coordinator Ramya met with pt. bedside. Pt. appears disheveled and dirty. Pt. is hostile and uncooperative. Pt. is a paraplegic and need assistance with his ADLs. SW and rehabilitation case coordinator spoke with the pt. and offered snf placement in [facility] and [facility], however pt. refused placement and stated, " I do not want any placement, I am gonna walk right out the door". Pt. to be provided with manual wheelchair since pt's wheelchair was left behind by rescue ambulance. Dr. Hall and DELON Massey have been updated with aforementioned information.
[2019-07-12 17:41] VITALS: BP 140/90
--- NOTE | 2019-07-12 17:42 | NUR ---
Patient discharged in stable condition food, cloths and tap card provided, refused sherter resources. Written and verbal after care instructions given. Patient verbalizes understanding of instruction.
== END 2019-07-12 17:43 | disposition home or self-care (01) ==
LOC: ER 12:35
DX: L89.899 Pressure ulcer of other site, unspecified stage (principal); G82.20 Paraplegia, unspecified; E11.65 Type 2 diabetes mellitus with hyperglycemia; D64.9 Anemia, unspecified; I10 Essential (primary) hypertension; Z91.19 Patient's noncompliance with other medical treatment and regimen; Z59.0 Homelessness; Z86.19 Personal history of other infectious and parasitic diseases
CPT/HCPCS: 82962-TC

== ENCOUNTER 2019-08-28 10:45 | Emergency (ER) | payer OTHER ==
[~2019-08-28] VITALS: Ht 172.7 cm; Wt 58.5 kg
--- NOTE | 2019-08-28 10:59 | NUR ---
PATIENT [id number] [place] [address] FOR F/C CATH MALFUNCTION. REQUESTING NEW ONE. PATIENT A/O X 3. NO ACUTE DISTRESS. DENIES ANY PAIN OR DISCOMFORT. PATIENT LEGALLY BLIND.
--- NOTE | 2019-08-28 11:00 | NUR ---
NOTED WITH MALONE CATHETER IN PLACE BUT NO OUTPUT NOTED. MALONE REMOVED PER DR LANDRUM ORDER. PATIENT TOLERATED WELL, NO BLEEDING NOTED. NOTED WITH SMALL AMOUNT OF URINE OUTPUT. PERICARE PROVIDED. WITH NEW ORDER TO INSERT NEW MALONE CATHETER
--- NOTE | 2019-08-28 11:09 | NUR ---
NEW FC INSERTED WITH CLEAR YELLOW URINE OUTPUT. PATIENT TOLERATED WELL
--- NOTE | 2019-08-28 11:14 | NUR ---
urine collected and sent to lab.
[2019-08-28 11:18] VITALS: BP 124/69
[2019-08-28 11:22] LABS: BASOPHILS # (AUTO) 0.1 /CMM (0.0-0.2); BASOPHILS % (AUTO) 1.2 % (0.0-2.0); EOSINOPHILS % (AUTO) 2.1 % (0.0-6.0); HEMATOCRIT 27 % (39-51); HEMOGLOBIN 8.9 g/dL (13.5-17.5); LYMPHOCYTES # (AUTO) 0.7 /CMM (0.8-4.8); LYMPHOCYTES % (AUTO) 16.1 % (20.0-44.0); MEAN CORPUSCULAR HGB CONC 33 g/dl (31.0-36.0); MEAN CORPUSCULAR VOLUME 83 fL (80-96); MONOCYTES # (AUTO) 0.4 /CMM (0.1-1.30); NEUTROPHILS # (AUTO) 3.2 /CMM (1.8-8.9); NEUTROPHILS % (AUTO) 71.6 % (43.0-81.0); PLATELET COUNT (AUTO) 240 /CMM (150-450); RED BLOOD CELL COUNT(AUTO) 3.29 MIL/uL (4.5-6.0); WHITE BLOOD COUNT (AUTO) 4.4 K/uL (4.3-11.0)
[2019-08-28 11:24] LABS: BILIRUBIN,URINE Negative (NEGATIVE); BLOOD, URINE Moderate Ery/uL (NEGATIVE); COLOR,URINE Yellow (YELLOW); KETONES,URINE Negative (NEGATIVE); LEUKOCYTE ESTERASE ,URINE Trace (NEGATIVE); NITRITE, URINE Negative (NEGATIVE); PROTEIN,URINE >=300 mg/dl (NEGATIVE); UGLUCOSE Negative (NEGATIVE); UROBILINOGEN,URINE 0.2 EU/dL (0.2)
[2019-08-28 11:26] LABS: APPEARANCE,URINE Hazy (CLEAR)
[2019-08-28 11:30] LABS: CALCIUM, SERUM 8.7 mg/dL (8.5-10.1); CREATININE 1.3 mg/dL (0.6-1.3); POTASSIUM 4.2 mmol/L (3.5-5.1)
[2019-08-28 11:31] LABS: BACTERIA,URINE Moderate /HPF (None Seen); SQUAMOUS EPITHELIAL CELL,UR Few /HPF (None Seen); WBC,URINE 15-20 /HPF (0-3)
[2019-08-28 11:32] LABS: YEAST,URINE Many /HPF (None Seen)
[2019-08-28] MEDS ORDERED: CEPHALEXIN MONOHYDRATE 500 MG CAPSULE PO ONE ×2 (12:00→12:06)
--- NOTE | 2019-08-28 12:35 | NUR ---
Social service consult requested by Dr. Hernandez for homeless discharge. Pt. is a 64 year old male who came to [facility] requesting for wound care and catheter malfunction. SW met with the pt. bedside. SW is very familiar with the pt. from several ED and inpatient hospitalizations at [facility]. Pt. is alert and oriented x 4. Pt. is cooperative with SW during the assessment. Pt. is wheelchair bound and had his wheelchair and belongings bedside. SW offered pt. placement and resources, however pt. declined stating he has all the resources he needs. Pt. was provided with clean clothing and a TAP card. Homeless patient waiver form was signed by the pt. and placed in pt's chart. No other social service needs are requested at this time. SW is available, if needed.
--- NOTE | 2019-08-28 12:51 | NUR ---
Patient discharged to home in stable condition. Written and verbal after care instructions given. Patient verbalizes understanding of instruction.
== END 2019-08-28 12:57 | disposition home or self-care (01) ==
LOC: ER 10:48
DX: S80.929A Unspecified superficial injury of unspecified lower leg, initial encounter (principal); S40.929A Unspecified superficial injury of unspecified upper arm, initial encounter; G82.20 Paraplegia, unspecified; N39.0 Urinary tract infection, site not specified; I10 Essential (primary) hypertension; E11.9 Type 2 diabetes mellitus without complications; Z59.0 Homelessness; Z79.899 Other long term (current) drug therapy; X58.XXXA Exposure to other specified factors, initial encounter; Y93.89 Activity, other specified; Y92.89 Other specified places as the place of occurrence of the external cause; Y99.8 Other external cause status
CPT/HCPCS: 36415; 80048-TC; 81000-TC; 85025-TC; 87086-TC

== ENCOUNTER 2019-09-02 16:24 | Emergency (ER) | payer OTHER ==
[~2019-09-02] VITALS: Ht 172.7 cm; Wt 84.4 kg
--- NOTE | 2019-09-02 16:26 | NUR ---
GUCCI FROM THE STREETS C/O L FOOT PAIN AND REQUESTING NEW DRESSINGS. TO ER BED 13, PATIENT NOTED W MALONE CATHETER, ALSO NOTED W L FOOT MULTIPLE WOUNDS. HOOKED TO MONITOR, CHANGED TO KEDAR, AWAITING MD HERNÁNDEZ.
--- NOTE | 2019-09-02 16:40 | NUR ---
RENZO BAUGH AT BEDSIDE
[2019-09-02] MEDS ORDERED: TRAMADOL HCL 50 MG TABLET ONE (16:58)
[2019-09-02] MEDS ORDERED: TRAMADOL HCL 50 MG TABLET PO ONE (17:00)
[2019-09-02 17:17] LABS: APPEARANCE,URINE Clear (CLEAR); BILIRUBIN,URINE Negative (NEGATIVE); BLOOD, URINE Moderate Ery/uL (NEGATIVE); COLOR,URINE Yellow (YELLOW); KETONES,URINE Negative (NEGATIVE); LEUKOCYTE ESTERASE ,URINE Trace (NEGATIVE); NITRITE, URINE Negative (NEGATIVE); PH,URINE 5.5 (5.0-8.0); PROTEIN,URINE >=300 mg/dl (NEGATIVE); UGLUCOSE Negative (NEGATIVE); UROBILINOGEN,URINE 0.2 EU/dL (0.2)
[2019-09-02 17:53] LABS: BACTERIA,URINE Few /HPF (None Seen); SQUAMOUS EPITHELIAL CELL,UR Few /HPF (None Seen); YEAST,URINE Moderate /HPF (None Seen)
--- NOTE | 2019-09-02 18:01 | NUR ---
FOOD TRAY PROVIDED TO PATIENT, TOLERATING PO WELL
[2019-09-02] MEDS ORDERED: FLUCONAZOLE (100 MG) 100 MG TABLET PO ONE (18:30)
[2019-09-02] MEDS ORDERED: FLUCONAZOLE (100 MG) 100 MG TABLET ONE (18:31)
--- NOTE | 2019-09-02 20:01 | NUR ---
Patient given written and verbal discharge instructions. Patient verbalizes understanding of instructions. Patient in wheelchair. Refuses offer of nursing home placement. Patient given list of available shelters in surrounding area. name band removed. Discharged in proper clothing.
[2019-09-02 20:03] VITALS: BP 154/82
== END 2019-09-02 20:04 | disposition home or self-care (01) ==
LOC: ER 16:28
DX: S90.811A Abrasion, right foot, initial encounter (principal); B37.49 Other urogenital candidiasis; Z46.6 Encounter for fitting and adjustment of urinary device; I10 Essential (primary) hypertension; E11.9 Type 2 diabetes mellitus without complications; Z59.0 Homelessness; Z79.899 Other long term (current) drug therapy; Z79.84 Long term (current) use of oral hypoglycemic drugs; X58.XXXA Exposure to other specified factors, initial encounter; Y93.89 Activity, other specified; Y92.89 Other specified places as the place of occurrence of the external cause; Y99.8 Other external cause status
CPT/HCPCS: 51702; 81001; 82962; 87086; 87106; 99284; A6403 ×2; 81000-TC

== ENCOUNTER 2019-09-03 17:24 | Emergency (ER) | payer OTHER ==
[2019-09-03 18:43] LABS: BASOPHILS % (AUTO) 0.6 % (0.0-2.0); EOSINOPHILS % (AUTO) 1.6 % (0.0-6.0); HEMATOCRIT 24 % (39-51); HEMOGLOBIN 7.8 g/dL (13.5-17.5); LYMPHOCYTES # (AUTO) 0.8 /CMM (0.8-4.8); LYMPHOCYTES % (AUTO) 11.7 % (20.0-44.0); MEAN CORPUSCULAR HGB CONC 32 g/dl (31.0-36.0); MEAN CORPUSCULAR VOLUME 83 fL (80-96); MONOCYTES # (AUTO) 0.6 /CMM (0.1-1.30); NEUTROPHILS % (AUTO) 77.1 % (43.0-81.0); PLATELET COUNT (AUTO) 349 /CMM (150-450); RED BLOOD CELL COUNT(AUTO) 2.93 MIL/uL (4.5-6.0); WHITE BLOOD COUNT (AUTO) 6.4 K/uL (4.3-11.0)
[2019-09-03 18:51] LABS: CALCIUM, SERUM 8.3 mg/dL (8.5-10.1); CREATININE 1.2 mg/dL (0.6-1.3); POTASSIUM 5.3 mmol/L (3.5-5.1)
[2019-09-03 19:20] LABS: C-REACTIVE PROTEIN 13.3 mg/dL (0.0-0.9)
--- NOTE | 2019-09-03 19:30 | NUR ---
ASSUMED CARE FOR PATIENT AT THIS TIME
[2019-09-03 20:47] VITALS: BP 129/79
--- NOTE | 2019-09-03 20:48 | NUR ---
Patient given written and verbal discharge instructions. Patient verbalizes understanding of instructions. Patient is ambulatory with steady gait. Refuses offer of [facility] placement. Patient given list of available shelters in surrounding area.
== END 2019-09-03 20:48 | disposition home or self-care (01) ==
LOC: ER 17:30
DX: L97.528 Non-pressure chronic ulcer of other part of left foot with other specified severity (principal); L97.518 Non-pressure chronic ulcer of other part of right foot with other specified severity; E11.621 Type 2 diabetes mellitus with foot ulcer; G82.20 Paraplegia, unspecified; I10 Essential (primary) hypertension; Z59.0 Homelessness; Z79.899 Other long term (current) drug therapy
CPT/HCPCS: 36415; 73630 ×2; 80048; 85025; 85652; 86140; 99284; A6403 ×2

== ENCOUNTER 2019-10-09 17:22 | Inpatient (IN) | payer OTHER ==
[2019-10-08 20:00] VITALS: BP 124/66
[~2019-10-09] VITALS: Ht 172.7 cm; Wt 63.5 kg
--- NOTE | 2019-10-09 17:34 | NUR ---
PAIN X2 DAYS. PT AAOX4. BIBRA90. PT FOUND ON STREET C/O TUNG LOWER EXTREMITY 10 WHEN MOVING. PT IS PARALYZED USES WHEELCHAIR. CATHETER NOTED. BS 216. RR EVEN AND UNLABORED. NO ACUTE DISTRESS NOTED. ON MONITOR AND PULSE OX. NO ACUTE DISTRESS NOTED.
--- NOTE | 2019-10-09 18:02 | NUR ---
Changed the patient. 3 sacral wounds seen. cleaned and wound gauze placed.
--- NOTE | 2019-10-09 18:40 | NUR ---
urine collected and sent to lab
--- NOTE | 2019-10-09 18:49 | NUR ---
Lupillo tobin in JARRED - 10/09/19 at 1859 by MIGUELANGEL labs collected and sent to lab.
[2019-10-09] MEDS ORDERED: AMLO5TAB9 PO (18:50)
[2019-10-09] MEDS ORDERED: GABA600T12 PO (18:50)
[2019-10-09 18:57] LABS: APPEARANCE,URINE Cloudy (CLEAR); BILIRUBIN,URINE SMALL (NEGATIVE); BLOOD, URINE Large Ery/uL (NEGATIVE); COLOR,URINE Yellow (YELLOW); KETONES,URINE Trace (NEGATIVE); LEUKOCYTE ESTERASE ,URINE Small (NEGATIVE); NITRITE, URINE Negative (NEGATIVE); PROTEIN,URINE >=300 mg/dl (NEGATIVE); UGLUCOSE Negative (NEGATIVE); UROBILINOGEN,URINE 0.2 EU/dL (0.2)
[2019-10-09 19:11] LABS: BACTERIA,URINE 3+ /HPF (None Seen); RBC,URINE TOO NUMEROUS TO COUN /HPF (0-2); WBC,URINE TOO NUMEROUS TO COUN /HPF (0-3); YEAST,URINE Hyphal filaments /HPF (None Seen)
[2019-10-09 19:29] LABS: BASOPHILS # (AUTO) 0.1 /CMM (0.0-0.2); BASOPHILS % (AUTO) 0.8 % (0.0-2.0); EOSINOPHILS % (AUTO) 0.3 % (0.0-6.0); HEMATOCRIT 31 % (39-51); HEMOGLOBIN 9.8 g/dL (13.5-17.5); LYMPHOCYTES # (AUTO) 0.9 /CMM (0.8-4.8); LYMPHOCYTES % (AUTO) 5.9 % (20.0-44.0); MEAN CORPUSCULAR HGB CONC 32 g/dl (31.0-36.0); MEAN CORPUSCULAR VOLUME 83 fL (80-96); MONOCYTES # (AUTO) 0.9 /CMM (0.1-1.30); MONOCYTES % (AUTO) 5.6 % (2.0-12.0); NEUTROPHILS # (AUTO) 13.6 /CMM (1.8-8.9); NEUTROPHILS % (AUTO) 87.4 % (43.0-81.0); PLATELET COUNT (AUTO) 354 /CMM (150-450); RED BLOOD CELL COUNT(AUTO) 3.72 MIL/uL (4.5-6.0); WHITE BLOOD COUNT (AUTO) 15.5 K/uL (4.3-11.0)
--- NOTE | 2019-10-09 19:37 | NUR ---
Patient is resting comfortably in bed. Easily aroused.
[2019-10-09] MEDS ORDERED: CEFTRIAXONE 1GM BAG (ER ONLY) 50 ML IV ONE ×2 (19:49→20:00)
[2019-10-09 19:57] LABS: ALBUMIN 2.6 g/dL (3.4-5.0); BILIRUBIN,DIRECT 0.1 mg/dL (0.0-0.2); BILIRUBIN,TOTAL 0.2 mg/dL (0.2-1.0); CALCIUM, SERUM 8.8 mg/dL (8.5-10.1); CREATININE 1.9 mg/dL (0.6-1.3); POTASSIUM 5.1 mmol/L (3.5-5.1)
--- NOTE | 2019-10-09 19:59 | NUR ---
BED ASSIGNMENT MS 111-2
--- NOTE | 2019-10-09 20:00 | NUR ---
BS CHECKED 79.
--- NOTE | 2019-10-09 20:14 | NUR ---
REPORT GIVEN TO ALDO JERNIGAN FOR IVELISSE.
--- NOTE | 2019-10-09 20:29 | NUR ---
pt transfered to bed 111-2 per acls protocol.
--- NOTE | 2019-10-09 21:00 | NUR ---
RN ADMITTING NOTES RECEIVED PATIENT FROM ER & ADMITTED TO ROOM 111-2 W/ DX UTI UNDER CARE OF PETERSON BOYKIN. PATIENT A/A/O X2-3, ABLE TO VERBALIZE NEEDS. BREATHING EVEN & UNLABORED, TOLERATING ROOM AIR. DENIES ANY SOB OR DIFFICULTY BREATHING. RADIAL PULSES PRESENT. RIGHT WRIST IV #20 INTACT & PATENT W/ DRESSING CDI W/ NO SIGNS OF COMPLICATIONS NOTED. MALONE CATH DRAINING CLOUDY, YELLOW URINE. DENIES ANY PAIN OR DISCOMFORT @ THIS TIME. SKIN ASSESSMENT & ORIENTED TO ROOM & STAFF. SAFETY MEASURES IN PLACE W/ SIDE RAILS UP & BED ALARM ON. CALL LIGHT PLACED WITHIN REACH & INSTRUCTED TO CALL FOR ASSISTANCE. AWAITING ADMITTING ORDERS.
[2019-10-09 22:28] VITALS: BP 152/75
[2019-10-09] MEDS ORDERED: ONDANSETRON HCL/PF 4 MG/2 ML VIAL IVP PRN (23:30)
[2019-10-09] MEDS ORDERED: Z GUARD REMEDY 2 OZ OINT TP PRN (23:30)
[2019-10-09] MEDS ORDERED: MAG HYDROX/AL HYDROX/SIMETH 30 ML UDC PO PRN (23:30)
[2019-10-09] MEDS ORDERED: HYDROCODONE/APAP 5/325MG 1 EACH TABLET PO PRN (23:30)
[2019-10-09] MEDS ORDERED: MAGNESIUM HYDROXIDE 30 ML UDC PO PRN (23:30)
[2019-10-09] MEDS ORDERED: ACETAMINOPHEN 325 MG TABLET PO PRN (23:30)
[2019-10-09] MEDS ORDERED: ZOLPIDEM TARTRATE 5 MG TABLET PO PRN (23:30)
[2019-10-09] MEDS ORDERED: DEXTROSE 50%-WATER 50 ML DISP.SYRIN IV PRN (23:30)
[2019-10-10] MEDS: IV NS 0.9% 1,000 ML IV PRN ×2 (00:54→16:39)
[2019-10-10 04:00] VITALS: BP 120/51
[2019-10-10 06:55] LABS: BASOPHILS # (AUTO) 0.1 /CMM (0.0-0.2); BASOPHILS % (AUTO) 0.7 % (0.0-2.0); EOSINOPHILS % (AUTO) 0.7 % (0.0-6.0); HEMATOCRIT 27 % (39-51); HEMOGLOBIN 8.6 g/dL (13.5-17.5); LYMPHOCYTES # (AUTO) 1.1 /CMM (0.8-4.8); LYMPHOCYTES % (AUTO) 9.5 % (20.0-44.0); MEAN CORPUSCULAR HGB CONC 32 g/dl (31.0-36.0); MEAN CORPUSCULAR VOLUME 83 fL (80-96); MONOCYTES # (AUTO) 0.7 /CMM (0.1-1.30); MONOCYTES % (AUTO) 6.3 % (2.0-12.0); NEUTROPHILS # (AUTO) 9.4 /CMM (1.8-8.9); NEUTROPHILS % (AUTO) 82.8 % (43.0-81.0); PLATELET COUNT (AUTO) 318 /CMM (150-450); RED BLOOD CELL COUNT(AUTO) 3.28 MIL/uL (4.5-6.0); WHITE BLOOD COUNT (AUTO) 11.3 K/uL (4.3-11.0)
[2019-10-10 06:58] LABS: ALBUMIN 2.2 g/dL (3.4-5.0); BILIRUBIN,TOTAL 0.2 mg/dL (0.2-1.0); CALCIUM, SERUM 8.3 mg/dL (8.5-10.1); CREATININE 1.8 mg/dL (0.6-1.3); MAGNESIUM 2.3 mg/dL (1.8-2.4); PHOSPHORUS 4.1 mg/dL (2.5-4.9); POTASSIUM 4.3 mmol/L (3.5-5.1)
[2019-10-10] MEDS: INSULIN REGULAR, HUMAN 100 UNIT/ML 3 ML VIAL SQ PRN ×4 (07:43→22:22)
[2019-10-10] MEDS: BLOOD SUGAR DIAGNOSTIC 1 EACH STRIP IN SCH ×4 (07:43→22:20)
--- NOTE | 2019-10-10 07:44 | NUR ---
RN OPENING NOTES RECEIVED PATIENT RESTING IN BED COMFORTABLY, EASILY AROUSED. HE IS AOX3, VERBAL, AND ON BEDREST. HE IS ON RA, TOLERATING WELL, NO S/SX OF RESP DISTRESS OR SOB. MALONE CATHETER IS PATENT AND INTACT, DRAINING URINE. CHEST RISES AND FALLS EVENLY, LUNG LOTT CLEAR. SKIN IS NOT INTACT, MULTIPLE WOUNDS THROUGHOUT BODY. HE IS ON CONSISTENT CARB DIET, TOLERATING WELL. RWRIST 20 G IS PATENT AND INTACT, INFUSING NS AT 75 ML.HR. SKIN IS WARM AND DRY. WOUND CONSULT PENDING. SAFETY MEASURES HAVE BEEN IMPLEMENTED, CALL LIGHT IS WITHIN REACH, BED IS IN LOWEST AND LOCKED POSITION, SIDE RAILS UP X2, WILL CONTINUE TO MONITOR FOR ANY CHANGES.
[2019-10-10 08:00] VITALS: BP 138/72
[2019-10-10] MEDS: AMLODIPINE BESYLATE 5 MG TABLET PO SCH (09:29)
[2019-10-10] MEDS: hydrALAZINE HCL 25 MG TABLET PO SCH ×3 (09:29→17:21)
[2019-10-10] MEDS: FERROUS SULFATE (325 MG) 325 MG/TAB TABLET PO SCH (09:30)
[2019-10-10] MEDS: HEPARIN SODIUM, PORCINE 5000 UNITS/1 ML VIAL SQ SCH ×2 (09:32→20:37)
[2019-10-10 12:16] LABS: CREATININE, URINE 125.7 MG/DL (30.0-125.0); URINE TOTAL PROTEIN 172.6 mg/dL (0-11.9)
[2019-10-10 12:51] LABS: APPEARANCE,URINE SLIGHTLY HAZY (CLEAR); COLOR,URINE YELLOW (YELLOW); PH,URINE 5.5 (5.0-8.0)
[2019-10-10 12:52] LABS: BILIRUBIN,URINE NEGATIVE (NEGATIVE); BLOOD, URINE 2+ Ery/uL (NEGATIVE); KETONES,URINE TRACE (NEGATIVE); NITRITE, URINE NEGATIVE (NEGATIVE); PROTEIN,URINE 1+ mg/dl (NEGATIVE); UGLUCOSE NEGATIVE (NEGATIVE); UROBILINOGEN,URINE 0.2 EU/dL (0.2)
[2019-10-10 12:53] LABS: LEUKOCYTE ESTERASE ,URINE 1+ (NEGATIVE)
[2019-10-10 13:07] LABS: BACTERIA,URINE Many /HPF (None Seen); SQUAMOUS EPITHELIAL CELL,UR Moderate /HPF (None Seen); WBC,URINE 51-80 /HPF (0-3); YEAST,URINE Few /HPF (None Seen)
[2019-10-10 13:49] LABS: EOSINOPHIL,URINE None Seen
[2019-10-10] MEDS ORDERED: LIDOCAINE 1%-EPI 1:100,000 20 ML VIAL TP ONE (14:30)
[2019-10-10] MEDS ORDERED: SILVER NITRATE APPLICATOR 1 EA BOX TP ONE (14:30)
[2019-10-10] MEDS ORDERED: SILVER SULFADIAZINE 50 GM JAR TP SCH (15:30)
[2019-10-10 16:00] VITALS: BP 145/65
[2019-10-10] MEDS: DAKINS QUARTER STRENGTH (0.125%) 480 ML BOTTLE TOP SCH (16:00)
[2019-10-10] MEDS: HYDROGEL DRESSING 90 GM TUBE TP SCH (16:00)
--- NOTE | 2019-10-10 18:48 | NUR ---
RN CLOSING NOTES PATIENT IS RESTING COMFORTABLY IN BED AT THIS TIME, DENIES ANY PAIN, SOB, OR DISCOMFORT. PT WAS SEEN BY WOUND CARE PROVIDERS FOR MULTIPLE WOUNDS THROUGHOUT THE BODY. PATIENT NEEDS HAVE BEEN MET, VITAL SIGNS ARE STABLE, NO ACUTE CHANGES OCCURRED THROUGHOUT THE SHIFT. SAFETY MEASURES HAVE BEEN IMPLEMENTED, CALL LIGHT IS WITHIN REACH, BED IS IN LOWEST AND LOCKED POSITION, SIDE RAILS UP X2, WILL ENDORSE TO NIGHTSHIFT RN FOR CONTINUITY OF CARE.
--- NOTE | 2019-10-10 19:20 | NUR ---
RN NOTES, RECEIVED PATIENT RESTING IN BED AWAKE, ABLE TO COMMUNICATE NEEDS AND CONCERNS, ON RA, TOLERATING WELL, WITH OPTIMAL O2 SAT LEVEL, SOB/ ACUTE DISTRESS NOTED, IV ACCESS RIGHT WRIST 20 G IS PATENT AND INTACT, INFUSING NS AT 75 ML.HR, NO S/S OF INFILTRATION OR ABNORMALITY NOTED, SAFETY MEASURES IN PLACED, CALL LIGHT W/I WITHIN REACH, BED LOCKED AND LOW POSITION, SIDE RAILS UP X2, WILL CONTINUE TO MONITOR CLOSELY.
[2019-10-10 20:00] VITALS: BP 138/69
[2019-10-10] MEDS: CEFTRIAXONE 1 G in IV D5W 50 ML IV SCH (20:37)
[2019-10-11 04:00] VITALS: BP 148/65
[2019-10-11] MEDS: IV NS 0.9% 1,000 ML IV PRN ×3 (05:51→20:48)
--- NOTE | 2019-10-11 06:51 | NUR ---
RN NOTES, NO SIGNIFICANT CHANGE IN CONDITION DURING THE NIGHT, BREATHING EVEN ND UNLABORED, NO SOB/ACUTE DISTRESS NOTED, WITH STABLE VS, WILL HAVE HEMODIALYSES TODAY, WILL ENDORSE CONTINUITY OF CARE TO ONCOMING NURSE. Addendum: 10/11/19 at 0653 by CELY MCCRAY RN WRONG ENTRY
--- NOTE | 2019-10-11 06:53 | NUR ---
RN NOTES, NO SIGNIFICANT CHANGE IN CONDITION DURING THE NIGHT, BREATHING EVEN ND UNLABORED, NO SOB/ACUTE DISTRESS NOTED, WITH STABLE VS, PATIENT REFUSED CHANGE AND WOUND TREATMENT, ENCOURAGED X3, EXPLAINED RISKS AND BENEFITS, STILL REFUSED, EVEN BECAME AGGRESSIVE TOWARDS STAFF, WILL ENDORSE CONTINUITY OF CARE TO ONCOMING NURSE.
[2019-10-11 07:08] LABS: BASOPHILS # (AUTO) 0.1 /CMM (0.0-0.2); BASOPHILS % (AUTO) 0.7 % (0.0-2.0); EOSINOPHILS % (AUTO) 1.1 % (0.0-6.0); HEMATOCRIT 27 % (39-51); HEMOGLOBIN 8.6 g/dL (13.5-17.5); LYMPHOCYTES # (AUTO) 1.1 /CMM (0.8-4.8); LYMPHOCYTES % (AUTO) 12.2 % (20.0-44.0); MEAN CORPUSCULAR HGB CONC 32 g/dl (31.0-36.0); MEAN CORPUSCULAR VOLUME 83 fL (80-96); MONOCYTES # (AUTO) 0.7 /CMM (0.1-1.30); MONOCYTES % (AUTO) 8.1 % (2.0-12.0); NEUTROPHILS # (AUTO) 7.1 /CMM (1.8-8.9); NEUTROPHILS % (AUTO) 77.9 % (43.0-81.0); PLATELET COUNT (AUTO) 337 /CMM (150-450); RED BLOOD CELL COUNT(AUTO) 3.27 MIL/uL (4.5-6.0); WHITE BLOOD COUNT (AUTO) 9.1 K/uL (4.3-11.0)
[2019-10-11 07:26] LABS: ALBUMIN 2.1 g/dL (3.4-5.0); BILIRUBIN,TOTAL 0.2 mg/dL (0.2-1.0); CALCIUM, SERUM 8.4 mg/dL (8.5-10.1); CREATININE 1.3 mg/dL (0.6-1.3); MAGNESIUM 2.3 mg/dL (1.8-2.4); POTASSIUM 3.9 mmol/L (3.5-5.1); TOTAL PROTEIN, SERUM 6.9 g/dL (6.4-8.2)
--- NOTE | 2019-10-11 07:30 | NUR ---
MS/RN NOTE THE PATIENT IS RECEIVED IN BED. PATIENT IS AWAKE. ALERT AND ORIENTED X3. IN ROOM AIR AND DENIES SOB. RESPIRATION REGULAR AND UNLABORED. DENIES PAIN. THE PATIENT IN NO APPARENT DISTRESS. RIGHT WRIST G 20 PATENT AND NORMAL SALINE INFUSING AT 75ML/HR AND NO S/S INFILTRATION NOTED. MALONE CATH IN PLACE AND NOTED CLEAR, YELLOW COLOR URINE. NO BLADDER DISTENSION NOTED. WILL CONTINUE TO MONITOR.
[2019-10-11 08:00] VITALS: BP_SYST 145; BP_SYST 170; BP_DIAS 68; BP_DIAS 93
[2019-10-11] MEDS: INSULIN REGULAR, HUMAN 100 UNIT/ML 3 ML VIAL SQ PRN ×4 (08:04→22:08)
[2019-10-11] MEDS: FERROUS SULFATE (325 MG) 325 MG/TAB TABLET PO SCH (08:06)
[2019-10-11] MEDS: hydrALAZINE HCL 25 MG TABLET PO SCH ×3 (08:06→16:51)
[2019-10-11] MEDS: AMLODIPINE BESYLATE 5 MG TABLET PO SCH (08:06)
[2019-10-11] MEDS: BLOOD SUGAR DIAGNOSTIC 1 EACH STRIP IN SCH ×4 (08:07→22:09)
[2019-10-11] MEDS: HEPARIN SODIUM, PORCINE 5000 UNITS/1 ML VIAL SQ SCH ×3 (08:08→21:00)
--- NOTE | 2019-10-11 11:24 | NUR ---
Social work consult requested for possible homelessness. Pt is not able to go to jail upon discharge due to need for higher level of care and overal physical condition. Pt referred to Case Management for other options for placement to be explored as pt is not appropriate for shelters at this time. Inside Sales Account Executive available if needed.
[2019-10-11 16:00] VITALS: BP 152/68
[2019-10-11] MEDS: DAKINS QUARTER STRENGTH (0.125%) 480 ML BOTTLE TOP SCH (16:52)
[2019-10-11] MEDS: HYDROGEL DRESSING 90 GM TUBE TP SCH (16:52)
[2019-10-11] MEDS: SILVER SULFADIAZINE CREAM 25 GM TUBE TP SCH (16:53)
--- NOTE | 2019-10-11 18:47 | NUR ---
MS/RN NOTE THE PATIENT IS ALERT AND ORIENTED X4. IN ROOM AIR AND DENIES SOB. OXYGEN SATURATION IS ROOM AIR IS AT 98%. DENIES PAIN AT THIS TIME. RIGHT WRIST G 20 PATENT AND NS INFUSING AT 75ML/HR AND NO S/S INFILTRATION NOTED. DRESSING CHANGES DONE PER ORDER AND THE PATIENT TOLERATED IT WELL. PATIENT NON-COMPLIANT WITH TURNING AND REPOSITIONING DESPITE EXPLAINING RISKS AND BENEFITS. BED LOW AND LOCKED. SIDE RAILS UP X3. CALL LIGHT WITHIN REACH. WILL ENDORSE TO RESEARCH MECHANIC.
[2019-10-11] MEDS: CEFTRIAXONE 1 G in IV D5W 50 ML IV SCH (20:28)
[2019-10-12] MEDS: BLOOD SUGAR DIAGNOSTIC 1 EACH STRIP IN SCH ×3 (05:33→17:13)
--- NOTE | 2019-10-12 06:02 | NUR ---
Refuses blood sugar check, wound care, labwork, and vital signs. Gonzalo Reyna RN
--- NOTE | 2019-10-12 07:08 | NUR ---
Endorsement to DELON Sullivan. Gonzalo Reyna RN
--- NOTE | 2019-10-12 07:22 | NUR ---
MS RN OPENING NOTE RECEIVED REPORT FROM [facility] SHIFT NURSE. PT ASLEEP IN BED, ON ROOM AIR, SATURATING WELL, RESPIRATIONS EVEN AND UNLABORED, NO SIGNS OF RESPIRATORY DISTRESS NOTED. IV SITE ON RIGHT WRIST G20 INTACT, PATENT. NS INFUSING AT 75CC/HR, NO SIGNS OF INFILTRATION NOTED. BED IN LOW POSITION, LOCKED, CALL LIGHT WITHIN REACH.
[2019-10-12 08:00] VITALS: BP 165/78
[2019-10-12] MEDS: hydrALAZINE HCL 25 MG TABLET PO SCH ×3 (08:19→16:06)
[2019-10-12] MEDS: AMLODIPINE BESYLATE 5 MG TABLET PO SCH (08:19)
[2019-10-12] MEDS: FERROUS SULFATE (325 MG) 325 MG/TAB TABLET PO SCH (08:19)
[2019-10-12] MEDS: HEPARIN SODIUM, PORCINE 5000 UNITS/1 ML VIAL SQ SCH (08:26)
[2019-10-12] MEDS: DAKINS QUARTER STRENGTH (0.125%) 480 ML BOTTLE TOP SCH (09:51)
[2019-10-12] MEDS: SILVER SULFADIAZINE CREAM 25 GM TUBE TP SCH (09:51)
[2019-10-12] MEDS: HYDROGEL DRESSING 90 GM TUBE TP SCH (09:51)
[2019-10-12] MEDS ORDERED: CEPH-570 PO (11:52)
[2019-10-12] MEDS ORDERED: Blood Sugar Diagnostic IN (11:52)
[2019-10-12] MEDS ORDERED: INSU100V28 SQ (11:52)
[2019-10-12 12:06] LABS: PTH, INTACT 34 pg/mL (15-65)
[2019-10-12] MEDS: INSULIN REGULAR, HUMAN 100 UNIT/ML 3 ML VIAL SQ PRN (12:54)
[2019-10-12 13:20] LABS: BASOPHILS # (AUTO) 0.1 /CMM (0.0-0.2); BASOPHILS % (AUTO) 0.7 % (0.0-2.0); HEMATOCRIT 27 % (39-51); HEMOGLOBIN 8.8 g/dL (13.5-17.5); LYMPHOCYTES # (AUTO) 0.9 /CMM (0.8-4.8); LYMPHOCYTES % (AUTO) 9.8 % (20.0-44.0); MEAN CORPUSCULAR HGB CONC 32 g/dl (31.0-36.0); MEAN CORPUSCULAR VOLUME 82 fL (80-96); MONOCYTES # (AUTO) 0.5 /CMM (0.1-1.30); MONOCYTES % (AUTO) 5.4 % (2.0-12.0); NEUTROPHILS # (AUTO) 7.6 /CMM (1.8-8.9); NEUTROPHILS % (AUTO) 83.1 % (43.0-81.0); PLATELET COUNT (AUTO) 359 /CMM (150-450); RED BLOOD CELL COUNT(AUTO) 3.31 MIL/uL (4.5-6.0); WHITE BLOOD COUNT (AUTO) 9.2 K/uL (4.3-11.0)
[2019-10-12 14:10] LABS: CALCIUM, SERUM 8.4 mg/dL (8.5-10.1); POTASSIUM 3.6 mmol/L (3.5-5.1)
--- NOTE | 2019-10-12 15:12 | NUR ---
NURSES NOTE PATIENT REFUSED TO SIGN ANY CONSENT PROCEDURE AT THIS TIME. PATIENT EDUCATED TO RISKS AND BENEFITS. PATIENT REFUSED. Addendum: 10/12/19 at 1514 by Marylin Coreas RN Amended: Links added.
--- NOTE | 2019-10-12 15:23 | NUR ---
NURSES NOTE GAVE REPORT TO DELON DANIELLE AT [phone] FOR TRANSFER TO SENIOR CARE FACILITY. NOTIFIED DELON DANIELLE THAT PATIENT FOOT ROENTGENOLOGIST TIME IS 1630. ALL QUESTIONS ANSWERED.
--- NOTE | 2019-10-12 15:30 | NUR ---
NURSES NOTE RECEIVED PATIENT FROM DELON NATION FOR CONTINUATION OF CARE. PATIENT ASLEEP AT THIS TIME WITH NO SIGNS OF DISTRESS. PATIENT BED ALARMS PAPER DELIVERER LIGHT WITHIN REACH. WILL CONTINUE TO MONITOR.
--- NOTE | 2019-10-12 16:00 | NUR ---
NURSES NOTE PATIENT REFUSED TO HAVE WOUND CARE DOCUMENTATION COMPLETED AT THIS TIME FOR DISCHARGE. PATIENT EDUCATED TO RISKS AND BENEFITS OF NOT COMPLYING TO WOUND CARE DOCUMENTATION PROTOCOL. PATIENT GAVE VERBAL UNDERSTANDING AND REFUSED.
[2019-10-12 16:06] VITALS: BP 154/96
--- NOTE | 2019-10-12 16:06 | NUR ---
NURSES NOTE PATIENT REFUSED HYDRALAZINE FOR BLOOD PRESSURE CONTROL. PATIENT ALSO REFUSED FOR RN TO CHECK VITAL SIGNS. PATIENT STATES "IT'S NOT NECESSARY BECAUSE HE IS LEAVING." PATIENT EDUCATED TO RISKS AND BENEFITS. PATIENT GAVE VERBAL UNDERSTANDING AND REFUSED. WILL CONTINUE TO MONITOR. ALARMS ON, CALL LIGHT WITHIN REACH.
--- NOTE | 2019-10-12 18:21 | NUR ---
DISCHARGE NOTE PATIENT DISCHARGED IN ALERT, ORIENTED AND STABLE CONDITION TO [facility] VIA AMBULANCE. PATIENT IV LINE DISCONTINUED. PATIENT SIGNED EXIT CARE DOCUMENTATION. PATIENT REPORT GIVEN TO RECEIVING FACILITY RN LOLIS, ALL QUESTION ANSWERED. PATIENT CHART ASSEMBLED BY CHARGE NURSE AND GIVEN TO AMBULANCE DRIVERS. PATIENT DISCHARGED WITH PRIVATE WHEELCHAIR VIA GURNEY. PATIENT DISCHARGED WITH MALONE PATIENT REFUSED TO ALLOW PREVIOUS RN TO REMOVE. PATIENT ALSO REFUSED DISCHARGE WOUND DOCUMENTATION PHOTOS. DURING DISCHARGE AMBULANCE DRIVERS REQUESTED ASSISTANCE TO HELP TAKE WHEELCHAIR AND PATIENTS BAGS OF BELONGINGS DOWN TO AMBULANCE BAY. RN ASKED AMBULANCE DRIVERS TO WAIT IN ROOM WHILE RN NOTIFIED CHARGE NURSE OF THE DRIVERS REQUEST FOR ASSISTANCE AND TO EITHER ENDORSE PATIENTS OF GET A MOTHER REPAIRER TO ASSIST. RN NOTIFIED CHARGE NURSE SOON. WHEN RN AND MOTHER REPAIRER WENT BACK TO THE ROOM, AMBULANCE DRIVERS, PATIENT, AND PATIENT'S WHEELCHAIR WERE GONE. HOWEVER AMBULANCE DRIVERS LEFT THREE BAGS OF PATIENTS BELONGINGS. RN NOTIFIED CHARGE NURSE SOON OF AMBULANCE DRIVERS LEAVING WITHOUT BELONGINGS. RN CALLED SECURITY TO NOTIFY TO HOLD AMBULANCE DRIVERS, HOWEVER NO AMBULANCE DRIVERS WERE SEEN. RN PLACED PLACED NAME ON PATIENT BELONGINGS AND CALLED CASE MANAGEMENT TO LEAVE MESSAGE AT 7514. RN NOTIFIED CHARGE NURSE SOON. PATIENT MOTHER REPAIRER WITNESS AMBULANCE DRIVERS LEAVE AFTER BEING ASKED TO WAIT.
[2019-10-13 06:46] LABS: *SPE A/G RATIO 0.6 (0.7-1.7); *SPE ALBUMIN 2.3 g/dL (2.9-4.4); *SPE ALPHA-1-GLOBULIN 0.4 g/dL (0.0-0.4); *SPE ALPHA-2-GLOBULIN 0.9 g/dL (0.4-1.0); *SPE GLOBULIN, TOTAL 3.8 g/dL (2.2-3.9); *SPE M-SPIKE Not Observed g/dL (Not Observed); *SPEGAMMA GLOBULIN 1.4 g/dL (0.4-1.8)
== END 2019-10-12 18:00 | DRG 710 ==
LOC: ER 17:27 → MEDSG1 20:05
PROVIDERS: ADMIT Hospitalist; ATTEND Nurse Practitioner Acute Care
PROC: 0KBN0ZZ Excision of Right Hip Muscle, Open Approach (ICD-10-PCS; principal; 2019-10-10)
PROC: 0KBP0ZZ Excision of Left Hip Muscle, Open Approach (ICD-10-PCS; principal; 2019-10-10)
DX: A41.9 Sepsis, unspecified organism (principal); N17.0 Acute kidney failure with tubular necrosis; E43 Unspecified severe protein-calorie malnutrition; L89.154 Pressure ulcer of sacral region, stage 4; E11.40 Type 2 diabetes mellitus with diabetic neuropathy, unspecified; L89.313 Pressure ulcer of right buttock, stage 3; G82.20 Paraplegia, unspecified; L89.896 Pressure-induced deep tissue damage of other site; F17.210 Nicotine dependence, cigarettes, uncomplicated; D50.9 Iron deficiency anemia, unspecified; L89.323 Pressure ulcer of left buttock, stage 3; N39.0 Urinary tract infection, site not specified; Z99.3 Dependence on wheelchair; I10 Essential (primary) hypertension; Z68.21 Body mass index [BMI] 21.0-21.9, adult; E88.09 Other disorders of plasma-protein metabolism, not elsewhere classified; N13.6 Pyonephrosis; E11.51 Type 2 diabetes mellitus with diabetic peripheral angiopathy without gangrene; E66.01 Morbid (severe) obesity due to excess calories; L97.519 Non-pressure chronic ulcer of other part of right foot with unspecified severity; L97.529 Non-pressure chronic ulcer of other part of left foot with unspecified severity; B96.20 Unspecified Escherichia coli [E. coli] as the cause of diseases classified elsewhere; E11.621 Type 2 diabetes mellitus with foot ulcer; Z59.0 Homelessness; T83.098A Other mechanical complication of other urinary catheter, initial encounter; Y83.9 Surgical procedure, unspecified as the cause of abnormal reaction of the patient, or of later complication, without mention of misadventure at the time of the procedure; Y92.89 Other specified places as the place of occurrence of the external cause
CPT/HCPCS: 36415; 71045-TC; 76770-TC; 80048-TC; 80053-TC; 80061-TC; 80076-TC; 81000-TC; 82550-TC; 82570-TC; 82728-TC; 82962-TC; 83540-TC; 83605-TC; 83735-TC; 83970; 84100-TC; 84155; 84155-TC; 84165; 84300-TC; 85025-TC; 87040-TC; 87081-TC; 87086-TC; 87186-TC; A6248; A6253; A6403; G0378; J0696; J1644; J1815; J3490; J7030; J7060

== ENCOUNTER 2019-10-16 16:21 | Inpatient (IN) | payer OTHER ==
[~2019-10-16] VITALS: Ht 172.7 cm; Wt 68.1 kg
[~2019-10-16 16:21] MED LIST changes: +AMLO5TAB9 PO; +Blood Sugar Diagnostic IN; +CEPH-570 PO; -HYDR-4354 PO; +INSU100V28 SQ; -METF-440 PO
[2019-10-16] MEDS ORDERED: CEPH-570 PO (16:48)
[2019-10-16 17:47] LABS: BASOPHILS # (AUTO) 0.1 /CMM (0.0-0.2); BASOPHILS % (AUTO) 0.5 % (0.0-2.0); EOSINOPHILS % (AUTO) 1.5 % (0.0-6.0); HEMATOCRIT 26 % (39-51); HEMOGLOBIN 8.3 g/dL (13.5-17.5); LYMPHOCYTES # (AUTO) 1.1 /CMM (0.8-4.8); LYMPHOCYTES % (AUTO) 9.2 % (20.0-44.0); MEAN CORPUSCULAR HGB CONC 32 g/dl (31.0-36.0); MEAN CORPUSCULAR VOLUME 83 fL (80-96); MONOCYTES # (AUTO) 0.8 /CMM (0.1-1.30); MONOCYTES % (AUTO) 6.2 % (2.0-12.0); NEUTROPHILS # (AUTO) 10.1 /CMM (1.8-8.9); NEUTROPHILS % (AUTO) 82.6 % (43.0-81.0); PLATELET COUNT (AUTO) 361 /CMM (150-450); RED BLOOD CELL COUNT(AUTO) 3.14 MIL/uL (4.5-6.0); WHITE BLOOD COUNT (AUTO) 12.2 K/uL (4.3-11.0)
[2019-10-16 18:02] LABS: BILIRUBIN,TOTAL 0.1 mg/dL (0.2-1.0); CALCIUM, SERUM 8.6 mg/dL (8.5-10.1); CREATININE 1.3 mg/dL (0.6-1.3); POTASSIUM 4.4 mmol/L (3.5-5.1); TOTAL PROTEIN, SERUM 7.1 g/dL (6.4-8.2)
[2019-10-16] MEDS ORDERED: PIPERACILLIN /TAZOBACTAM 3.375 G in IV D5W 50 ML IV ONE (19:30)
[2019-10-16] MEDS ORDERED: IV NS 0.9% 1,000 ML BAG IV ONE (19:30)
[2019-10-16] MEDS ORDERED: VANCOMYCIN 1 GM in IV D5W 250 ML IV ONE (19:30)
[2019-10-16 20:00] VITALS: BP 159/80
[2019-10-16] MEDS ORDERED: MAGNESIUM HYDROXIDE 30 ML UDC PO PRN (20:00)
[2019-10-16] MEDS ORDERED: MAG HYDROX/AL HYDROX/SIMETH 30 ML UDC PO PRN (20:00)
[2019-10-16] MEDS ORDERED: DEXTROSE 50%-WATER 50 ML DISP.SYRIN IV PRN (20:00)
[2019-10-16] MEDS ORDERED: INSULIN REGULAR, HUMAN 100 UNIT/ML 3 ML VIAL SQ PRN (20:00)
[2019-10-16] MEDS ORDERED: Z GUARD REMEDY 2 OZ OINT TP PRN (20:00)
[2019-10-16] MEDS ORDERED: ACETAMINOPHEN 325 MG TABLET PO PRN (20:00)
[2019-10-16] MEDS ORDERED: ONDANSETRON HCL/PF 4 MG/2 ML VIAL IVP PRN (20:00)
[2019-10-16 20:30] VITALS: BP 159/80
[2019-10-16] MEDS: GABAPENTIN 300 MG CAPSULE PO SCH ×2 (20:30→22:15)
[2019-10-16] MEDS ORDERED: FEE PK DOSING 1 MIN EA MC ONE (20:38)
[2019-10-16] MEDS: BLOOD SUGAR DIAGNOSTIC 1 EACH STRIP IN SCH (21:00)
[2019-10-16] MEDS: INSULIN REGULAR, HUMAN 100 UNIT/ML 3 ML VIAL SQ PRN (22:08)
[2019-10-16] MEDS: ENOXAPARIN SODIUM 40 MG/0.4 ML DISP.SYRIN SQ SCH (22:16)
[2019-10-16] MEDS: IV NS 0.9% 1,000 ML IV PRN ×2 (22:22→22:25)
[2019-10-17] MEDS: BLOOD SUGAR DIAGNOSTIC 1 EACH STRIP IN SCH ×6 (01:00→21:32)
[2019-10-17] MEDS: INSULIN REGULAR, HUMAN 100 UNIT/ML 3 ML VIAL SQ PRN ×4 (01:06→21:37)
[2019-10-17] MEDS: PANTOPRAZOLE 40 MG TABLET.DR PO SCH (07:17)
[2019-10-17] MEDS: IV NS 0.9% 1,000 ML IV PRN (07:23)
[2019-10-17 08:00] VITALS: BP 130/63
[2019-10-17] MEDS: VANCOMYCIN 0.75 GM in IV D5W 250 ML IV SCH ×2 (08:16→21:00)
[2019-10-17] MEDS: NICOTINE PATCH (14MG) 14 MG PATCH.TD24 TD SCH ×2 (08:17→08:56)
[2019-10-17] MEDS: GABAPENTIN 300 MG CAPSULE PO SCH ×3 (08:17→20:59)
[2019-10-17] MEDS: LISINOPRIL (20MG) 20 MG TABLET PO SCH (08:18)
[2019-10-17] MEDS: FERROUS SULFATE (325 MG) 325 MG/TAB TABLET PO SCH (08:18)
[2019-10-17] MEDS: hydrALAZINE HCL 25 MG TABLET PO SCH ×3 (08:18→16:27)
[2019-10-17] MEDS: AMLODIPINE BESYLATE 5 MG TABLET PO SCH (08:18)
[2019-10-17 09:54] LABS: BASOPHILS # (AUTO) 0.1 /CMM (0.0-0.2); BASOPHILS % (AUTO) 0.6 % (0.0-2.0); HEMATOCRIT 25 % (39-51); HEMOGLOBIN 7.9 g/dL (13.5-17.5); LYMPHOCYTES # (AUTO) 0.9 /CMM (0.8-4.8); LYMPHOCYTES % (AUTO) 8.4 % (20.0-44.0); MEAN CORPUSCULAR HGB CONC 32 g/dl (31.0-36.0); MEAN CORPUSCULAR VOLUME 82 fL (80-96); MONOCYTES # (AUTO) 0.6 /CMM (0.1-1.30); MONOCYTES % (AUTO) 5.6 % (2.0-12.0); NEUTROPHILS # (AUTO) 9.1 /CMM (1.8-8.9); NEUTROPHILS % (AUTO) 83.4 % (43.0-81.0); PLATELET COUNT (AUTO) 364 /CMM (150-450); RED BLOOD CELL COUNT(AUTO) 2.98 MIL/uL (4.5-6.0); WHITE BLOOD COUNT (AUTO) 10.9 K/uL (4.3-11.0)
[2019-10-17 10:12] LABS: CALCIUM, SERUM 8.2 mg/dL (8.5-10.1); CREATININE 1.2 mg/dL (0.6-1.3); MAGNESIUM 1.7 mg/dL (1.8-2.4); PHOSPHORUS 3.7 mg/dL (2.5-4.9); POTASSIUM 4.2 mmol/L (3.5-5.1)
[2019-10-17 10:18] LABS: THYROID STIMULATING HORMONE 1.197 uIU/mL (0.358-3.74)
[2019-10-17] MEDS ORDERED: DEXTROSE 50%-WATER 50 ML DISP.SYRIN IV PRN (12:00)
[2019-10-17] MEDS ORDERED: Magnesium 1GM/D5W 100ML PREMIX PIGGYBACK IV ONE (12:00)
[2019-10-17] MEDS ORDERED: Magnesium 1GM/D5W 100ML PREMIX 100 ML IV SCH (12:00)
[2019-10-17] MEDS ORDERED: SILVER NITRATE APPLICATOR 1 EA BOX TP ONE (12:30)
[2019-10-17] MEDS: DAKINS QUARTER STRENGTH (0.125%) 480 ML BOTTLE TOP SCH (12:59)
[2019-10-17] MEDS: HYDROGEL DRESSING 90 GM TUBE TP SCH (12:59)
[2019-10-17] MEDS ORDERED: LIDOCAINE 2% 20 ML MDV TP ONE (13:00)
[2019-10-17] MEDS ORDERED: SILVER SULFADIAZINE 50 GM JAR TP PRN (15:00)
[2019-10-17] MEDS: HYDROCODONE/APAP 5/325MG 1 EACH TABLET PO PRN (15:47)
[2019-10-17 16:00] VITALS: BP 149/69
[2019-10-17] MEDS: METFORMIN 500 MG TABLET PO SCH (16:26)
[2019-10-17] MEDS: ENOXAPARIN SODIUM 40 MG/0.4 ML DISP.SYRIN SQ SCH ×2 (20:00→20:59)
[2019-10-17 20:37] VITALS: BP 142/68
[2019-10-17] MEDS: Z GUARD REMEDY 2 OZ OINT TP SCH (21:04)
[2019-10-18] MEDS: BLOOD SUGAR DIAGNOSTIC 1 EACH STRIP IN SCH ×4 (06:39→21:15)
[2019-10-18] MEDS: IV NS 0.9% 1,000 ML IV PRN ×2 (06:39→22:23)
[2019-10-18] MEDS: INSULIN REGULAR, HUMAN 100 UNIT/ML 3 ML VIAL SQ PRN ×4 (06:40→18:15)
[2019-10-18 08:00] VITALS: BP 136/70
[2019-10-18] MEDS: NICOTINE PATCH (14MG) 14 MG PATCH.TD24 TD SCH (09:00)
[2019-10-18] MEDS: LISINOPRIL (20MG) 20 MG TABLET PO SCH (09:20)
[2019-10-18] MEDS: PANTOPRAZOLE 40 MG TABLET.DR PO SCH (09:20)
[2019-10-18] MEDS: hydrALAZINE HCL 25 MG TABLET PO SCH ×3 (09:20→17:04)
[2019-10-18] MEDS: METFORMIN 500 MG TABLET PO SCH ×2 (09:20→17:05)
[2019-10-18] MEDS: AMLODIPINE BESYLATE 5 MG TABLET PO SCH (09:20)
[2019-10-18] MEDS: GABAPENTIN 300 MG CAPSULE PO SCH ×3 (09:20→21:15)
[2019-10-18] MEDS: FERROUS SULFATE (325 MG) 325 MG/TAB TABLET PO SCH (09:20)
[2019-10-18] MEDS: VANCOMYCIN 0.75 GM in IV D5W 250 ML IV SCH ×2 (09:21→21:14)
[2019-10-18] MEDS: DAKINS QUARTER STRENGTH (0.125%) 480 ML BOTTLE TOP SCH (09:24)
[2019-10-18] MEDS: Z GUARD REMEDY 2 OZ OINT TP SCH ×2 (09:25→21:15)
[2019-10-18] MEDS: HYDROGEL DRESSING 90 GM TUBE TP SCH (09:25)
[2019-10-18] MEDS: HYDROCODONE/APAP 5/325MG 1 EACH TABLET PO PRN ×2 (09:34→17:05)
[2019-10-18 13:24] LABS: CALCIUM, SERUM 8.8 mg/dL (8.5-10.1); CREATININE 1.3 mg/dL (0.6-1.3); POTASSIUM 4.7 mmol/L (3.5-5.1)
[2019-10-18 14:43] LABS: BASOPHILS # (AUTO) 0.1 /CMM (0.0-0.2); BASOPHILS % (AUTO) 0.6 % (0.0-2.0); EOSINOPHILS % (AUTO) 2.1 % (0.0-6.0); HEMATOCRIT 36 % (39-51); HEMOGLOBIN 10.9 g/dL (13.5-17.5); LYMPHOCYTES # (AUTO) 0.9 /CMM (0.8-4.8); LYMPHOCYTES % (AUTO) 10.4 % (20.0-44.0); MEAN CORPUSCULAR HGB CONC 31 g/dl (31.0-36.0); MEAN CORPUSCULAR VOLUME 85 fL (80-96); MONOCYTES # (AUTO) 0.8 /CMM (0.1-1.30); MONOCYTES % (AUTO) 8.6 % (2.0-12.0); NEUTROPHILS # (AUTO) 6.9 /CMM (1.8-8.9); NEUTROPHILS % (AUTO) 78.3 % (43.0-81.0); PLATELET COUNT (AUTO) 276 /CMM (150-450); RED BLOOD CELL COUNT(AUTO) 4.22 MIL/uL (4.5-6.0); WHITE BLOOD COUNT (AUTO) 8.8 K/uL (4.3-11.0)
[2019-10-18 16:00] VITALS: BP 172/76
[2019-10-18] MEDS ORDERED: SILVER SULFADIAZINE CREAM 25 GM TUBE TP PRN (17:00)
[2019-10-18] MEDS: ENOXAPARIN SODIUM 40 MG/0.4 ML DISP.SYRIN SQ SCH ×2 (19:58→20:00)
[2019-10-18 21:19] VITALS: BP 134/71
[2019-10-19] MEDS: BLOOD SUGAR DIAGNOSTIC 1 EACH STRIP IN SCH ×4 (06:35→21:29)
[2019-10-19 08:00] VITALS: BP 155/79
[2019-10-19] MEDS ORDERED: SILVER NITRATE APPLICATOR 1 EA BOX TP ONE (08:30)
[2019-10-19] MEDS ORDERED: LIDOCAINE 1%-EPI 1:100,000 50 ML VIAL IJ ONE (08:30)
[2019-10-19] MEDS: VANCOMYCIN 0.75 GM in IV D5W 250 ML IV SCH ×2 (08:47→20:40)
[2019-10-19] MEDS: GABAPENTIN 300 MG CAPSULE PO SCH ×3 (08:47→20:40)
[2019-10-19] MEDS: METFORMIN 500 MG TABLET PO SCH ×2 (08:48→16:44)
[2019-10-19] MEDS: AMLODIPINE BESYLATE 5 MG TABLET PO SCH (08:48)
[2019-10-19] MEDS: FERROUS SULFATE (325 MG) 325 MG/TAB TABLET PO SCH (08:48)
[2019-10-19] MEDS: LISINOPRIL (20MG) 20 MG TABLET PO SCH (08:49)
[2019-10-19] MEDS: hydrALAZINE HCL 25 MG TABLET PO SCH ×3 (08:50→16:45)
[2019-10-19] MEDS: NICOTINE PATCH (14MG) 14 MG PATCH.TD24 TD SCH (08:51)
[2019-10-19] MEDS: PANTOPRAZOLE 40 MG TABLET.DR PO SCH (08:52)
[2019-10-19] MEDS: HYDROGEL DRESSING 90 GM TUBE TP SCH (09:02)
[2019-10-19] MEDS: Z GUARD REMEDY 2 OZ OINT TP SCH ×2 (09:02→20:41)
[2019-10-19] MEDS: DAKINS QUARTER STRENGTH (0.125%) 480 ML BOTTLE TOP SCH (09:02)
[2019-10-19 09:25] LABS: BASOPHILS # (AUTO) 0.1 /CMM (0.0-0.2); BASOPHILS % (AUTO) 0.9 % (0.0-2.0); EOSINOPHILS % (AUTO) 2.1 % (0.0-6.0); HEMATOCRIT 24 % (39-51); HEMOGLOBIN 7.8 g/dL (13.5-17.5); LYMPHOCYTES % (AUTO) 10.9 % (20.0-44.0); MEAN CORPUSCULAR HGB CONC 33 g/dl (31.0-36.0); MEAN CORPUSCULAR VOLUME 82 fL (80-96); MONOCYTES # (AUTO) 0.6 /CMM (0.1-1.30); MONOCYTES % (AUTO) 7.4 % (2.0-12.0); NEUTROPHILS # (AUTO) 6.9 /CMM (1.8-8.9); NEUTROPHILS % (AUTO) 78.7 % (43.0-81.0); PLATELET COUNT (AUTO) 429 /CMM (150-450); RED BLOOD CELL COUNT(AUTO) 2.91 MIL/uL (4.5-6.0); WHITE BLOOD COUNT (AUTO) 8.8 K/uL (4.3-11.0)
[2019-10-19 09:37] LABS: CALCIUM, SERUM 8.6 mg/dL (8.5-10.1); CREATININE 1.1 mg/dL (0.6-1.3); POTASSIUM 4.6 mmol/L (3.5-5.1)
[2019-10-19] MEDS: HYDROCODONE/APAP 5/325MG 1 EACH TABLET PO PRN (13:28)
[2019-10-19 16:00] VITALS: BP 153/77
[2019-10-19] MEDS: IV NS 0.9% 1,000 ML IV PRN (16:44)
[2019-10-19] MEDS: INSULIN REGULAR, HUMAN 100 UNIT/ML 3 ML VIAL SQ PRN (16:54)
[2019-10-19] MEDS: ENOXAPARIN SODIUM 40 MG/0.4 ML DISP.SYRIN SQ SCH (20:00)
[2019-10-19] MEDS ORDERED: LEVOFLOXACIN (500MG) 500 MG TABLET PO SCH (20:00)
[2019-10-19 20:19] VITALS: BP 138/70
[2019-10-20] MEDS: BLOOD SUGAR DIAGNOSTIC 1 EACH STRIP IN SCH ×2 (06:26→12:22)
[2019-10-20 08:00] VITALS: BP 154/70
[2019-10-20] MEDS: VANCOMYCIN 0.75 GM in IV D5W 250 ML IV SCH (08:50)
[2019-10-20] MEDS: LISINOPRIL (20MG) 20 MG TABLET PO SCH (08:53)
[2019-10-20] MEDS: PANTOPRAZOLE 40 MG TABLET.DR PO SCH (08:53)
[2019-10-20] MEDS: METFORMIN 500 MG TABLET PO SCH (08:54)
[2019-10-20] MEDS: AMLODIPINE BESYLATE 5 MG TABLET PO SCH (08:54)
[2019-10-20] MEDS: hydrALAZINE HCL 25 MG TABLET PO SCH ×2 (08:54→12:30)
[2019-10-20] MEDS: FERROUS SULFATE (325 MG) 325 MG/TAB TABLET PO SCH (08:54)
[2019-10-20] MEDS: Z GUARD REMEDY 2 OZ OINT TP SCH (08:55)
[2019-10-20] MEDS: DAKINS QUARTER STRENGTH (0.125%) 480 ML BOTTLE TOP SCH (08:56)
[2019-10-20] MEDS: HYDROGEL DRESSING 90 GM TUBE TP SCH (08:57)
[2019-10-20] MEDS: NICOTINE PATCH (14MG) 14 MG PATCH.TD24 TD SCH (09:00)
[2019-10-20] MEDS: GABAPENTIN 300 MG CAPSULE PO SCH (10:29)
[2019-10-20] MEDS: HYDROCODONE/APAP 5/325MG 1 EACH TABLET PO PRN (10:30)
[2019-10-20] MEDS: INSULIN REGULAR, HUMAN 100 UNIT/ML 3 ML VIAL SQ PRN (12:29)
[2019-10-20 12:30] VITALS: BP 157/70
== END 2019-10-20 16:30 | disposition left against medical advice (07) | DRG 364 ==
LOC: ER 16:29 → MEDSG2 20:17
PROVIDERS: ADMIT Registered Nurse; ATTEND Nurse Practitioner Acute Care
DX: L03.317 Cellulitis of buttock (principal); E43 Unspecified severe protein-calorie malnutrition; L89.154 Pressure ulcer of sacral region, stage 4; D68.59 Other primary thrombophilia; E11.42 Type 2 diabetes mellitus with diabetic polyneuropathy; E11.51 Type 2 diabetes mellitus with diabetic peripheral angiopathy without gangrene; L89.313 Pressure ulcer of right buttock, stage 3; L89.896 Pressure-induced deep tissue damage of other site; E11.621 Type 2 diabetes mellitus with foot ulcer; E11.65 Type 2 diabetes mellitus with hyperglycemia; G82.20 Paraplegia, unspecified; E86.0 Dehydration; L89.323 Pressure ulcer of left buttock, stage 3; I48.91 Unspecified atrial fibrillation; S91.102A Unspecified open wound of left great toe without damage to nail, initial encounter; D72.829 Elevated white blood cell count, unspecified; Z68.22 Body mass index [BMI] 22.0-22.9, adult; X58.XXXA Exposure to other specified factors, initial encounter; Y92.89 Other specified places as the place of occurrence of the external cause; Z99.3 Dependence on wheelchair; D50.9 Iron deficiency anemia, unspecified; Z59.0 Homelessness; Z91.19 Patient's noncompliance with other medical treatment and regimen; F17.210 Nicotine dependence, cigarettes, uncomplicated; I10 Essential (primary) hypertension; R79.89 Other specified abnormal findings of blood chemistry; R62.7 Adult failure to thrive; L97.519 Non-pressure chronic ulcer of other part of right foot with unspecified severity; L97.529 Non-pressure chronic ulcer of other part of left foot with unspecified severity; Z86.14 Personal history of Methicillin resistant Staphylococcus aureus infection; E87.1 Hypo-osmolality and hyponatremia
CPT/HCPCS: 36415; 71045-TC; 72220-TC; 80048-TC; 80061-TC; 80076-TC; 80202-TC; 82962-TC; 83605-TC; 83735-TC; 84100-TC; 84443-TC; 85025-TC; 85730-TC; 87040-TC; 87070-TC; 87081-TC; 87186-TC; A6248; A6253; A6403; G0378; J1650; J1815; J2543; J3370; J3475; J3490; J7030; J7060

== ENCOUNTER 2020-01-19 10:46 | Inpatient (IN) | payer OTHER ==
[~2020-01-19] VITALS: Ht 172.7 cm; Wt 68.0 kg
[~2020-01-19 10:46] MED LIST changes: -CEPH-570 PO
--- NOTE | 2020-01-19 11:10 | NUR ---
[facility] PT ASKING FOR DIAPER CHANGE. HAS MALONE CATHETER IN PLACE FOR LAST 4 DAYS. WHEN ASKED WHY, STATES "I DON'T KNOW WHEN I'M PEEING". LIMITED MOVEMENT IN BLE, USES WHEELCHAIR. PT HAS NO OTHER MEDICAL COMPLAINTS AT THIS TIME. NO ACUTE DISTRESS NOTED. READY FOR EVAL.
--- NOTE | 2020-01-19 11:56 | NUR ---
PT PROVIDED FOOD TRAY
--- NOTE | 2020-01-19 12:10 | NUR ---
DEONNA GARCIA AT BEDSIDE
--- NOTE | 2020-01-19 13:01 | NUR ---
Social service consultation requested by MD for homelessness. Per MD notes, pt is a 64-year-old male who was brought to [facility] ED due to bystanders called 911 because pt was requesting diaper change. DEOILING MACHINE OPERATOR met with the pt bedside. DEOILING MACHINE OPERATOR is familiar with the pt. from several visits and admissions to [facility]. Pt is alert and oriented x 4. Pt is requesting to go to [facility], where he was residing. DEOILING MACHINE OPERATOR contacted rehabilitation caseworker Rosalind, who contacted [facility] and was told pt went to [facility] wound clinic and left AMA. [facility] is not going to accept pt back. Pt is paraplegic, wheelchair bound and incontinent with his bowel and bladder. Pt states he has several pressure ulcer sores making it difficult for him to sit on the toilet. Pt is requested SNF placement. DEOILING MACHINE OPERATOR consulted with Dr. Garcia regarding admitting pt for possible SNF placement. Pt is not deemed appropriate for retirement at this time. DEOILING MACHINE OPERATOR is available, if needed.
[2020-01-19] MEDS ORDERED: METF-440 PO (13:18)
--- NOTE | 2020-01-19 13:23 | NUR ---
PT RESTING COMFORTABLY IN BED. VSS. WILL CONT TO MONITOR.
--- NOTE | 2020-01-19 14:04 | NUR ---
LAB UNABLE TO DRAW BLOOD. AWARE
[2020-01-19 14:49] LABS: BASOPHILS # (AUTO) 0.1 /CMM (0.0-0.2); BASOPHILS % (AUTO) 0.4 % (0.0-2.0); EOSINOPHILS % (AUTO) 0.2 % (0.0-6.0); HEMATOCRIT 27 % (39-51); HEMOGLOBIN 8.6 g/dL (13.5-17.5); LYMPHOCYTES # (AUTO) 1.1 /CMM (0.8-4.8); LYMPHOCYTES % (AUTO) 5.7 % (20.0-44.0); MEAN CORPUSCULAR HGB CONC 32 g/dl (31.0-36.0); MEAN CORPUSCULAR VOLUME 83 fL (80-96); MONOCYTES # (AUTO) 1.1 /CMM (0.1-1.30); MONOCYTES % (AUTO) 6.1 % (2.0-12.0); NEUTROPHILS # (AUTO) 16.5 /CMM (1.8-8.9); NEUTROPHILS % (AUTO) 87.6 % (43.0-81.0); PLATELET COUNT (AUTO) 524 /CMM (150-450); RED BLOOD CELL COUNT(AUTO) 3.28 MIL/uL (4.5-6.0); WHITE BLOOD COUNT (AUTO) 18.8 K/uL (4.3-11.0)
[2020-01-19 15:05] LABS: CALCIUM, SERUM 8.9 mg/dL (8.5-10.1); CREATININE 1.7 mg/dL (0.6-1.3); POTASSIUM 4.9 mmol/L (3.5-5.1)
--- NOTE | 2020-01-19 15:29 | NUR ---
PAGED EPIC. ISRAEL GILBERT ON-CALL. AWAITNG FOR CALL BACK.
[2020-01-19] MEDS ORDERED: IV NS 0.9% 1,000 ML BAG IV ONE (15:30)
[2020-01-19] MEDS ORDERED: PIPERACILLIN /TAZOBACTAM 3.375 G in IV D5W 50 ML IV ONE (15:30)
[2020-01-19] MEDS ORDERED: VANCOMYCIN 1 GM in IV D5W 250 ML IV ONE (15:30)
[2020-01-19] MEDS ORDERED: IV NS 0.9% 500 ML IV ONE (15:30)
[2020-01-19] MEDS ORDERED: IV NS 0.9% 500 ML BAG IV ONE (15:30)
[2020-01-19] MEDS ORDERED: PIPERACILLIN /TAZOBACTAM 3.375 G VIAL IV ONE (15:50)
[2020-01-19] MEDS ORDERED: VANCOMYCIN 1 GM VIAL ONE (15:50)
--- NOTE | 2020-01-19 16:06 | NUR ---
CALLED NURSING SUP FOR M/S BED.
--- NOTE | 2020-01-19 16:12 | NUR ---
NURSING SUP GAVE 208-1.
[2020-01-19] MEDS ORDERED: MAG HYDROX/AL HYDROX/SIMETH 30 ML UDC PO PRN (16:30)
[2020-01-19] MEDS ORDERED: MAGNESIUM HYDROXIDE 30 ML UDC PO PRN (16:30)
[2020-01-19] MEDS ORDERED: ONDANSETRON HCL/PF 4 MG/2 ML VIAL IVP PRN (16:30)
[2020-01-19] MEDS ORDERED: HYDROCODONE/APAP 5/325MG 1 EACH TABLET PO PRN ×3 (16:30→18:00)
[2020-01-19] MEDS ORDERED: ACETAMINOPHEN 325 MG TABLET PO PRN (16:30)
[2020-01-19] MEDS ORDERED: Z GUARD REMEDY 2 OZ OINT TP PRN (16:30)
[2020-01-19] MEDS ORDERED: ZOLPIDEM TARTRATE 5 MG TABLET PO PRN (16:30)
--- NOTE | 2020-01-19 16:37 | NUR ---
LAB AT BEDSIDE
--- NOTE | 2020-01-19 16:45 | NUR ---
REPORT GIVEN FOR
[2020-01-19] MEDS ORDERED: FEE PK DOSING 1 MIN EA MC ONE (16:50)
--- NOTE | 2020-01-19 16:58 | NUR ---
NORCO 5-325 X2 PO GIVEN PER MD VERBAL ORDER.
--- NOTE | 2020-01-19 17:06 | NUR ---
[facility]
--- NOTE | 2020-01-19 17:20 | NUR ---
RECEIVED PATIENT FROM ER VIA GURNEY. PATIENT A/OX3-4, ABLE TO MAKE NEEDS KNOWN. NOT IN ANY FORM OF DISTRESS, NO SOB. DENIED PAIN OR DISCOMFORT AT THIS TIME. IV ACCESS ON RIGHT HAND GAUGE 20, LEFT AC GAUGE 20. SITUATED PATIENT IN THE ROOM. BELONGINGS CHECKED AND NOTED IT IN THE FORM. REFUSED SKIN ASSESSMENT AT THIS TIME, PER PATIENT "LET ME EAT FIRST, IM STARVING". KEPT PATIENT SAFE AND COMFORTABLE. BED IN LOW/LOCKED POSITON, SIDERAILS UP, CALL LIGHT IN REACH. WILL CONT TO MONITOR ACCORDINGLY.
[2020-01-19 17:25] VITALS: BP 168/90
[2020-01-19] MEDS ORDERED: DEXTROSE 50%-WATER 50 ML DISP.SYRIN IV PRN (17:30)
[2020-01-19] MEDS: BLOOD SUGAR DIAGNOSTIC 1 EACH STRIP IN SCH ×2 (17:37→21:06)
[2020-01-19] MEDS: DOCUSATE SODIUM 100 MG CAPSULE PO SCH (17:37)
[2020-01-19] MEDS: hydrALAZINE HCL 25 MG TABLET PO SCH (17:38)
[2020-01-19] MEDS ORDERED: GABAPENTIN 300 MG CAPSULE PO SCH (18:00)
--- NOTE | 2020-01-19 19:18 | NUR ---
rn closing notes patient in stable condition. all needs attended and provided. all due medications given as ordered. bed in low/locked position, call light in reach, siderails up, bed alarm on. endorsed accordingly.
--- NOTE | 2020-01-19 19:20 | NUR ---
MS RN NOTES: RECEIVED PATIENT Patient in bed, awake. Tolerating room air, denies shortness of breath. BLE wound, denies pain. Fall, Skin precaution maintained.
[2020-01-19 20:30] VITALS: BP 158/78
[2020-01-19 20:36] VITALS: BP 158/79
[2020-01-19] MEDS: IV 1/2NS 1000 ML 1,000 ML IV PRN (21:01)
[2020-01-19] MEDS: HEPARIN SODIUM, PORCINE 5000 UNITS/1 ML VIAL SQ SCH (21:08)
[2020-01-19] MEDS: INSULIN REGULAR, HUMAN 100 UNIT/ML 3 ML VIAL SQ PRN (21:52)
--- NOTE | 2020-01-19 21:52 | NUR ---
MS RN NOTES: PATIENT REFUSED INSULIN Patient refused insulin injection dose, BS 169mg/dl. Education provided to patient, risk and benefits explained.
[2020-01-19] MEDS: GABAPENTIN 300 MG CAPSULE PO SCH (21:53)
[2020-01-20] MEDS: VANCOMYCIN 1 GM in IV D5W 250 ML IV SCH ×2 (04:30→17:17)
[2020-01-20] MEDS: PIPERACILLIN /TAZOBACTAM 3.375 G in IV D5W 50 ML IV SCH ×5 (05:50→19:35)
[2020-01-20] MEDS: BLOOD SUGAR DIAGNOSTIC 1 EACH STRIP IN SCH ×4 (06:41→22:00)
--- NOTE | 2020-01-20 07:17 | NUR ---
MS RN: REPORT Patient in bed, stable on room air. IVF infusing, IV antibiotic as scheduled, afebrile overnight. Sacral, BLE wounds, wound consult to follow. Wound cx G/S sacral specimen, and Urine send to lab for test. Patient with angry and irritable behavior during hygiene, refused covering BLE wound with Mepilex foam, education provided but declined. Uncooperative with repositioning and turning to offload wounds. Fall precaution maintained. Homeless, SW/CM to follow.
[2020-01-20] MEDS: INSULIN REGULAR, HUMAN 100 UNIT/ML 3 ML VIAL SQ PRN ×2 (07:29→12:40)
--- NOTE | 2020-01-20 07:30 | NUR ---
MS RN NOTES: PATIENT REFUSED INSULIN Patient refused insulin injection dose, BS 235mg/dl. Education provided to patient, risk and benefits explained but declined education.
[2020-01-20 08:00] VITALS: BP 102/58
--- NOTE | 2020-01-20 08:00 | NUR ---
MS RN OPENING NOTES Received Patient asleep and resting in bed. A/O x 4. VS stable with no acute distress. Breathing even and unlabored on room air with no respiratory distress. No signs and symptoms of pain. Cramer Cath in place and patent. 20g PIV on BINTA clean, intact, patent and flushing well. 20g PIV on Right Hand clean, intact, patent and flushing well. Safety precautions in place. Bed locked and set to lowest position with side rails x 2 up. All needs rendered at this time. Call light within reach. Will continue to monitor.
[2020-01-20] MEDS: hydrALAZINE HCL 25 MG TABLET PO SCH ×3 (09:00→17:19)
[2020-01-20] MEDS: HEPARIN SODIUM, PORCINE 5000 UNITS/1 ML VIAL SQ SCH ×2 (09:00→22:03)
[2020-01-20] MEDS ORDERED: GABAPENTIN 300 MG CAPSULE PO SCH (09:00)
[2020-01-20] MEDS: PANTOPRAZOLE 40 MG TABLET.DR PO SCH (09:27)
[2020-01-20] MEDS: DOCUSATE SODIUM 100 MG CAPSULE PO SCH ×2 (09:27→17:19)
[2020-01-20] MEDS: GABAPENTIN 300 MG CAPSULE PO SCH ×3 (09:27→22:05)
[2020-01-20] MEDS: FERROUS SULFATE (325 MG) 325 MG/TAB TABLET PO SCH (09:27)
[2020-01-20] MEDS: LISINOPRIL (20MG) 20 MG TABLET PO SCH (09:28)
[2020-01-20] MEDS: AMLODIPINE BESYLATE 5 MG TABLET PO SCH (09:28)
[2020-01-20 10:38] LABS: ALBUMIN 1.6 g/dL (3.4-5.0); BILIRUBIN,DIRECT 0.2 mg/dL (0.0-0.2); BILIRUBIN,TOTAL 0.4 mg/dL (0.2-1.0); CALCIUM, SERUM 8.3 mg/dL (8.5-10.1); CREATININE 1.7 mg/dL (0.6-1.3); MAGNESIUM 1.8 mg/dL (1.8-2.4); PHOSPHORUS 3.1 mg/dL (2.5-4.9); TOTAL PROTEIN, SERUM 6.1 g/dL (6.4-8.2)
[2020-01-20 10:43] LABS: THYROID STIMULATING HORMONE 1.46 uIU/mL (0.358-3.74)
[2020-01-20 10:51] LABS: BASOPHILS # (AUTO) 0.1 /CMM (0.0-0.2); BASOPHILS % (AUTO) 0.8 % (0.0-2.0); HEMATOCRIT 24 % (39-51); HEMOGLOBIN 7.4 g/dL (13.5-17.5); LYMPHOCYTES # (AUTO) 0.9 /CMM (0.8-4.8); LYMPHOCYTES % (AUTO) 7.4 % (20.0-44.0); MEAN CORPUSCULAR HGB CONC 31 g/dl (31.0-36.0); MEAN CORPUSCULAR VOLUME 84 fL (80-96); MONOCYTES # (AUTO) 0.9 /CMM (0.1-1.30); MONOCYTES % (AUTO) 7.3 % (2.0-12.0); NEUTROPHILS % (AUTO) 83.5 % (43.0-81.0); PLATELET COUNT (AUTO) 411 /CMM (150-450); RED BLOOD CELL COUNT(AUTO) 2.84 MIL/uL (4.5-6.0)
--- NOTE | 2020-01-20 12:44 | NUR ---
MS RN NOTES Patient refusing tx on BLE. Patient in stable condition. Will continue to monitor.
[2020-01-20 16:00] VITALS: BP 169/75
[2020-01-20] MEDS: IV 1/2NS 1000 ML 1,000 ML IV PRN (17:17)
--- NOTE | 2020-01-20 18:19 | NUR ---
MS RN NOTES Patient positive for MRSA in the nares. Notified Burke STRAIGHT CUTTER MACHINE. Per STRAIGHT CUTTER MACHINE, Bactroban to both nares q12h. Order noted and carried out. Will continue to monitor.
[2020-01-20 18:51] LABS: CREATININE, URINE 52.4 MG/DL (30.0-125.0); URINE TOTAL PROTEIN 134.9 mg/dL (0-11.9)
[2020-01-20 19:00] LABS: APPEARANCE,URINE CLEAR (CLEAR); BILIRUBIN,URINE NEGATIVE (NEGATIVE); BLOOD, URINE TRACE-INTA Ery/uL (NEGATIVE); COLOR,URINE YELLOW (YELLOW); KETONES,URINE NEGATIVE (NEGATIVE); LEUKOCYTE ESTERASE ,URINE NEGATIVE (NEGATIVE); NITRITE, URINE NEGATIVE (NEGATIVE); PH,URINE 5.5 (5.0-8.0); PROTEIN,URINE 100 mg/dl (NEGATIVE); UGLUCOSE 100 MG/DL mg/dL (NEGATIVE); UROBILINOGEN,URINE 0.2 EU/dL (0.2)
[2020-01-20 19:10] LABS: BACTERIA,URINE Rare /HPF (None Seen); SQUAMOUS EPITHELIAL CELL,UR Few /HPF (None Seen); URIC ACID CRYSTALS,URINE Moderate /HPF (None Seen); WBC,URINE 0-2 /HPF (0-3)
--- NOTE | 2020-01-20 19:22 | NUR ---
MS RN CLOSING NOTES Patient awake and resting in bed. A/O x 2-3 with episodes of confusion. VS stable with no acute distress. Breathing even and unlabored on room air with no respiratory distress. No signs and symptoms of pain. Cramer Cath in place and patent. 22g PIV on RFA clean, intact, patent and flushing well with NS infusing at 75ml/hr. Isolation precautions in place. Safety precautions in place. Bed locked and set to lowest position with side rails x 2 up. All needs rendered at this time. Call light within reach. Will endorse plan of care to oncoming shift.
--- NOTE | 2020-01-20 19:23 | NUR ---
MS RN OPENING NOTES Received patient A/O x2, awake on bed watching TV. Pt denies any discomfort at this time. With indwelling FC with clear yellow urine output noted. Discussed with patient the POC. Kept on bed clean, dry and comfortable. Call light within easy reach. Will continue to monitor accordingly.
[2020-01-20 20:58] LABS: EOSINOPHIL,URINE None Seen
[2020-01-20] MEDS: MUPIROCIN OINT 2% 22 GM TUBE SCH (21:00)
[2020-01-20 23:01] VITALS: BP 132/65
[2020-01-21] MEDS: PIPERACILLIN /TAZOBACTAM 3.375 G in IV D5W 50 ML IV SCH ×4 (00:22→18:08)
--- NOTE | 2020-01-21 03:58 | NUR ---
MS RN NOTES Patient refused blood draw for vanco trough despite education provided. Patient uncooperative and just ignoring the nurse and lab techs. housecalls nurse MD notified. Awaiting for orders at this time.
[2020-01-21] MEDS: VANCOMYCIN 1 GM in IV D5W 250 ML IV SCH (04:05)
--- NOTE | 2020-01-21 04:05 | NUR ---
MS RN NOTES Per Dr. Abrams, hold Vanco dose now.
--- NOTE | 2020-01-21 06:36 | NUR ---
MS RN CLOSING NOTES Patient asleep, easily awaken. On RA, no SOB/respiratory distress noted. No complaints made at this time. All nursing needs attended. Kept on bed clean, dry and comfortable. On fall and aspiration precautions. Call light within easy reach. Endorsed.
[2020-01-21 08:00] VITALS: BP 135/71
--- NOTE | 2020-01-21 08:00 | NUR ---
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 SAFETY PRECAUTION MAINTAINED ALL THE TIME.
[2020-01-21] MEDS: BLOOD SUGAR DIAGNOSTIC 1 EACH STRIP IN SCH ×4 (08:34→22:25)
[2020-01-21] MEDS: INSULIN REGULAR, HUMAN 100 UNIT/ML 3 ML VIAL SQ PRN ×3 (09:00→22:35)
[2020-01-21] MEDS: MUPIROCIN OINT 2% 22 GM TUBE SCH ×2 (09:00→22:32)
[2020-01-21] MEDS: HEPARIN SODIUM, PORCINE 5000 UNITS/1 ML VIAL SQ SCH ×2 (09:00→21:00)
[2020-01-21] MEDS: GABAPENTIN 300 MG CAPSULE PO SCH ×3 (09:01→22:26)
[2020-01-21] MEDS: FERROUS SULFATE (325 MG) 325 MG/TAB TABLET PO SCH (09:01)
[2020-01-21] MEDS: LISINOPRIL (20MG) 20 MG TABLET PO SCH (09:01)
[2020-01-21] MEDS: DOCUSATE SODIUM 100 MG CAPSULE PO SCH ×2 (09:01→17:08)
[2020-01-21] MEDS: PANTOPRAZOLE 40 MG TABLET.DR PO SCH (09:02)
[2020-01-21] MEDS: AMLODIPINE BESYLATE 5 MG TABLET PO SCH (09:02)
[2020-01-21] MEDS: hydrALAZINE HCL 25 MG TABLET PO SCH ×3 (09:02→17:08)
[2020-01-21] MEDS: IV 1/2NS 1000 ML 1,000 ML IV PRN (11:48)
[2020-01-21 13:59] LABS: BASOPHILS # (AUTO) 0.1 /CMM (0.0-0.2); BASOPHILS % (AUTO) 0.6 % (0.0-2.0); EOSINOPHILS % (AUTO) 1.7 % (0.0-6.0); LYMPHOCYTES # (AUTO) 0.9 /CMM (0.8-4.8); LYMPHOCYTES % (AUTO) 7.8 % (20.0-44.0); MEAN CORPUSCULAR HGB CONC 32 g/dl (31.0-36.0); MEAN CORPUSCULAR VOLUME 84 fL (80-96); MONOCYTES # (AUTO) 0.9 /CMM (0.1-1.30); MONOCYTES % (AUTO) 7.5 % (2.0-12.0); NEUTROPHILS % (AUTO) 82.4 % (43.0-81.0); PLATELET COUNT (AUTO) 386 /CMM (150-450); RED BLOOD CELL COUNT(AUTO) 2.63 MIL/uL (4.5-6.0); WHITE BLOOD COUNT (AUTO) 12.2 K/uL (4.3-11.0)
[2020-01-21 14:08] LABS: CALCIUM, SERUM 8.3 mg/dL (8.5-10.1); CREATININE 1.5 mg/dL (0.6-1.3); POTASSIUM 4.2 mmol/L (3.5-5.1)
[2020-01-21 15:35] LABS: HEMATOCRIT 22 % (39-51)
--- NOTE | 2020-01-21 15:45 | NUR ---
RN NOTES GET CALL FROM LAB Hgb-7.O, Hct 22, NOTIFIED HOSPITALIST ISRAEL GILBERT ORDER IS MONITOR, HOSPITALIST WILL FOLLOW IN AM. CONTINUED MONITORING, ASSIST TURN AND REPOSTION Q 2 HR. CALL LIGHT WITHIN TO REACH. CONTINUED MONITORING.
[2020-01-21 16:00] VITALS: BP 131/82
--- NOTE | 2020-01-21 17:00 | NUR ---
RN NOTES GET CALL FROM LAB PATIENT BLOOD CULTURE GRAM POSITIVE COCCI IN IN CLUSTER.
[2020-01-21] MEDS: VANCOMYCIN 0.75 GM in IV D5W 250 ML IV SCH (17:05)
--- NOTE | 2020-01-21 19:25 | NUR ---
rn notes ADMINISTERED NARCO 5/325 MG PO PRN FOR GENERALIZED PAIN 05/17, PATIENT STABLE V/S WNL, ASSIST TURN AND REPOSTION Q 2 HR, FOLLY CATHETER DRAINING LIGHT YELLOW OUTCOME. ADMINISTERED SCHEDULED MEDICATION, INFUSING ZOSYN 100 ML/HR ON RIGHT FA INTACT. ENDORSED ONCOMING NURSE FOLLOW PLAN OF CARE.
[2020-01-21 20:00] VITALS: BP 147/63
--- NOTE | 2020-01-21 20:56 | NUR ---
MS RN NOTES RECEIVED PATIENT AWAKE IN BED WITH NO DISTRESS NOTED. CALL LIGHT WITHIN REACH. NO C/O PAIN OR DISCOMFORT. PERIPHERAL LINE INTACT AND PATENT. ENCOURAGED USE OF CALL LIGHT FOR ASSISTANCE AND VERBALIZED GOOD UNDERSTANDING. CONTACT ISOLATION OBSERVED AND MAINTAINED AT ALL TIMES. ROOM FREE OF CLUTTER AND BELONGINGS KEPT NEAR BEDSIDE. BED IN LOW LOCK SETTING WITH BED ALARM ON AND FUNCTIONING PROPERLY. WILL CONTINUE TO MONITOR
[2020-01-22] MEDS: PIPERACILLIN /TAZOBACTAM 3.375 G in IV D5W 50 ML IV SCH ×4 (00:52→18:13)
[2020-01-22] MEDS: VANCOMYCIN 0.75 GM in IV D5W 250 ML IV SCH (04:19)
[2020-01-22] MEDS: IV 1/2NS 1000 ML 1,000 ML IV PRN ×2 (04:20→21:19)
--- NOTE | 2020-01-22 06:20 | NUR ---
MS RN NOTES PATIENT ASLEEP IN BED WITH NO DISTRESS NOTED. CALL LIGHT WITHIN REACH. PATIENT REFUSED SKIN TX/PICTURES, AM LABS, AND AM ACCU CHECK DESPITE CONTINUED ENCOURAGEMENT AND EXPLANATION OF RISKS/BENEFITS. ALL DUE IV ATB GIVEN ORDERED WITH NO ASE. NO FURTHER C/O PAIN OR DISCOMFORT. PERIPHERAL LINE INTACT AND PATENT. CONTACT ISOLATION OBSERVED AND MAINTAINED AT ALL TIMES. BED IN LOW LOCK SETTING. ALL BELONGINGS KEPT NEAR BEDSIDE. WILL ENDORSE TO ONCOMING SHIFT.
[2020-01-22 07:21] LABS: PTH, INTACT 19 pg/mL (15-65)
[2020-01-22 08:00] VITALS: BP 150/75
--- NOTE | 2020-01-22 08:00 | NUR ---
RN NOTES RECEIVED PATIENT IN THE BED MRSA OF NARES, AND WOUND, TOTAL CARE, NO ACUTE RESPIRATORY DISTRESS, V/S WNL, BS-139 MG/DL COVERAGE GIVEN. PATIENT TOTAL CARE, WOUNDS SACRAL, AND BLE, INFUSING 1/2 NS AT 75 ML/HR ON RIGHT FA INTACT, MALONE CATHETER DRAINING LIGHT YELLOW OUTPUT, ASSIST TURN AND REPOSTION Q 2HR, CALL LIGHT WITHIN TO REACH, PATIENT WAS COMPLAINING OF PAIN 5/10 GENERALIZED. TOLERATED BREAKFAST WELL. SAFETY PRECAUTION MAINTAINED ALL THE TIME.
[2020-01-22] MEDS: HEPARIN SODIUM, PORCINE 5000 UNITS/1 ML VIAL SQ SCH ×3 (09:00→21:00)
--- NOTE | 2020-01-22 09:00 | NUR ---
RN NOTES SEEN PATIENT WOUND MD, AND WOUND PA BLE DEBRIDEMENT DONE, PATIENT SIGN CONSENT FORM, ALSO SCHEDULED SACRAL WOUND DEBRIDEMENT TOMORROW. PER MD PATIENT NEED ISOFLEX BED.
[2020-01-22] MEDS: DOCUSATE SODIUM 100 MG CAPSULE PO SCH ×2 (09:26→17:00)
[2020-01-22] MEDS: GABAPENTIN 300 MG CAPSULE PO SCH ×3 (09:26→21:08)
[2020-01-22] MEDS: AMLODIPINE BESYLATE 5 MG TABLET PO SCH (09:26)
[2020-01-22] MEDS: hydrALAZINE HCL 25 MG TABLET PO SCH ×3 (09:27→18:10)
[2020-01-22] MEDS: FERROUS SULFATE (325 MG) 325 MG/TAB TABLET PO SCH (09:27)
[2020-01-22] MEDS: BLOOD SUGAR DIAGNOSTIC 1 EACH STRIP IN SCH ×4 (09:27→21:09)
[2020-01-22] MEDS: LISINOPRIL (20MG) 20 MG TABLET PO SCH (09:27)
[2020-01-22] MEDS: MUPIROCIN OINT 2% 22 GM TUBE SCH ×2 (09:28→21:26)
[2020-01-22] MEDS: PANTOPRAZOLE 40 MG TABLET.DR PO SCH (09:33)
[2020-01-22] MEDS: INSULIN REGULAR, HUMAN 100 UNIT/ML 3 ML VIAL SQ PRN ×3 (09:34→21:07)
[2020-01-22 10:07] LABS: *SPE A/G RATIO 0.5 (0.7-1.7); *SPE ALBUMIN 1.8 g/dL (2.9-4.4); *SPE ALPHA-1-GLOBULIN 0.4 g/dL (0.0-0.4); *SPE ALPHA-2-GLOBULIN 0.8 g/dL (0.4-1.0); *SPE GLOBULIN, TOTAL 3.4 g/dL (2.2-3.9); *SPE M-SPIKE Not Observed g/dL (Not Observed); *SPEGAMMA GLOBULIN 1.1 g/dL (0.4-1.8)
[2020-01-22] MEDS ORDERED: LIDOCAINE 1%-EPI 1:100,000 50 ML VIAL IJ ONE (12:00)
[2020-01-22] MEDS ORDERED: SILVER NITRATE APPLICATOR 1 EA BOX TP ONE (12:00)
--- NOTE | 2020-01-22 12:00 | NUR ---
RN NOTES BS-141 MG/DL COVERAGE GIVEN, PATIENT WAS COMPLAINING OF GENERALIZED PAIN, CALLED HOSPITALIST FOR ORDER, INFUSING ZOSYN 100 ML/HR INTACT, CALL LIGHT WITHIN TO REACH, ASSIST TURN AND REPOSTION Q 2 HR, V/S TAKEN BP 149/78, P-90.
[2020-01-22 12:01] LABS: BASOPHILS # (AUTO) 0.1 /CMM (0.0-0.2); BASOPHILS % (AUTO) 0.6 % (0.0-2.0); EOSINOPHILS % (AUTO) 2.8 % (0.0-6.0); HEMATOCRIT 25 % (39-51); HEMOGLOBIN 8.2 g/dL (13.5-17.5); LYMPHOCYTES % (AUTO) 12.1 % (20.0-44.0); MEAN CORPUSCULAR HGB CONC 33 g/dl (31.0-36.0); MEAN CORPUSCULAR VOLUME 82 fL (80-96); MONOCYTES # (AUTO) 0.6 /CMM (0.1-1.30); MONOCYTES % (AUTO) 6.8 % (2.0-12.0); NEUTROPHILS # (AUTO) 6.4 /CMM (1.8-8.9); NEUTROPHILS % (AUTO) 77.7 % (43.0-81.0); PLATELET COUNT (AUTO) 464 /CMM (150-450); RED BLOOD CELL COUNT(AUTO) 3.08 MIL/uL (4.5-6.0); WHITE BLOOD COUNT (AUTO) 8.2 K/uL (4.3-11.0)
[2020-01-22 12:02] LABS: CALCIUM, SERUM 8.4 mg/dL (8.5-10.1); CREATININE 1.4 mg/dL (0.6-1.3); POTASSIUM 4.2 mmol/L (3.5-5.1)
--- NOTE | 2020-01-22 12:26 | NUR ---
WOUND CARE CONSULT WOUND CARE RECEIVED CONSULT FOR DEEP SACRAL AND BUTTOCK DECUBITUS, BILATERAL HEEL DECUBITUS. WOUND CARE WILL DEFER CONSULT AND ALL TREATMENT PLANS TO PLASTIC SURGICAL TEAM INCLUDING DPNura MONTALVO WHO ARE CURRENTLY FOLLOWING THIS PATIENT. PATIENT WITH ADRIANNA AT 14, ALL PRESSURE ULCER PREVENTION MEASURES ARE NOTED TO BE IN PLACE. WILL SEE PRN.
[2020-01-22 13:00] VITALS: BP 149/78
[2020-01-22] MEDS ORDERED: SILVER SULFADIAZINE 50 GM JAR TP PRN (13:00)
[2020-01-22] MEDS: DAKINS QUARTER STRENGTH (0.125%) 480 ML BOTTLE TOP SCH (13:13)
[2020-01-22] MEDS: HYDROCODONE/APAP 10/325MG 1 EA TABLET PO PRN (14:27)
--- NOTE | 2020-01-22 14:27 | NUR ---
RN NOTES ADMINISTERED NARCO 10/325 MG PO PRN FOR GENERALIZED PAIN 06/17, V/S TAKEN BP 146/76, P-88, CONTINUED MONITORING.
[2020-01-22 16:00] VITALS: BP 150/75
[2020-01-22] MEDS: MORPHINE SULFATE INJ 2 MG/ML DISP.SYRIN IV PRN (18:15)
--- NOTE | 2020-01-22 18:15 | NUR ---
RN NOTES ADMINISTERED MORPHINE SULFATE 2 MG/ML IV PUSH FOR GENERALIZED PAIN 06/17 PER PATIENT REQUEST, V/S TAKEN BP 156/78, P-88, ALSO ADMINISTERED SCHEDULED MEDICATION, PATIENT REFUSED ISOFLEX BED, OFFERED X3 STILL REFUSED.EXPLAINED PATIENT IMPORTANT OF BED BECAUSE WILL HELP HEALING PROCESS. CHARGE NURSE PRINCESS AWARE OF, ALSO WILL NOTIFY MD, AND WOUND NURSE DONNIE ABOUT REFUSAL TO EXPLAIN PATIENT AGAIN. CALL LIGHT LIGHT WITHIN TO REACH. ENDORSED ONCOMING NURSE FOLLOW UP PLAN OF CARE.
[2020-01-22] MEDS: VITAMINS A AND D 56.7 GM TUBE TP SCH (18:16)
--- NOTE | 2020-01-22 18:50 | NUR ---
RN NOTES MEDICATION WERE ADMINISTERED FOR PAIN EFFECTIVE, V/S STABLE, ALSO ADMINISTERED SCHEDULED MEDICATION. INFUSING ZOSYN ON RIGHT FA INTACT, ASSIST TURN AND REPOSTION Q 2HR. CALL LIGHT WITHIN TO REACH. ENDORSED ONCOMING NURSE FOLLOW PLAN OF CARE.
--- NOTE | 2020-01-22 20:02 | NUR ---
MS2/RN RECEIVED PATIENT ON BED AWAKE, ALERT ORIENTED, COMFORTABLE, NO DISTRESS NOTED, CALL LIGHT IN REACH, OFFERED TO CHANGE THE BED TO ISOFLEX BED BUT PATIENT REFUSED. WILL MONITOR.
[2020-01-22 21:17] VITALS: BP 158/78
[2020-01-23] MEDS: PIPERACILLIN /TAZOBACTAM 3.375 G in IV D5W 50 ML IV SCH ×4 (00:17→18:47)
--- NOTE | 2020-01-23 00:32 | NUR ---
MS2/RN PATIENT IS AWAKE, OFFERED TO TURN BUT PATIENT REFUSED AND GOT UPSET "WHY ARE YOU WAKING ME UP?", HE SAID, I TOLD HIM THAT HE NEEDS TO TURN AT THIS TIME, TRIED TO EDUCATE HIM ABOUT TURNING AND SKIN, BUT PATIENT BECAME MORE UPSET "WHEN YOU COME HERE JUST DO THE THING THAT YOU NEED TO DO, DON'T BOTHER ME".
--- NOTE | 2020-01-23 06:49 | NUR ---
MS/RN PATIENT IS STILL SLEEPING AT THIS TIME, APPEAR COMFORTABLE, NO SIGNS OF DISTRESS NOTED, CALL LIGHT IN REACH, ALL NEEDS ATTENDED AT THIS TIME, WILL CONTINUE TO MONITOR.
[2020-01-23] MEDS: BLOOD SUGAR DIAGNOSTIC 1 EACH STRIP IN SCH ×4 (06:58→22:23)
[2020-01-23] MEDS: INSULIN REGULAR, HUMAN 100 UNIT/ML 3 ML VIAL SQ PRN ×4 (07:00→22:25)
[2020-01-23] MEDS: PANTOPRAZOLE 40 MG TABLET.DR PO SCH ×2 (07:30→08:45)
[2020-01-23 08:00] VITALS: BP 150/77
--- NOTE | 2020-01-23 08:00 | NUR ---
RN NOTES RECEIVED PATIENT IN THE BED, PATIENT A/O X3, WITH AVERY ALTITUDE, SELECTIVE WITH MEDICATION, MRSA OF NARES, AND WOUND, TOTAL CARE, NO ACUTE RESPIRATORY DISTRESS, V/S WNL, PATIENT TOTAL CARE, WOUNDS SACRAL, AND BLE, DRESSING CHANED AND ELVATED USING PILLOWS,INFUSING 1/2 NS AT 75 ML/HR ON RIGHT FA INTACT, MALONE CATHETER DRAINING LIGHT YELLOW OUTPUT, ASSIST TURN AND REPOSTION Q 2HR, CALL LIGHT WITHIN TO REACH, PATIENT REFUSED PAIN AT THIS TIME. TOLERATED BREAKFAST WELL. SAFETY PRECAUTION MAINTAINED ALL THE TIME.
[2020-01-23 08:04] LABS: CREATININE, URINE 48.3 MG/DL (30.0-125.0); URINE TOTAL PROTEIN 125.9 mg/dL (0-11.9)
[2020-01-23] MEDS: LISINOPRIL (20MG) 20 MG TABLET PO SCH (08:45)
[2020-01-23] MEDS: AMLODIPINE BESYLATE 5 MG TABLET PO SCH (08:46)
[2020-01-23] MEDS: FERROUS SULFATE (325 MG) 325 MG/TAB TABLET PO SCH ×2 (08:46→09:00)
[2020-01-23] MEDS: DOCUSATE SODIUM 100 MG CAPSULE PO SCH ×2 (08:46→17:00)
[2020-01-23] MEDS: hydrALAZINE HCL 25 MG TABLET PO SCH ×3 (08:46→18:49)
[2020-01-23] MEDS: SILVER SULFADIAZINE CREAM 25 GM TUBE TP PRN (08:52)
[2020-01-23] MEDS: DAKINS QUARTER STRENGTH (0.125%) 480 ML BOTTLE TOP SCH (08:54)
[2020-01-23] MEDS: MUPIROCIN OINT 2% 22 GM TUBE SCH ×2 (08:54→22:34)
[2020-01-23] MEDS: VITAMINS A AND D 56.7 GM TUBE TP SCH ×2 (08:55→18:51)
[2020-01-23] MEDS: HEPARIN SODIUM, PORCINE 5000 UNITS/1 ML VIAL SQ SCH ×2 (09:00→21:00)
[2020-01-23 09:46] LABS: APPEARANCE,URINE SL CLOUDY (CLEAR); BILIRUBIN,URINE NEGATIVE (NEGATIVE); BLOOD, URINE NEGATIVE Ery/uL (NEGATIVE); KETONES,URINE NEGATIVE (NEGATIVE); LEUKOCYTE ESTERASE ,URINE NEGATIVE (NEGATIVE); NITRITE, URINE NEGATIVE (NEGATIVE); PROTEIN,URINE 100 mg/dl (NEGATIVE); UGLUCOSE NEGATIVE (NEGATIVE); UROBILINOGEN,URINE 0.2 EU/dL (0.2)
[2020-01-23 09:47] LABS: COLOR,URINE STRAW (YELLOW)
[2020-01-23] MEDS: GABAPENTIN 300 MG CAPSULE PO SCH ×3 (10:41→22:26)
[2020-01-23 12:06] LABS: BACTERIA,URINE Rare /HPF (None Seen); RBC,URINE 0-2 /HPF (0-2); WBC,URINE 0-2 /HPF (0-3)
[2020-01-23 12:07] LABS: SQUAMOUS EPITHELIAL CELL,UR 0-2 /HPF (None Seen); URINE AMORPHOUS URATE Few /HPF (None Seen)
[2020-01-23 12:12] LABS: EOSINOPHIL,URINE None Seen
[2020-01-23] MEDS: IV 1/2NS 1000 ML 1,000 ML IV PRN (12:26)
[2020-01-23 12:32] VITALS: BP 183/86
[2020-01-23] MEDS: MORPHINE SULFATE INJ 2 MG/ML DISP.SYRIN IV PRN (13:05)
[2020-01-23] MEDS ORDERED: LIDOCAINE 1%-EPI 1:100,000 20 ML VIAL TP STA ×2 (13:05→13:32)
--- NOTE | 2020-01-23 13:05 | NUR ---
rn notes ADMINISTERED MORPHINE SULFATE 2 MG/ML IV PUSH FOR SACRAL PAIN 06/17 PER PATIENT REQUEST, V/S TAKEN BP 156/78, P=83. PATIENT GETTING ALSO DEBRIDEMENT DONE SACRAL, AND LEFT AND RIGHT ISCHIAL AREAS VIA FOTADIOS PA. CONTINUED MONITORING.
[2020-01-23 16:00] VITALS: BP 168/71
[2020-01-23 16:04] LABS: BASOPHILS # (AUTO) 0.1 /CMM (0.0-0.2); BASOPHILS % (AUTO) 1.3 % (0.0-2.0); EOSINOPHILS % (AUTO) 2.5 % (0.0-6.0); HEMATOCRIT 23 % (39-51); HEMOGLOBIN 7.5 g/dL (13.5-17.5); LYMPHOCYTES # (AUTO) 1.1 /CMM (0.8-4.8); MEAN CORPUSCULAR HGB CONC 32 g/dl (31.0-36.0); MEAN CORPUSCULAR VOLUME 82 fL (80-96); MONOCYTES # (AUTO) 0.5 /CMM (0.1-1.30); NEUTROPHILS # (AUTO) 6.7 /CMM (1.8-8.9); NEUTROPHILS % (AUTO) 77.2 % (43.0-81.0); PLATELET COUNT (AUTO) 504 /CMM (150-450); RED BLOOD CELL COUNT(AUTO) 2.83 MIL/uL (4.5-6.0); WHITE BLOOD COUNT (AUTO) 8.6 K/uL (4.3-11.0)
[2020-01-23 16:14] LABS: CALCIUM, SERUM 8.2 mg/dL (8.5-10.1); CREATININE 1.4 mg/dL (0.6-1.3); POTASSIUM 4.5 mmol/L (3.5-5.1)
--- NOTE | 2020-01-23 18:00 | NUR ---
RN NOTES BS-198 MG/DL, COVERAGE GIVEN, PATIENT TOLERATED DINNER WELL, ADMINISTERED SCHEDULED MEDICATION, INFUSING ZOSYN 100 ML/HR ON RIGHT FA INTACT. F/C INTACT DRAINING WELL. ASSIST TURN AND REPOSITION Q 2 HR. ENDORSED ONCOMING NURSE FOLLOW PLAN OF CARE.
[2020-01-23 18:48] LABS: OCCULT BLOOD STOOL NEGATIVE (NEGATIVE)
[2020-01-23 20:00] VITALS: BP 156/75
--- NOTE | 2020-01-23 20:53 | NUR ---
MS2/RN AT INITIAL ROUNDING AT 1930, RECEIVED PATIENT SLEEPING, APPEAR COMFORTABLE, BREATHING EVEN AND UNLABORED, IVF INFUSING, CALL LIGHT IN REACH. WILL MONITOR.
--- NOTE | 2020-01-23 22:40 | NUR ---
MS2/RN HEPARIN NOT ADMINISTERED, PATIENT IS S/P WOUND DEBRIDEMENT TODAY.
[2020-01-24] MEDS: PIPERACILLIN /TAZOBACTAM 3.375 G in IV D5W 50 ML IV SCH ×4 (00:15→17:26)
--- NOTE | 2020-01-24 00:29 | NUR ---
MS2/RN PATIENT IS SLEEPING AT THIS TIME, AROUSABLE, APPEAR COMFORTABLE, NO SIGNS OF DISTRESS NOTED, CALL LIGHT IN REACH. WILL CONTINUE TO MONITOR.
--- NOTE | 2020-01-24 02:01 | NUR ---
MS2/RN PATIENT REFUSED TO BE TURNED BUT PATIENT ABLE TO TURN SHELF IN BED.
[2020-01-24] MEDS: IV 1/2NS 1000 ML 1,000 ML IV PRN ×2 (03:32→18:12)
--- NOTE | 2020-01-24 06:34 | NUR ---
MSS2/RN PATIENT IS STILL SLEEPING AT THIS TIME, APPEAR COMFORTABLE, NO SIGNS OF DISTRESS NOTED. PATIENT REFUSED BLOOD DRAW PER PNEUMATIC TOOL OPERATOR, REFUSED MORNING, PER PATIENT HE WILL CALL IF HE WANTS TO BE CLEANED, ALL NEEDS ATTENDED AT THIS TIME, WILL CONTINUE TO MONITOR.
[2020-01-24] MEDS: PANTOPRAZOLE 40 MG TABLET.DR PO SCH (07:30)
[2020-01-24] MEDS: BLOOD SUGAR DIAGNOSTIC 1 EACH STRIP IN SCH ×4 (07:30→21:19)
--- NOTE | 2020-01-24 07:30 | NUR ---
RN MS NOTES PT IN BED, AWAKE, ALERT AND ORIENTED, EATING BREAKFAST, NO COMPLAINT OF PAIN AT THIS TIME, BREATHING PATTERN NORMAL, IV FLUIDS INFUSING WELL, CALL LIGHT WITHIN REACH, NEEDS ATTENDED.
--- NOTE | 2020-01-24 07:32 | NUR ---
MS2/RN PATIENT REFUSED ACCU CHECK.
[2020-01-24 08:00] VITALS: BP 158/70
[2020-01-24] MEDS: DOCUSATE SODIUM 100 MG CAPSULE PO SCH ×2 (09:00→17:00)
[2020-01-24] MEDS: HEPARIN SODIUM, PORCINE 5000 UNITS/1 ML VIAL SQ SCH ×2 (09:00→21:00)
[2020-01-24] MEDS: FERROUS SULFATE (325 MG) 325 MG/TAB TABLET PO SCH (09:30)
[2020-01-24] MEDS: GABAPENTIN 300 MG CAPSULE PO SCH ×3 (09:30→21:11)
[2020-01-24] MEDS: LISINOPRIL (20MG) 20 MG TABLET PO SCH (09:30)
[2020-01-24] MEDS: AMLODIPINE BESYLATE 5 MG TABLET PO SCH (09:31)
[2020-01-24] MEDS: hydrALAZINE HCL 25 MG TABLET PO SCH ×3 (09:31→17:27)
[2020-01-24] MEDS: VITAMINS A AND D 56.7 GM TUBE TP SCH ×2 (09:35→18:09)
[2020-01-24] MEDS: DAKINS QUARTER STRENGTH (0.125%) 480 ML BOTTLE TOP SCH (09:38)
[2020-01-24] MEDS: MUPIROCIN OINT 2% 22 GM TUBE SCH ×2 (09:39→21:12)
[2020-01-24] MEDS: INSULIN REGULAR, HUMAN 100 UNIT/ML 3 ML VIAL SQ PRN ×3 (12:04→21:22)
--- NOTE | 2020-01-24 12:40 | NUR ---
RN MS NOTES PT IN BED, AWAKE, ALERT AND ORIENTED, NO COMPLAINT OF PAIN, EATING LUNCH, NEEDS ATTENDED, DUE MEDS GIVEN ORDERED, SEEN BY DR. LYNN, CALL LIGHT WITHIN REACH.
[2020-01-24 16:00] VITALS: BP 157/73
--- NOTE | 2020-01-24 18:22 | NUR ---
RN MS NOTES PT IN BED, AWAKE, ALERT AND ORIENTED, NO COMPLAINT OF PAIN AT THIS TIME, RESPIRATIONS NORMAL, IV FLUIDS INFUSING WELL, SEEN AND EXAMINED BY DR. MONTALVO AND PAMELA MULLER, TOLERATES CURRENT DIET, PM MEDS GIVEN, ALL NEEDS ATTENDED.
[2020-01-24 18:30] LABS: CALCIUM, SERUM 8.1 mg/dL (8.5-10.1); CREATININE 1.3 mg/dL (0.6-1.3); POTASSIUM 4.3 mmol/L (3.5-5.1)
--- NOTE | 2020-01-24 19:00 | NUR ---
RN MS NOTES PT IN BED, PM CARE PROVIDED, PT NON COMPLIANT WITH PM CARE, WOUND TREATMENT AND DRESSING CHANGES WITH BUTTOCKS WOUNDS, BEING VERBALLY ABUSIVE TO STAFF, NOTED IV SITE LEAKING, PT REQUESTS TO HAVE IT REPLACED LATER IN THE NIGHT.
[2020-01-24 19:30] VITALS: BP 142/71
--- NOTE | 2020-01-24 19:50 | NUR ---
MS RN NOTES PATIENT IN BED, AWAKE, ALERT AND ORIENTED X 4. BREATHING EVEN AND UNLABORED ON ROOM AIR. SHOWS NO SIGNS OF ACUTE RESPIRATORY DISTRESS, NO ACUTE PAIN. IV ON RAC 22G RUNNING 1/2 NS AT 75ML/HR. SHOWS NO SIGNS OF INFILTRATION, NO REDNESS. ITS CLEAN DRY AND INTACT. FC IS INTACT, FLOWING URINE. SAFETY PRECAUTION IN PLACE. BED IN LOWEST POSITION, LOCKED, AND CALL LIGHT KEPT WITHIN REACH. WILL CONTINUE TO MONITOR
[2020-01-24 20:00] VITALS: BP 142/71
[2020-01-25] MEDS: PIPERACILLIN /TAZOBACTAM 3.375 G in IV D5W 50 ML IV SCH ×5 (00:07→23:47)
[2020-01-25] MEDS: INSULIN REGULAR, HUMAN 100 UNIT/ML 3 ML VIAL SQ PRN ×4 (06:38→21:36)
[2020-01-25] MEDS: BLOOD SUGAR DIAGNOSTIC 1 EACH STRIP IN SCH ×4 (06:43→21:28)
--- NOTE | 2020-01-25 07:03 | NUR ---
MS RN NOTES PATIENT IN BED, ASLEEP, ALERT AND ORIENTED X 4. BREATHING EVEN AND UNLABORED ON ROOM AIR. SHOWS NO SIGNS OF ACUTE RESPIRATORY DISTRESS, NO ACUTE PAIN. IV ON L FOREARM 22G RUNNING 1/2 NS AT 75ML/HR. SHOWS NO SIGNS OF INFILTRATION, NO REDNESS. ITS CLEAN DRY AND INTACT. FC IS INTACT, FLOWING YELLOW CLEAR URINE. PT REFUSED WOUND DRESSING CHANGE. ALL DUE MEDICATIONS GIVEN. SAFETY PRECAUTION IN PLACE. BED IN LOWEST POSITION, LOCKED, AND CALL LIGHT KEPT WITHIN REACH. WILL ENDORSE TO ONCOMING NURSE.
--- NOTE | 2020-01-25 07:30 | NUR ---
RN MS NOTES PT IN BED, AWAKE, ALERT AND ORIENTED, EATING BREAKFAST, NO COMPLAINT OF PAIN OR ANY DISCOMFORT, RESPIRATIONS NORMAL, CALL LIGHT WITHIN REACH, NEEDS ATTENDED.
[2020-01-25 08:00] VITALS: BP 160/79
[2020-01-25] MEDS: hydrALAZINE HCL 25 MG TABLET PO SCH ×3 (08:29→16:18)
[2020-01-25] MEDS: FERROUS SULFATE (325 MG) 325 MG/TAB TABLET PO SCH (08:29)
[2020-01-25] MEDS: AMLODIPINE BESYLATE 5 MG TABLET PO SCH (08:30)
[2020-01-25] MEDS: PANTOPRAZOLE 40 MG TABLET.DR PO SCH (08:30)
[2020-01-25] MEDS: GABAPENTIN 300 MG CAPSULE PO SCH ×3 (08:30→21:40)
[2020-01-25] MEDS: LISINOPRIL (20MG) 20 MG TABLET PO SCH (08:30)
[2020-01-25] MEDS: DOCUSATE SODIUM 100 MG CAPSULE PO SCH ×2 (08:31→16:26)
[2020-01-25] MEDS: HEPARIN SODIUM, PORCINE 5000 UNITS/1 ML VIAL SQ SCH ×2 (08:31→21:00)
[2020-01-25] MEDS: MUPIROCIN OINT 2% 22 GM TUBE SCH ×2 (08:38→21:45)
[2020-01-25] MEDS: DAKINS QUARTER STRENGTH (0.125%) 480 ML BOTTLE TOP SCH (08:38)
[2020-01-25] MEDS: VITAMINS A AND D 56.7 GM TUBE TP SCH ×2 (08:38→16:22)
--- NOTE | 2020-01-25 12:33 | NUR ---
RN MS NOTES PT IN BED, AWAKE, EATING LUNCH, SEEN BY PAMELA MULLER, BLOOD SUGAR CHECKED, INSULIN GIVEN PER SLIDING SCALE, NEEDS ATTENDED.
[2020-01-25 14:09] LABS: CALCIUM, SERUM 8.3 mg/dL (8.5-10.1); CREATININE 1.3 mg/dL (0.6-1.3); POTASSIUM 4.5 mmol/L (3.5-5.1)
[2020-01-25] MEDS: IV 1/2NS 1000 ML 1,000 ML IV PRN (15:49)
[2020-01-25 16:00] VITALS: BP 154/77
--- NOTE | 2020-01-25 18:15 | NUR ---
RN MS NOTES PT IN BED, AWAKE, ALERT AND ORIENTED, WATCHING TV, DENIES PAIN, NOT IN DISTRESS, SEEN AND EXAMINED BY [employer] INFO SPECIALIST, PLAN OF CARE DISCUSSED WITH PT, OFFERED WOUND CARE TO PT SEVERAL TIMES, PT REFUSED, STATED THAT HE WOULD LIKE TO HAVE WOUND TREATMENT AND DRESSING CHANGE TOMORROW. KEPT PT COMFORTABLE, PM MEDS GIVEN, ALL NEEDS ATTENDED.
--- NOTE | 2020-01-25 19:15 | NUR ---
MS RN NOTES RECEIVED PT IN BED AWAKE AND ABLE TO MAKE NEEDS KNOWN. PT A/O X2-3. RESPIRATIONS EVEN AND UNLABORED WITH NO S/S OF ACUTE DISTRESS OR SOB NOTED. NO COMPLAINTS OF PAIN AT THIS TIME. PT NOTED WITH FC DRAINING WELL. PT ALSO NOTED WITH LFA @22G PATENT AND INTACT INFUSING 1/2 NS @75CC/HR. SAFETY MEASURES IN PLACE WITH BED IN LOWEST LOCKED POSITION WITH SIDE RAILS UP X2. CALL LIGHT WITHIN REACH. WILL CONTINUE TO MONITOR.
[2020-01-25 20:39] VITALS: BP 157/73
--- NOTE | 2020-01-25 23:00 | NUR ---
MS RN NOTES PT IS ABLE TO TURN SELF BUT PT REFUSES TO TURN SELF. OFFERED TO TURN PT INSTEAD, PT STILL REFUSED. PT STATES "I CAN TURN MY SELF BUT I'M OK LIKE THIS RIGHT NOW." OFFERED MULTIPLE TIMES AND PT CONTINUED TO REFUSE. WILL CONTINUE TO MONITOR.
[2020-01-26] MEDS: PIPERACILLIN /TAZOBACTAM 3.375 G in IV D5W 50 ML IV SCH ×4 (05:24→23:11)
--- NOTE | 2020-01-26 05:30 | NUR ---
MS RN NOTES PT REFUSED PROCAL LAB DRAW AT THIS TIME. PT STATED "COME BACK AFTER BREAKFAST." LAB WILL SEND ANOTHER TECH TO REDRAW AFTER BREAKFAST. WILL CONTINUE TO MONITOR.
--- NOTE | 2020-01-26 06:44 | NUR ---
MS RN NOTES PT REFUSED INSULIN SLIDING SCALE COVERAGE. WILL CONTINUE TO MONITOR.
[2020-01-26] MEDS: INSULIN REGULAR, HUMAN 100 UNIT/ML 3 ML VIAL SQ PRN ×4 (06:45→21:57)
[2020-01-26] MEDS: BLOOD SUGAR DIAGNOSTIC 1 EACH STRIP IN SCH ×4 (06:45→21:40)
--- NOTE | 2020-01-26 07:00 | NUR ---
MS RN NOTES PT REFUSED TO BE CHANGED AND GIVEN A BED BATH MULTIPLE TIMES THROUGHOUT SHIFT. WILL CONTINUE TO MONITOR.
--- NOTE | 2020-01-26 07:08 | NUR ---
MS RN NOTES PT IN BED AWAKE RESTING AND ABLE TO MAKE NEEDS KNOWN. PT A/O X2-3. RESPIRATIONS EVEN AND UNLABORED WITH NO S/S OF ACUTE DISTRESS OR SOB NOTED THROUGHOUT SHIFT. NO COMPLAINTS OF PAIN AT THIS TIME. PT NOTED WITH FC DRAINING WELL. PT ALSO NOTED WITH LFA @22G PATENT AND INTACT INFUSING 1/2 NS @75CC/HR. SAFETY MEASURES IN PLACE WITH BED IN LOWEST LOCKED POSITION WITH SIDE RAILS UP X2. CALL LIGHT WITHIN REACH. WILL ENDORSE TO ONCOMING NURSE FOR IVELISSE.
--- NOTE | 2020-01-26 07:10 | NUR ---
RN OPENING NOTES RECEIVED PATIENT IN BED RESTING. A/OX4. NOT IN ANY FORM OF DISTRESS. NO SOB. DENIED ANY PAIN OR DISCOMFORT AT THIS TIME. IV ACCESS INTACT AND PATENT. MALONE IN PLACE, DRAINING URINE WELL. KEPT PATIENT SAFE AND COMFORTABLE. BED IN LOW/LOCKED POSITION, SIDERAILS UP, CALL LIGHT IN REACH. WILL MONITOR ACCORDINGLY.
[2020-01-26 08:00] VITALS: BP 165/78
[2020-01-26] MEDS: hydrALAZINE HCL 25 MG TABLET PO SCH ×3 (08:47→16:37)
[2020-01-26] MEDS: AMLODIPINE BESYLATE 5 MG TABLET PO SCH (08:48)
[2020-01-26] MEDS: FERROUS SULFATE (325 MG) 325 MG/TAB TABLET PO SCH (08:49)
[2020-01-26] MEDS: GABAPENTIN 300 MG CAPSULE PO SCH ×3 (08:49→21:41)
[2020-01-26] MEDS: LISINOPRIL (20MG) 20 MG TABLET PO SCH (08:50)
[2020-01-26] MEDS: VITAMINS A AND D 56.7 GM TUBE TP SCH ×2 (08:51→16:42)
[2020-01-26] MEDS: DAKINS QUARTER STRENGTH (0.125%) 480 ML BOTTLE TOP SCH (08:51)
[2020-01-26] MEDS: MUPIROCIN OINT 2% 22 GM TUBE SCH ×2 (08:52→21:41)
[2020-01-26] MEDS: DOCUSATE SODIUM 100 MG CAPSULE PO SCH ×2 (08:58→16:38)
[2020-01-26] MEDS: PANTOPRAZOLE 40 MG TABLET.DR PO SCH (08:58)
[2020-01-26] MEDS: HEPARIN SODIUM, PORCINE 5000 UNITS/1 ML VIAL SQ SCH (08:58)
[2020-01-26] MEDS ORDERED: VITA56.7 TP (09:53)
[2020-01-26] MEDS ORDERED: Silver Sulfadiazine Cream TP (09:53)
[2020-01-26] MEDS ORDERED: PIPE3.379 IV (09:53)
[2020-01-26] MEDS: HYDROCODONE/APAP 10/325MG 1 EA TABLET PO PRN (11:19)
[2020-01-26] MEDS: PROSOURCE / PROSTAT (PYXIS) 30 ML UDC PO SCH ×3 (12:11→16:38)
[2020-01-26 16:00] VITALS: BP 150/84
[2020-01-26] MEDS: SILVER SULFADIAZINE CREAM 25 GM TUBE TP PRN (18:46)
--- NOTE | 2020-01-26 19:15 | NUR ---
MS RN NOTES RECEIVED PT IN BED AWAKE AND ABLE TO MAKE NEEDS KNOWN. PT A/O X2-3. RESPIRATIONS EVEN AND UNLABORED WITH NO S/S OF ACUTE DISTRESS OR SOB NOTED. NO COMPLAINTS OF PAIN AT THIS TIME. PT NOTED WITH FC DRAINING WELL. PT ALSO NOTED WITH LFA @22G PATENT AND INTACT WITH NS TKO. SAFETY MEASURES IN PLACE WITH BED IN LOWEST LOCKED POSITION WITH SIDE RAILS UP X2. CALL LIGHT WITHIN REACH. WILL CONTINUE TO MONITOR.
--- NOTE | 2020-01-26 19:18 | NUR ---
RN CLOSING NOTES PATIENT IN STABLE CONDITION. ALL NEEDS ATTENDED AND PROVIDED. ALL DUE MEDICATIONS GIVEN ORDERED. ASSISTED WITH ADLS. TURNED AND REPOSITIONED PATIENT EVERY 2 HRS NEEDED. WOUND CARE RENDERED. KEPT PATIENT SAFE AND COMFORTABLE. BED IN LOW/LOCKED POSITION, SIDERAILS UP X2. CALL LIGHT IN REACH. ENDORSED ACCORDINGLY.
[2020-01-26 20:00] VITALS: BP 138/78
--- NOTE | 2020-01-26 21:25 | NUR ---
MS RN NOTES PT REFUSED INSULIN SLIDING SCALE COVERAGE AT THIS TIME. WILL CONTINUE TO MONITOR.
--- NOTE | 2020-01-26 23:21 | NUR ---
MS RN NOTES PT REFUSED TO BE TURNED. PT STATED "I CAN TURN MYSELF, I'M FINE IN THIS POSITION RIGHT NOW." WILL CONTINUE TO MONITOR.
--- NOTE | 2020-01-27 05:00 | NUR ---
MS RN NOTES PT REFUSED MORNING LABS AT THIS TIME. PT STATED "PLEASE COME BACK AFTER BREAKFAST." LAB WILL SEND ANOTHER TECH AFTER BREAKFAST. WILL CONTINUE TO MONITOR.
[2020-01-27] MEDS: PIPERACILLIN /TAZOBACTAM 3.375 G in IV D5W 50 ML IV SCH ×3 (05:48→17:00)
[2020-01-27] MEDS: BLOOD SUGAR DIAGNOSTIC 1 EACH STRIP IN SCH ×4 (06:57→21:17)
[2020-01-27] MEDS: PANTOPRAZOLE 40 MG TABLET.DR PO SCH (07:30)
--- NOTE | 2020-01-27 07:31 | NUR ---
MS RN NOTES PT IN BED AWAKE RESTING AND ABLE TO MAKE NEEDS KNOWN. PT A/O X2-3. RESPIRATIONS EVEN AND UNLABORED WITH NO S/S OF ACUTE DISTRESS OR SOB NOTED THROUGHOUT SHIFT. NO COMPLAINTS OF PAIN AT THIS TIME. PT NOTED WITH FC DRAINING WELL. PT ALSO NOTED WITH LFA @22G PATENT AND INTACT TKO. SAFETY MEASURES IN PLACE WITH BED IN LOWEST LOCKED POSITION WITH SIDE RAILS UP X2. CALL LIGHT WITHIN REACH. WILL ENDORSE TO ONCOMING NURSE FOR IVELISSE.
--- NOTE | 2020-01-27 07:43 | NUR ---
MS RN OPENING NOTE PATIENT IN BED RESTING COMFORTABLY. PATIENT IN NO ACUTE DISTRESS. NO SOB NOTED. PATIENT BREATHING IS EVEN AND UNLABORED. PATIENT IN NO PAIN AT THIS TIME. PATIENT MALOEN CATHETER HANGING TO GRAVITY, DRAINING WELL. PATIENT SAFETY PRECAUTIONS IN PLACE. BED ALARM IS ON. PATIENT MAINTAINED ON ISOLATION PRECAUTIONS. PATIENT BED IS LOCKED AND IN LOWEST POSITION. CALL LIGHT WITHIN REACH. WILL CONTINUE TO MONITOR.
[2020-01-27 08:00] VITALS: BP 153/76
--- NOTE | 2020-01-27 08:06 | NUR ---
MS RN NOTE PATIENT REFUSING BLOOD SUGAR CHECK THIS AM. EDUCATED RISKS VS BENEFITS. PATIENT CONTINUES TO REFUSE. WILL CONTINUE TO MONITOR.
[2020-01-27] MEDS: AMLODIPINE BESYLATE 5 MG TABLET PO SCH (08:16)
[2020-01-27] MEDS: FERROUS SULFATE (325 MG) 325 MG/TAB TABLET PO SCH (08:16)
[2020-01-27] MEDS: GABAPENTIN 300 MG CAPSULE PO SCH ×3 (08:16→21:17)
[2020-01-27] MEDS: LISINOPRIL (20MG) 20 MG TABLET PO SCH (08:16)
[2020-01-27] MEDS: hydrALAZINE HCL 25 MG TABLET PO SCH ×3 (08:17→16:28)
[2020-01-27] MEDS: VITAMINS A AND D 56.7 GM TUBE TP SCH ×2 (08:17→16:40)
[2020-01-27] MEDS: DAKINS QUARTER STRENGTH (0.125%) 480 ML BOTTLE TOP SCH (08:17)
[2020-01-27] MEDS: PROSOURCE / PROSTAT (PYXIS) 30 ML UDC PO SCH ×3 (08:18→16:28)
[2020-01-27] MEDS: MUPIROCIN OINT 2% 22 GM TUBE SCH (08:18)
[2020-01-27] MEDS: DOCUSATE SODIUM 100 MG CAPSULE PO SCH ×2 (08:22→16:07)
--- NOTE | 2020-01-27 08:23 | NUR ---
MS RN NOTE PATIENT REFUSING PANTOPRAZOLE AND DOCUSATE SODIUM THIS AM. EDUCATED RISKS VS BENEFITS. PATIENT CONTINUED TO REFUSE.
[2020-01-27 09:52] LABS: BASOPHILS # (AUTO) 0.1 /CMM (0.0-0.2); EOSINOPHILS % (AUTO) 2.8 % (0.0-6.0); HEMATOCRIT 23 % (39-51); HEMOGLOBIN 7.2 g/dL (13.5-17.5); LYMPHOCYTES # (AUTO) 1.4 /CMM (0.8-4.8); LYMPHOCYTES % (AUTO) 14.5 % (20.0-44.0); MEAN CORPUSCULAR HGB CONC 32 g/dl (31.0-36.0); MEAN CORPUSCULAR VOLUME 84 fL (80-96); MONOCYTES # (AUTO) 0.5 /CMM (0.1-1.30); MONOCYTES % (AUTO) 5.4 % (2.0-12.0); NEUTROPHILS # (AUTO) 7.2 /CMM (1.8-8.9); NEUTROPHILS % (AUTO) 76.3 % (43.0-81.0); PLATELET COUNT (AUTO) 506 /CMM (150-450); RED BLOOD CELL COUNT(AUTO) 2.69 MIL/uL (4.5-6.0); WHITE BLOOD COUNT (AUTO) 9.4 K/uL (4.3-11.0)
[2020-01-27 10:11] LABS: ALBUMIN 1.6 g/dL (3.4-5.0); BILIRUBIN,TOTAL 0.1 mg/dL (0.2-1.0); CALCIUM, SERUM 8.6 mg/dL (8.5-10.1); CREATININE 1.4 mg/dL (0.6-1.3); MAGNESIUM 1.6 mg/dL (1.8-2.4); PHOSPHORUS 3.9 mg/dL (2.5-4.9); POTASSIUM 5.1 mmol/L (3.5-5.1); TOTAL PROTEIN, SERUM 6.2 g/dL (6.4-8.2)
[2020-01-27] MEDS: INSULIN REGULAR, HUMAN 100 UNIT/ML 3 ML VIAL SQ PRN ×3 (11:21→21:28)
[2020-01-27] MEDS: Magnesium 1GM/D5W 100ML PREMIX 100 ML IV SCH ×2 (12:17→13:27)
--- NOTE | 2020-01-27 16:07 | NUR ---
MS RN NOTE patient refusing colace 1700 dose. educated risks vs benefits. patient continues to refuse.
[2020-01-27 16:20] VITALS: BP 150/73
--- NOTE | 2020-01-27 18:25 | NUR ---
MS RN CLOSING NOTE PATIENT IN BED RESTING COMFORTABLY. PATIENT IN NO ACUTE DISTRESS. NO SOB NOTED. PATIENT BREATHING IS EVEN AND UNLABORED. PATIENT KEPT CLEAN, DRY, AND COMFORTABLE THROUGHOUT SHIFT. NEEDS AND CONCERNS ADDRESSED. PATIENT TURNED AND REPOSITIONED MUCH PATIENT WOULD ALLOW. AT TIMES PATIENT WOULD RAISE VOICE AND NOT ALLOW TURNING AND REPOSITIONING OR OFFLOADING EXTREMITIES ON TO PILLOWS. WOUND CARE PROVIDED ORDERED. PATIENT BED ALARM IS ON. PATIENT MALONE CATHETER HANGING TO GRAVITY, DRAINING CLEAR YELLOW URINE. PATIENT SAFETY PRECAUTIONS IN PLACE. PATIENT BED IS LOCKED AND IN LOWEST POSITION. CALL LIGHT WITHIN REACH. WILL ENDORSE CARE TO PM SHIFT FOR IVELISSE.
--- NOTE | 2020-01-27 19:30 | NUR ---
MS RN OPENING NOTE RECEIVED PATIENT ON CONTACT ISOLATION FOR MRSA NARES. PATIENT IN BED. A/OX 2 -3. TOLERATING ROOM AIR. RESPIRATIONS ARE EVEN AND UNLABORED. NO S/S SOB NOTED. NO S/S PAIN AT THIS TIME. IN NO APPARENT DISTRESS. IV ACCESS IN LFA#22 RUNNING TKO. MALONE CATHETER IS PRESENT, DRAINING TO GRAVITY, URINE IS YELLOW. BED IS LOW AND LOCKED, HOB ELEVATED IN SEMI FOWLERS, SIDE RAILS UP X2, EXTREMITIES OFFLOADED. CALL LIGHT WITHIN REACH. WILL CONTINUE TO MONITOR.
[2020-01-27 20:00] VITALS: BP 143/68
[2020-01-28] MEDS: PIPERACILLIN /TAZOBACTAM 3.375 G in IV D5W 50 ML IV SCH ×5 (00:05→23:57)
[2020-01-28] MEDS: BLOOD SUGAR DIAGNOSTIC 1 EACH STRIP IN SCH ×4 (06:00→22:31)
[2020-01-28] MEDS: INSULIN REGULAR, HUMAN 100 UNIT/ML 3 ML VIAL SQ PRN ×4 (06:13→22:43)
--- NOTE | 2020-01-28 06:37 | NUR ---
MS RN CLOSING NOTE PATIENT REMAINS ON CONTACT ISOLATION FOR MRSA NARES. PATIENT IN BED. A/OX 2 -3. TOLERATING ROOM AIR. RESPIRATIONS ARE EVEN AND UNLABORED. NO SOB NOTED. NO C/O PAIN THROUGHOUT SHIFT. NO DISTRESS NOTED. IV ACCESS MAINTAINED IN LFA#22 RUNNING TKO. MALONE CATHETER IS MAINTAINED, DRAINING TO GRAVITY, URINE IS YELLOW WITH SEDIMENT, OUTPUT 1100ML. BED IS LOW AND LOCKED, HOB ELEVATED IN SEMI FOWLERS, SIDE RAILS UP X2, EXTREMITIES OFFLOADED, TURNED PER PROTOCOL. CALL LIGHT WITHIN REACH. WILL ENDORSE TO NEXT SHIFT
[2020-01-28] MEDS: PANTOPRAZOLE 40 MG TABLET.DR PO SCH (07:30)
--- NOTE | 2020-01-28 07:48 | NUR ---
MS RN OPENING NOTE PATIENT IN BED RESTING COMFORTABLY. PATIENT IN NO ACUTE DISTRESS. NO SOB NOTED. PATIENT BREATHING IS EVEN AND UNLABORED. PATIENT IN NO PAIN AT THIS TIME. PATIENT AMLONE CATHETER HANGING TO GRAVITY, DRAINING WELL. PATIENT SAFETY PRECAUTIONS IN PLACE. BED ALARM IS ON. PATIENT MAINTAINED ON ISOLATION PRECAUTIONS. PATIENT BED IS LOCKED AND IN LOWEST POSITION. CALL LIGHT WITHIN REACH. WILL CONTINUE TO MONITOR.
[2020-01-28 08:00] VITALS: BP_SYST 104; BP_SYST 140; BP_DIAS 72
[2020-01-28] MEDS: AMLODIPINE BESYLATE 5 MG TABLET PO SCH (08:10)
[2020-01-28] MEDS: LISINOPRIL (20MG) 20 MG TABLET PO SCH (08:10)
[2020-01-28] MEDS: DOCUSATE SODIUM 100 MG CAPSULE PO SCH ×2 (08:11→16:29)
[2020-01-28] MEDS: FERROUS SULFATE (325 MG) 325 MG/TAB TABLET PO SCH (08:11)
[2020-01-28] MEDS: hydrALAZINE HCL 25 MG TABLET PO SCH ×3 (08:11→16:39)
[2020-01-28] MEDS: GABAPENTIN 300 MG CAPSULE PO SCH ×3 (08:11→22:27)
[2020-01-28] MEDS: PROSOURCE / PROSTAT (PYXIS) 30 ML UDC PO SCH ×3 (08:12→16:40)
[2020-01-28] MEDS: DAKINS QUARTER STRENGTH (0.125%) 480 ML BOTTLE TOP SCH (08:16)
[2020-01-28] MEDS: VITAMINS A AND D 56.7 GM TUBE TP SCH ×2 (08:16→16:46)
--- NOTE | 2020-01-28 08:18 | NUR ---
MS RN NOTE PATIENT REFUSING PANTOPRAZOLE AND DOCUSATE SODIUM THIS AM. EDUCATED RISKS VS BENEFITS. PATIENT CONTINUED TO REFUSE.
[2020-01-28 11:08] LABS: CALCIUM, SERUM 8.5 mg/dL (8.5-10.1); CREATININE 1.4 mg/dL (0.6-1.3); MAGNESIUM 1.9 mg/dL (1.8-2.4); POTASSIUM 4.9 mmol/L (3.5-5.1)
[2020-01-28] MEDS: HYDROCODONE/APAP 10/325MG 1 EA TABLET PO PRN (13:01)
--- NOTE | 2020-01-28 16:30 | NUR ---
MS RN NOTE PATIENT REFUSING COLACE 1700 DOSE. EDUCATED RISKS VS BENEFITS. PATIENT CONTINUES TO REFUSE.
--- NOTE | 2020-01-28 19:13 | NUR ---
MS RN CLOSING NOTE PATIENT IN BED RESTING COMFORTABLY WATCHING TV. PATIENT IN NO ACUTE DISTRESS. NO SOB NOTED. PATIENT BREATHING IS EVEN AND UNLABORED. PATIENT KEPT CLEAN, DRY, AND COMFORTABLE THROUGHOUT SHIFT. NEEDS AND CONCERNS ADDRESSED. PATIENT TURNED AND REPOSITIONED MUCH PATIENT WOULD ALLOW. AT TIMES PATIENT WOULD REFUSE AND NOT ALLOW TURNING AND REPOSITIONING OR OFFLOADING EXTREMITIES ON TO PILLOWS. WOUND CARE PROVIDED ORDERED. PATIENT BED ALARM IS ON. PATIENT MALONE CATHETER HANGING TO GRAVITY, DRAINING CLEAR YELLOW URINE. PATIENT SAFETY PRECAUTIONS IN PLACE. PATIENT BED IS LOCKED AND IN LOWEST POSITION. CALL LIGHT WITHIN REACH. WILL ENDORSE CARE TO PM SHIFT FOR IVELISSE.
[2020-01-28 20:00] VITALS: BP 146/77
--- NOTE | 2020-01-28 22:14 | NUR ---
MS RN OPENING NOTE RECEIVED PATIENT ON CONTACT ISOLATION FOR MRSA NARES. PATIENT IN BED. A/OX 2 -3. TOLERATING ROOM AIR. RESPIRATIONS ARE EVEN AND UNLABORED. NO S/S SOB NOTED. NO S/S PAIN AT THIS TIME. IN NO APPARENT DISTRESS. IV ACCESS IN LFA#22 RUNNING TKO. MALONE CATHETER IS PRESENT, DRAINING TO GRAVITY, URINE IS YELLOW WITH SEDIMENTS. BED IS LOW AND LOCKED, HOB ELEVATED IN SEMI FOWLERS, SIDE RAILS UP X2, EXTREMITIES OFFLOADED. CALL LIGHT WITHIN REACH. WILL CONTINUE TO MONITOR.
[2020-01-29] MEDS: PIPERACILLIN /TAZOBACTAM 3.375 G in IV D5W 50 ML IV SCH ×2 (05:55→11:54)
[2020-01-29] MEDS: BLOOD SUGAR DIAGNOSTIC 1 EACH STRIP IN SCH ×4 (06:08→22:03)
[2020-01-29] MEDS: INSULIN REGULAR, HUMAN 100 UNIT/ML 3 ML VIAL SQ PRN ×4 (06:09→22:02)
--- NOTE | 2020-01-29 06:17 | NUR ---
MS RN CLOSING NOTE PATIENT REMAINS ON CONTACT ISOLATION FOR MRSA NARES. PATIENT IN BED. A/OX 2 -3. TOLERATING ROOM AIR. RESPIRATIONS ARE EVEN AND UNLABORED. NO SOB NOTED. NO C/O PAIN THROUGHOUT SHIFT. NO DISTRESS NOTED. IV ACCESS MAINTAINED IN LFA#22 RUNNING TKO. MALONE CATHETER IS MAINTAINED, DRAINING TO GRAVITY, URINE IS YELLOW WITH SEDIMENT, OUTPUT 1200ML. BED IS LOW AND LOCKED, HOB ELEVATED IN SEMI FOWLERS, SIDE RAILS UP X2, EXTREMITIES OFFLOADED, TURNED PER PROTOCOL. CALL LIGHT WITHIN REACH. WILL ENDORSE TO NEXT SHIFT
[2020-01-29] MEDS: PANTOPRAZOLE 40 MG TABLET.DR PO SCH ×2 (07:30→08:44)
[2020-01-29 08:00] VITALS: BP 121/62
--- NOTE | 2020-01-29 08:00 | NUR ---
RN NOTES RECEIVED PATIENT IN THE ROOM, A/O X3, STABLE NO ACUTE RESPIRATORY DISTRESS. PATIENT ON ISOLATION OF WOUND, TOTAL CARE, WOUND ON SACRAL AREA,PATIENT REFUSED DRESSING CHANGE AT THIS TIME FINE AFTER LUNCH. MALONE CATHETER DARNING LIGHT YELLOW OUTPUT, V/S STABLE. PATIENT WAS COMPLAINING OF PAIN ON GENERALIZED PAIN 6/10 PER PAIN SCALE. PATIENT SELECTIVE WITH SCHEDULED MEDICATION. ASSIST TURN AND REPOSTION Q 2 HR. PATIENT TOLERATED BREAKFAST WELL. SAFETY PRECAUTION MAINTAINED ALL THE TIME.
[2020-01-29] MEDS: DOCUSATE SODIUM 100 MG CAPSULE PO SCH ×3 (08:43→16:58)
[2020-01-29] MEDS: AMLODIPINE BESYLATE 5 MG TABLET PO SCH (08:44)
[2020-01-29] MEDS: GABAPENTIN 300 MG CAPSULE PO SCH ×3 (08:44→21:52)
[2020-01-29] MEDS: FERROUS SULFATE (325 MG) 325 MG/TAB TABLET PO SCH (08:44)
[2020-01-29] MEDS: LISINOPRIL (20MG) 20 MG TABLET PO SCH (08:45)
[2020-01-29] MEDS: hydrALAZINE HCL 25 MG TABLET PO SCH ×3 (08:46→16:57)
[2020-01-29] MEDS: HYDROCODONE/APAP 10/325MG 1 EA TABLET PO PRN (08:47)
--- NOTE | 2020-01-29 08:47 | NUR ---
RN NOTES ADMINISTERED NARCO 10/325 MG PO PRN FOR GENERALIZED PAIN PER PATIENT REQUEST, V/S TAKEN BP 121/62, P-78, R-18. ENCOURAGED PATIENT INCREASE FLUID INTAKE., ASSIST PATIENT TURN AND REPOSTION Q 2 HR.
[2020-01-29] MEDS: PROSOURCE / PROSTAT (PYXIS) 30 ML UDC PO SCH ×4 (08:48→16:58)
[2020-01-29] MEDS: DAKINS QUARTER STRENGTH (0.125%) 480 ML BOTTLE TOP SCH (08:51)
[2020-01-29] MEDS: VITAMINS A AND D 56.7 GM TUBE TP SCH ×2 (08:51→17:56)
[2020-01-29] MEDS ORDERED: SILVER NITRATE APPLICATOR 1 EA BOX TP ONE (12:00)
[2020-01-29] MEDS ORDERED: LIDOCAINE 1%-EPI 1:100,000 20 ML VIAL TP ONE (12:00)
[2020-01-29 12:36] VITALS: BP 146/73
--- NOTE | 2020-01-29 12:39 | NUR ---
RN NOTES BS-188 MG/DL COVERAGE GIVEN, V/S 146/78, P-80 ADMINISTERED SCHEDULED MEDICATION, PATIENT TOLERATED LUNCH WELL, ASSISTTURN AND REPOSTION Q 2 HR, SAFETY PRECAUTION MAINTAINED ALL THE TIME.
--- NOTE | 2020-01-29 14:00 | NUR ---
RN NOTES WOUND DRESSING CHANGED, PICTURE TAKEN.
[2020-01-29 16:00] VITALS: BP_SYST 162; BP_SYST 164; BP_DIAS 81
[2020-01-29] MEDS: CEFEPIME 2 GM in IV D5W 100 ML IV SCH (17:57)
[2020-01-29] MEDS ORDERED: CEFEPIME 1 GM VIAL IV SCH (18:00)
--- NOTE | 2020-01-29 18:11 | NUR ---
RN NOTES BS-145 MG/DL, COVERAGE GIVEN, ADMINISTERED SCHEDULED MEDICATION, PATIENT SELECTIVE WIT. INFUSING MAXIPIM 2G ON LEFT FA INTACT. PATIENT TOLERATED DINNER WELL, ASSIST TURN AND REPOSTION Q 2 HR, CALL LIGHT WITHIN TO REACH. PLAN TO DISCHARGE B&C TOMORROW. ENDORSED ONCOMING NURSE FOLLOW PLAN OF CARE.
[2020-01-29 20:00] VITALS: BP 149/63
--- NOTE | 2020-01-29 20:07 | NUR ---
MS RN OPENING NOTES PATIENT RECEIVED RESTING IN BED, A/O X 3. STABLE ON RA WITH BREATHING EVEN AND UNLABORED, NO SOB NOTED. NO SIGNS OF ACUTE DISTRESS. NO CURRENT COMPLAINTS OF PAIN OR DISCOMFORT. MALONE IN PLACE WITH CLEAR YELLOW URINE. IV LOCATED ON L RA #22 SL. SAFETY PRECAUTIONS IN PLACE WITH BED IN LOWEST POSITION, CALL LIGHT WITHIN REACH, BREAKS ON, SIDE RAILS UP. WILL CONTINUE TO MONITOR THROUGHOUT THE NIGHT.
--- NOTE | 2020-01-29 20:12 | NUR ---
MS RN NOTES PLAN TO D/C TOMORROW 01/29 BY NOON.
[2020-01-30] MEDS: CEFEPIME 2 GM in IV D5W 100 ML IV SCH ×2 (02:02→09:03)
--- NOTE | 2020-01-30 06:30 | NUR ---
MS RN CLOSING NOTES PATIENT IN BED, A/O X 3. STABLE ON RA WITH BREATHING EVEN AND UNLABORED, NO SOB NOTED. NO SIGNS OF ACUTE DISTRESS. NO CURRENT COMPLAINTS OF PAIN OR DISCOMFORT. MALONE IN PLACE WITH CLEAR YELLOW URINE. IV LOCATED ON L RA #22 SL. SAFETY PRECAUTIONS IN PLACE WITH BED IN LOWEST POSITION, CALL LIGHT WITHIN REACH, BREAKS ON, SIDE RAILS UP. ALL NEEDS ATTENDED TO. PATIENT WAS KEPT CLEAN AND DRY. WILL ENDORSE TO ONCOMING SHIFT ABOUT IVELISSE.
[2020-01-30] MEDS: BLOOD SUGAR DIAGNOSTIC 1 EACH STRIP IN SCH ×2 (06:47→11:34)
[2020-01-30] MEDS: INSULIN REGULAR, HUMAN 100 UNIT/ML 3 ML VIAL SQ PRN ×2 (06:48→11:38)
[2020-01-30] MEDS: PANTOPRAZOLE 40 MG TABLET.DR PO SCH (07:15)
--- NOTE | 2020-01-30 07:51 | NUR ---
MS RN OPENING NOTE RECEIVED PATIENT IN BED RESTING COMFORTABLY. PATIENT IN NO ACUTE DISTRESS. NO SOB NOTED. PATIENT BREATHING IS EVEN AND UNLABORED. PATIENT IN NO PAIN AT THIS TIME. PATIENT MALONE CATHETER HANGING TO GRAVITY, DRAINING WELL. PATIENT SAFETY PRECAUTIONS IN PLACE. BED ALARM IS ON. PATIENT MAINTAINED ON ISOLATION PRECAUTIONS. PATIENT BED IS LOCKED AND IN LOWEST POSITION. CALL LIGHT WITHIN REACH. WILL CONTINUE TO MONITOR.
[2020-01-30 08:00] VITALS: BP 140/68
[2020-01-30] MEDS: DOCUSATE SODIUM 100 MG CAPSULE PO SCH (08:37)
[2020-01-30] MEDS: GABAPENTIN 300 MG CAPSULE PO SCH (08:42)
[2020-01-30] MEDS: AMLODIPINE BESYLATE 5 MG TABLET PO SCH (08:42)
[2020-01-30] MEDS: PROSOURCE / PROSTAT (PYXIS) 30 ML UDC PO SCH ×2 (08:42→12:07)
[2020-01-30] MEDS: FERROUS SULFATE (325 MG) 325 MG/TAB TABLET PO SCH (08:42)
[2020-01-30] MEDS: hydrALAZINE HCL 25 MG TABLET PO SCH ×2 (08:43→12:07)
[2020-01-30] MEDS: LISINOPRIL (20MG) 20 MG TABLET PO SCH (08:43)
[2020-01-30] MEDS: DAKINS QUARTER STRENGTH (0.125%) 480 ML BOTTLE TOP SCH (08:45)
[2020-01-30] MEDS: VITAMINS A AND D 56.7 GM TUBE TP SCH (08:45)
--- NOTE | 2020-01-30 09:31 | NUR ---
MS RN NOTE PATIENT REFUSING PANTOPRAZOLE AND DOCUSATE SODIUM THIS AM. EDUCATED RISKS VS BENEFITS. PATIENT CONTINUED TO REFUSE.
--- NOTE | 2020-01-30 10:20 | NUR ---
MS RN NOTE PATIENT REFUSING TO HAVE SKIN ASSESSMENT AND PICTURES. PATIENT STATES " I DONT WANT YOU TO PERFORM ANY OF THAT. I AM OKAY THE WAY THINGS ARE , THEY HAVE ALREADY TAKEN PLENTY OF PHOTOS. THEY TAKE PHOTOS ON WEDNESDAY AND THATS HOW I WANT IT. I REFUSE TO HAVE A SKIN ASSESSMENT AND PHOTOS". EDUCATED RISKS VS BENEFITS AND IMPORTANCE. PATIENT CONTINUED TO REFUSE.
[2020-01-30] MEDS: HYDROCODONE/APAP 10/325MG 1 EA TABLET PO PRN (11:34)
[2020-01-30 12:07] VITALS: BP 147/74
--- NOTE | 2020-01-30 14:59 | NUR ---
MS SCRIPT WRITER NOTE PATIENT MEDICALLY CLEARED FOR DISCHARGE. PATIENT IN NO ACUTE DISTRESS. NO SOB NOTED. PATIENT BREATHING IS EVEN AND UNLABORED. DC INSTRUCTIONS PROVIDED. PATIENT VERBALIZED UNDERSTANDING. PATIENT SIGNED BELONGINGS LIST AND HAS BELONGINGS WITH HIM. PATIENT MALONE CATHETER IN PLACE, DRAINING WELL. PATIENT IV LINE PATIENT AND IN PLACE FOR CONTINUED IV ANTIBIOTICS. KEEP IV LINE AND CONTINUE AT BOARD CARE WITH HOME HEALTH PER [employer]. PATIENT REFUSED TO HAVE SKIN ASSESSMENT, DESPITE EDUCATION OF RISKS VS BENEFITS. PATIENT CONTINUED TO REFUSE. PATIENT KEPT CLEAN, DRY AND COMFORTABLE THROUGHOUT SHIFT. PATIENT WAS TURNED AND REPOSITIONED, AND EXTREMITIES OFFLOADED ON TO PILLOWS MUCH PATIENT WOULD ALLOW. PATIENT GOING [place] [facility] WITH TWO BOAT WORKER TO AMBULANCE TO [facility]. AWARE OF DISCHARGE. Addendum: 01/30/20 at 1510 by SERA CORNELIUS RN MS SCRIPT WRITER NOTE PATIENT MEDICALLY CLEARED FOR DISCHARGE. PATIENT IN NO ACUTE DISTRESS. NO SOB NOTED. PATIENT BREATHING IS EVEN AND UNLABORED. DC INSTRUCTIONS PROVIDED. PATIENT VERBALIZED UNDERSTANDING. PATIENT SIGNED BELONGINGS LIST AND HAS BELONGINGS WITH HIM. PATIENT MALONE CATHETER IN PLACE, DRAINING WELL. PATIENT IV LINE PATENT AND IN PLACE FOR CONTINUED IV ANTIBIOTICS. KEEP IV LINE AND CONTINUE AT BOARD CARE WITH HOME HEALTH PER [employer]. PATIENT REFUSED TO HAVE SKIN ASSESSMENT, DESPITE EDUCATION OF RISKS VS BENEFITS. PATIENT CONTINUED TO REFUSE. PATIENT KEPT CLEAN, DRY AND COMFORTABLE THROUGHOUT SHIFT. PATIENT WAS TURNED AND REPOSITIONED, AND EXTREMITIES OFFLOADED ON TO PILLOWS MUCH PATIENT WOULD ALLOW. PATIENT GOING BY [facility] WITH TWO BOAT WORKER TO AMBULANCE TO [facility]. AWARE OF DISCHARGE.
--- NOTE | 2020-02-06 12:34 | NUR ---
APS DEONNA Hunter contacted [employer] MAINTENANCE TECHNICIAN inquiring whereabouts of pt Oniel. Per DEONNA Hunter, she was informed by [facility] Board and care that pt was transported from her facility via ambulance to a hospital. [employer]IATION MAINTENANCE TECHNICIAN informed APS worker that pt has not been at [facility] since his discharge date of 01/29.
== END 2020-01-30 14:30 | disposition home or self-care (01) | DRG 710 ==
LOC: ER 10:51 → MEDSG2 16:18
PROVIDERS: ADMIT Nurse Practitioner Acute Care; ATTEND Nurse Practitioner Acute Care
DX: A41.9 Sepsis, unspecified organism (principal); N17.0 Acute kidney failure with tubular necrosis; E43 Unspecified severe protein-calorie malnutrition; L89.154 Pressure ulcer of sacral region, stage 4; E11.22 Type 2 diabetes mellitus with diabetic chronic kidney disease; G82.20 Paraplegia, unspecified; L03.115 Cellulitis of right lower limb; N31.9 Neuromuscular dysfunction of bladder, unspecified; L89.324 Pressure ulcer of left buttock, stage 4; L89.213 Pressure ulcer of right hip, stage 3; E11.42 Type 2 diabetes mellitus with diabetic polyneuropathy; L89.314 Pressure ulcer of right buttock, stage 4; E11.51 Type 2 diabetes mellitus with diabetic peripheral angiopathy without gangrene; E86.9 Volume depletion, unspecified; L03.116 Cellulitis of left lower limb; N39.0 Urinary tract infection, site not specified; Z59.0 Homelessness; Z66 Do not resuscitate; E11.65 Type 2 diabetes mellitus with hyperglycemia; D63.8 Anemia in other chronic diseases classified elsewhere; Z79.84 Long term (current) use of oral hypoglycemic drugs; Z79.899 Other long term (current) drug therapy; E11.621 Type 2 diabetes mellitus with foot ulcer; F17.200 Nicotine dependence, unspecified, uncomplicated; B96.89 Other specified bacterial agents as the cause of diseases classified elsewhere; L85.3 Xerosis cutis; L97.529 Non-pressure chronic ulcer of other part of left foot with unspecified severity; L97.519 Non-pressure chronic ulcer of other part of right foot with unspecified severity; Z91.19 Patient's noncompliance with other medical treatment and regimen; Z83.3 Family history of diabetes mellitus; Z91.14 Patient's other noncompliance with medication regimen; Z99.3 Dependence on wheelchair; N18.9 Chronic kidney disease, unspecified; R65.20 Severe sepsis without septic shock; M62.562 Muscle wasting and atrophy, not elsewhere classified, left lower leg; M62.561 Muscle wasting and atrophy, not elsewhere classified, right lower leg; Z22.322 Carrier or suspected carrier of Methicillin resistant Staphylococcus aureus
CPT/HCPCS: 36415; 71045-TC; 72220-TC; 76770-TC; 80048-TC; 80053-TC; 80061-TC; 80076-TC; 80202-TC; 81000-TC; 82272-TC; 82550-TC; 82570-TC; 82728-TC; 82962-TC; 83540-TC; 83605-TC; 83735-TC; 83970; 84100-TC; 84155; 84155-TC; 84165; 84300-TC; 84443-TC; 85025-TC; 85652-TC; 87040-TC; 87070-TC; 87081-TC; 87086-TC; 97112-TC; 97530-TC; A6253; A6403; G0378; J0692; J1644; J1815; J2270; J2543; J3370; J3475; J3490; J7040; J7060